=== PATIENT | female | born 1940 | race Caucasian/White ===

== ENCOUNTER 2023-12-15 20:38 | Inpatient (IN) | payer MEDICARE, SELFPAY ==
[2023-12-15 16:29] VITALS: BP 154/71; BMI 16.8
[2023-12-15 16:43] LABS: Hematocrit 39.3 % (37.0-47.0); Mean Corp Hgb Conc. 33.1 g/dL (33.0-37.0); Mean Corpuscular Hgb 28.4 pg (27.0-31.0); Mean Platelet Volume 8.8 fL (7.4-10.4); Platelet Count 389 10^3/uL (130-400); Red Blood Cell Count 4.57 10^6/uL (4.20-5.40); Red Cell Dist. Width 13.3 % (11.5-14.5)
[2023-12-15 16:59] LABS: ALT (SGPT) 15 U/L (0-35); AST (SGOT) 25 U/L (14-36); Albumin 3.6 g/dl (3.5-5.0); Alkaline Phosphatase 108 U/L (38-126); Blood Urea Nitrogen 16 mg/dl (7-17); Calcium 9.3 mg/dl (8.4-10.2); Carbon Dioxide 29 mmol/L (22-30); Chloride 95 mmol/L (98-107); Estimated Creatinine Clearance 49 ml/min; Glucose 163 mg/dl (70-99); Potassium 4.4 mmol/L (3.5-5.1); Sodium 131 mmol/L (135-145); Total Bilirubin 0.3 mg/dl (0.2-1.3); Total Protein 7.6 g/dl (6.3-8.2); eGFR > 60.00
[2023-12-15 17:00] VITALS: BP 146/66
[2023-12-15 19:04] LABS: NT-proBNP 301 pg/ml
[2023-12-15] MEDS: DUONEB 3 ML INH (19:08)
[2023-12-15] MEDS: DECADRON 10 MG IV (19:08)
--- NOTE | 2023-12-15 19:09 | ED.GENMED ---
History of Present Illness
General
Chief Complaint: Breathing Problem
Source: patient and family
Exam Limitations: none
Time Seen by Provider: 12/15/23 17:16
Nursing documentation reviewed up to this point in time: agreed with
Travel History
Have you had any contact with someone who has COVID-19?: No
Do you have any symptoms of coronavirus? Fever > 100 degrees, chills, cough, shortness of breath, sore throat, loss of taste or smell, muscle aches, or headache?: No
History of Present Illness
History of Present Illness:
Patient to ED from [facility] assisted living for low pulse ox noted this AM. SHe has a history of COPD. 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 Follows with pulmonololgy thru [facility]. +POOLE, comfortable at rest. Pulse ox 84%
RA, 92% on 3L NC. She denies fever/chills, recent illness. Chronic cough unchanged. No O2 use at home.
Past History
Past History
ED Past Medical History: COPD, GERD and Other (Glaucoma)
ED Past Surgical History: Other (abdominal hernia repair)
Social History
Tobacco: Non-smoker
Alcohol: None
Drug: None
Living: assisted living
Review of Systems
Review of Systems
Allergies reviewed?: Yes
All Other Systems: ROS reviewed and negative except as documented in HPI and ROS
Constitutional: Reports no symptoms
EENT: Reports no symptoms
Respiratory: Reports cough and trouble breathing
Cardiac: Reports no symptoms
ABD/GI: Reports no symptoms
: Reports no symptoms
Musculoskeletal: Reports no symptoms
Skin: Reports no symptoms
Neurological: Reports no symptoms
Psychiatric: Reports no symptoms
Phy Exam
General Physical Exam
General Presentation: well appearing
General age: appears stated age
General Skin: warm and dry
General Habitus: normal
Cardiovascular Exam
Cardiovascular Exam: regular rate/rhythm and no edema
Pulmonary Exam
Pulmonary Exam: chest non tender and decreased breath sounds
Breath Sounds: Wheeze: generalized (scattered exp. wheeze)
Gastrointestinal Exam
Gastrointestinal Exam: normal bowel sounds, non tender and soft
Musculoskeletal Exam
Musculoskeletal Exam: full ROM and neuro vasc intact
Skin Exam
Skin Exam: normal color, warm/dry and no rash
Psychiatric Exam
Psychiatric Exam: normal mood/affect
Scores
Heart Failure Risk
Heart Failure Risk Score: Not Applicable
Course
Orders/Labs/Results
Orders:
Orders
12/15/23 16:28
Electrocardiogram (*1) Urgent
Reason for Study: Shortness of Breath
EKG- Treatment ONCE
12/15/23 16:34
CMP [Comprehensive Metabolic Panel] Urgent
Complete Blood Count/No Diff Urgent
NT-proBNP Urgent
Comment: ADD ON
12/15/23 17:43
CR Chest - 2 Views Urgent
Comment:
Reason For Exam: SOB
12/15/23 18:13
Add On- LAB Urgent
Tests Added?: BNP
Urinalysis Reflex To Culture Urgent
12/15/23 19:00
Dexamethasone Sod Phosphate [Decadron] 10 mg IV NOW STA
Ipratropium/Albuterol Sulfate [Duoneb] 3 ml INH R NOW STA
12/15/23 19:38
COVID-19 Antigen Urgent
Source: Nasal Swab
12/15/23 20:21
Admit/Transfer Patient As Directed
Co-Sign Provider:
Level of Care: Inpatient admission
Assign to:: Medical/Surgical
Physician / Group: gabriel castro
Diagnosis: acute hypoxic resp insuff 2/2 copd vs ILD
Reason for Hospitalization: acute hypoxic resp insuff 2/2 copd vs ILD
Expected length of stay greater than two midnights?: Yes
ELOS- Estimated Length of Stay in days: 4
I certify the patient meets the requirements for IP care: Yes
Code Status As Directed
Resuscitation Status: Do not resuscitate
Reached after discussion with pt or family/Healthcare POA: Yes
Based on pt advanced directive or healthcare POA form: Yes
Decision communicated with: Per patient was signed bedside
DNR Bracelet Application ONCE
12/15/23 21:00
Doxycycline [Vibramycin] 100 mg PO Q12
Abnormal Lab Results
12/15/23
16:34
WBC 12.0 H 10^3/uL
(4.8-10.8)
Sodium 131 L mmol/L
(135-145)
Chloride 95 L mmol/L
(98-107)
Glucose 163 H mg/dl
(70-99)
12/15/23 16:34
12/15/23 16:34
Vital Signs
Initial and Last Documented VS:
Initial Vital Signs
Temp Pulse Resp BP Pulse Ox
98.1 F 98 24 154/71 92
12/15/23 16:29 12/15/23 16:29 12/15/23 16:29 12/15/23 16:29 12/15/23 16:29
Last Documented Vital Signs
Temp Pulse Resp BP Pulse Ox
97.8 F 84 31 146/66 90
12/15/23 20:25 12/15/23 19:00 12/15/23 19:00 12/15/23 17:00 12/15/23 19:50
*Radiology
Radiology exam reviewed: radiology read reviewed
*Pulse Oximetry
Patient hypoxic: yes
*Critical Care Note
Total Time (30-74mins, 75-104mins- exclusive of procedures): Not Applicable
ED Attending Note
-
Portions of this chart may have been created with voice recognition software.� Occasional wrong word or��sound alike� substitutions may have occurred due to the inherent limitations of voice recognition software.
Discharge Plan
Departure
Patient Disposition: Admit
Date of Disposition: 12/15/23
Time of Disposition: 19:17
Presentation/result/management discussed w/ accepting MD/DO: Hospitalist
Patient with high blood pressure during this ER visit?: No
Condition: Fair
Covid-19: Not Applicable
Discharge Problem:
Asthma exacerbation in COPD
Interventions
Interventions:
*Risk Screen - Suicide Last Done: 12/15/23 16:29
*General Assessment Last Done: 12/15/23 16:29
*Neglect/Abuse Screening Last Done: 12/15/23 20:51
*ED COVID-19 Vaccine History Last Done: 12/15/23 16:29
ED- Cardiac Assessment Last Done: 12/15/23 19:51
ED- Pulmonary Assessment Last Done: 12/15/23 19:51
--- NOTE | 2023-12-15 19:48 | HPS.HSE ---
Addendum entered and electronically signed by Yo Bolanos DO 12/15/23 20:59:
Patient seen and examined independently. Agree with findings and plan as set forth by TANYA Olivarez.
Patient is an 83y F with PMH significant for COPD and glaucoma who presents to ED for evaluation of POOLE. Patient recently moved into assisted living at [facility] and was walking around that facility with staff today when she was noted to be
visibly dyspneic with exertion. Her oxygen saturations were reportedly 84% on room air. Patient was brought to the ED for evaluation. She reports feeling somewhat tired today. but denies any other complaints. She denies feeling SOB - despite
having noted increased work of breathing with exertion.
Patient states that she has COPD and is followed by Pulm at [place]. She has minimal and remote history of smoking (< 5 pack years and quit in her 20s). No notable environmental exposures. No family history of pulmonary disease.
Ass:
Acute Hypoxemic Respiratory Failure
COPD with Acute Exacerbation
Suspected ILD
Glaucoma
Plan:
Admit for further evaluation and treatment.
History / exam seem more c/w ILD than COPD.
Continue steroids and follow for any clinical improvement.
Continue nebs, O2 support, etc.
Doxycycline for now empirically.
Pulmonary evaluation. CT chest for further evaluation.
Try to obtain records from her regular Hematologist Oncologist.
Original Note:
Family Physician
-
Family Physician: Rima Norman MD
Chief Complaint
-
Hypoxia, lethargy
History of Present Illness
83-year-old female from [facility] assisted living for hypoxia 84% on room air. Her family reported dyspnea on exertion with chronic cough occasional yellow in color, unchanged patient history of MAC years ago according to ER report. Patient states
that she was tired today due to not sleeping. She did not want to participate with PT and OT today. According to her son at bedside she moved from her single home to [facility] a few days ago. PT and OT have been assessing her daily
but today she did not want to participate. He states a nurse did a visit at her apartment noted her to be hypoxic on room air. She follows with pulmonology through [facility] Dr. Jeong for presumed COPD. She denies any history of interstitial lung
disease. She denies fever, chills, sore throat, headache, chest pain, palpitations, shortness of breath, abdominal pain, nausea, vomiting, diarrhea, urinary symptoms. She has medical history of COPD, GERD, glaucoma.
Medical History
Past Medical History
Past Medical History: Reports Other
Additional Past Medical History:
COPD
GERD
Glaucoma
Past Surgical History: Reports Other
Additional Past Surgical History:
Cataract extraction bilaterally with lens implants
Social History
Tobacco: Former Smoker (Age 20 2040)
Personal: Single
Living: Other (Personal care [facility])
Employment: Retired
Family History
Family History: Other (Mother of CVA father of pulmonary issues)
Allergies / Home Medications
Allergies reflects when Allergies were last updated in [facility].
Home Medications with original date entered in [facility]
Allergy/Medication List:
Allergies
Allergy/AdvReac Type Severity Reaction Status Date / Time
No Known Allergies Allergy Verified 12/15/23 16:41
Home Medications
fluticasone 100 mcg-salmeterol 50 mcg/dose blistr powdr for inhalation (Wixela Inhub) 1 inh inhalation R BID 12/15/23
latanoprost 0.005 % eye drops 1 drp BOTH EYES BID 12/15/23
Review of Systems
-
History Source: Patient and Family (Son at bedside)
A 12 point ROS was completed and negative except as noted: Yes
Constitutional: Reports Fatigue; Denies Fever or Chills
EENT: Denies Sore Throat or Runny Nose
Respiratory: Reports Cough (chronic ) and Trouble Breathing
Cardiac: Denies Chest Pain, Palpitations or Syncope
Abdomen/GI: Denies Abdominal Pain, Nausea, Vomiting, Diarrhea, Constipated, Bloody Stools or Black Stools
: Denies Dysuria, Frequency, Flank Pain, Incontinence or Difficulty Voiding
Musculoskeletal: Denies Joint Pain or Edema
Skin: Denies Itching or Rash
Neurological: Denies Dizzy, Headache or Weakness
Endocrine: Reports No Symptoms
Hematologic/Lymphatic: Reports No Symptoms
Psych: Reports Calm
Physical Exam
Vital Signs
Vital Signs
Temp Pulse Resp BP Pulse Ox
98.1 F 84 31 146/66 92
12/15/23 16:29 12/15/23 19:00 12/15/23 19:00 12/15/23 17:00 12/15/23 16:29
Physical Exam
General: Comfortable and Conversant; No Pain, Fever or Chills
HEENT: NormoCephalic, Anicteric, Moist mucous membranes, PERRLA, Hundred Conjunctivae and No Ptosis
Respiratory: Rales (Coarse throughout both lung espinoza); No Wheezes
Cardiac: S1/S2 and Regular Rhythm; No Murmur, Rub, Gallop, Peripheral Edema or JVD
Breast: Deferred by me
GI: Soft, Non Tender, Normal Bowel Sounds and No Hepatosplenomegaly
Rectal: Deferred by Provider
Genito-urinary: Deferred by me
Musculoskeletal: No Cyanosis and No Edema
Skin: Warm and Dry; No Rash or Jaundice
Neuro: AO x 3, No Motor Deficits and No Sensory Deficits; No Slurred Speech, Facial Droop, Tremors or Sedated
Psych: Calm
Laboratory Results
-
12/15/23 16:34
12/15/23 16:34
Laboratory Results
Total Bilirubin 0.3 mg/dl (0.2-1.3) 12/15/23 16:34
AST 25 U/L (14-36) 12/15/23 16:34
ALT 15 U/L (0-35) 12/15/23 16:34
Alkaline Phosphatase 108 U/L (38-126) 12/15/23 16:34
Impression/Plan
-
Impression/plan:
Admit to MedSurg
#Acute hypoxic respiratory insufficiency secondary to COPD/interstitial fibrosis
#Acute on chronic COPD exacerbation vs interstitial fibrosis flare
84% RA, 90% 4 L nasal cannula
Continue Wixela
- COVID neg
Sputum culture
-Doxycycline 100 mg every 12 hours
-IV IV Decadron 10 mg given in ER will continue Decadron 4 mg every 12 hours
-Will obtain records from patient's wet pour supervisor [facility] Dr. Jeong
-Consult pulmonary
-PT/OT/case fitter ezequiel
CXR: Extensive diffuse interstitial markings throughout both lung espinoza more prominent on right than left consistent with interstitial fibrosis. Superimposed acute inflammatory changes not excluded
EKG: NSR left anterior fascicular block HR 92 bpm, QTc 417 MS
#GERD
-Was on prior Prilosec
Glaucoma
Continue latanoprost
DVT prophylaxis
Subcu Lovenox
DNR per patient with son at bedside
[2023-12-15 20:01] LABS: COVID-19 Antigen Negative (Negative)
[2023-12-15 21:42] VITALS: BP 136/66; BMI 16.2
--- NOTE | 2023-12-15 21:45 | PTCARENOTE ---
Patient received from the ED via stretcher, pt accompanied by nephew. Patient ambulated into the room, AAOx3, VSS. 94% O2 sat on 4L O2 NC. Patient oriented to the room, educated about reporting are concerns, call benson is within reach.
[2023-12-15] MEDS: VIBRAMYCIN 100 MG PO (22:20)
[2023-12-15 23:50] VITALS: BP 118/57
[2023-12-16] MEDS: ADVAIR HFA 45/21 MCG INHALER INH (05:55)
[2023-12-16 06:30] LABS: Urine Albumin Negative (Neg - Trace); Urine Bilirubin Negative (Negative); Urine Character Clear (Clear); Urine Color Yellow; Urine Glucose Negative (Negative); Urine Ketone Negative (Negative); Urine Leukocyte Negative (Negative); Urine Nitrite Negative (Negative); Urine Occult Blood Negative (Negative); Urine Specific Gravity 1.015 (<1.030); Urine Urobilinogen Negative (Neg - 1+)
[2023-12-16 07:10] LABS: Glucose - Point of Care 143 mg/dl (70-99)
[2023-12-16] MEDS: DECADRON 4 MG IV ×2 (07:31→19:34)
[2023-12-16] MEDS: VIBRAMYCIN 100 MG PO ×2 (07:31→19:34)
[2023-12-16 07:55] VITALS: BP 133/75
[2023-12-16 08:43] LABS: % Basophils 0.2 % (0-2); % Immature Granulocytes 0.5 % (0-0.5); % Lymphocytes 8.7 % (20.5-51.1); % Monocytes 1.9 % (1.7-9.3); % Neutrophils 88.7 % (42.2-75.2); Absolute Lymphocytes 0.5 10^3/uL (1.2-3.4); Absolute Monocytes 0.1 10^3/uL (0.1-0.6); Absolute Neutrophils 5.5 10^3/uL (1.4-6.5); Hematocrit 40.3 % (37.0-47.0); Hemoglobin 13.4 g/dL (12.0-16.0); Mean Corp Hgb Conc. 33.3 g/dL (33.0-37.0); Mean Corpuscular Hgb 28.3 pg (27.0-31.0); Nucleated Red Blood Cells % 0 %; Platelet Count 393 10^3/uL (130-400); Red Blood Cell Count 4.74 10^6/uL (4.20-5.40); Red Cell Dist. Width 13.2 % (11.5-14.5); White Blood Cell Count 6.2 10^3/uL (4.8-10.8)
[2023-12-16 10:03] LABS: ALT (SGPT) 16 U/L (0-35); AST (SGOT) 25 U/L (14-36); Albumin 3.7 g/dl (3.5-5.0); Alkaline Phosphatase 89 U/L (38-126); Blood Urea Nitrogen 17 mg/dl (7-17); Calcium 9.7 mg/dl (8.4-10.2); Carbon Dioxide 29 mmol/L (22-30); Chloride 96 mmol/L (98-107); Estimated Creatinine Clearance 47 ml/min; Glucose 142 mg/dl (70-99); Potassium 5.2 mmol/L (3.5-5.1); Sodium 132 mmol/L (135-145); Total Bilirubin 0.5 mg/dl (0.2-1.3); Total Protein 7.8 g/dl (6.3-8.2); eGFR > 60.00
[2023-12-16 10:40] VITALS: PULSE 109; O2SAT 94
[2023-12-16 10:47] VITALS: BP 158/82; PULSE 106; O2SAT 94
--- NOTE | 2023-12-16 10:56 | CON.PUL ---
Consultation
Consultation Request
Date/Time Consultation Requested: 12/15/2023 - 2128
Date/Time Consultation Performed: 12/16/2023927
Requesting Provider: TANYA Olivarez
Performing Provider: Warren Morse MD
Reason for Consultation: Hypoxia; Abnormal CT Chest
Medical History
-
Chief Complaint: Hypoxia + lethargy
History of Present Illness:
83-year-old female former tobacco smoker with a past medical history of GERD, glaucoma and reported history of COPD who presents with SOB from [facility]. In triage patient was 85% on room air and she denied chest pain. She was placed onto 3 L/min
with sats improving to 92%; she was afebrile to 98.1 �F, she was tachypneic to 24 breaths/min, hypertensive to 154/71 and heart rate was 98 bpm. Labs showed leukocytosis to 12, Hb 13, chloride 95, sodium 131, proBNP 301, urinalysis negative for UTI
and COVID antigen negative. CXR showed coarse interstitial markings bilaterally (R >L), and she was given Decadron and DuoNebs in the ER and admitted to the hospitalist service. CT chest was obtained today showing diffuse bronchiectasis mainly in
the RUL, RML, lingula and lower lobes with tree-in-bud nodular opacities and small patchy opacities predominantly in the lower lobes, with dependent subsegmental atelectasis and possible 1 cm right breast nodule. There is no pneumothorax, pleural
effusion, pericardial effusion or emphysema seen. Given these findings, pulmonary service now consulted for additional management/recommendations.
When I saw the patient she was sitting in bed in no acute distress on 3 L/min nasal cannula. She was breathing comfortably. I asked her about her reported history of MAC as well as her COPD and she is not a good historian. She does not seem to
know what she takes for her COPD, she does not know if she has had a history of MAC and she is unable to recall any specific facts. She seems to be breathing comfortably though, and is mainly overwhelmed because she seems to be moving her residence
and that is what she is focusing on during our conversation. She currently denies headache chest pain, abdominal pain, fevers or chills.
PMHx: Reported history of COPD, GERD, glaucoma, former tobacco use
PSHx: Cataract surgery
Past Medical History
Past Medical History: Other (Above as per HPI)
Past Surgical History: Other (Above as per HPI)
Social History
Tobacco: Former Smoker
Alcohol: None
Drug: None
Personal: Single
Living: Other (Personal care at [facility])
Employment: Retired
Family History
Family History: Other (CVA: Mother)
Allergies / Home Medications
Allergies
Allergy/AdvReac Type Severity Reaction Status Date / Time
No Known Allergies Allergy Verified 12/15/23 16:41
Home Medications
�Medication �Instructions �Recorded �Confirmed �Last Taken �Type
fluticasone 100 mcg-salmeterol 50 1 inh inhalation R BID 12/15/23 12/15/23 Unknown History
mcg/dose blistr powdr for Lung/Breathing Issues
inhalation (Wixela Inhub)
latanoprost 0.005 % eye drops 1 drp BOTH EYES BID Eye Condition 12/15/23 12/15/23 Unknown History
Review of Systems
-
History Source: Patient
All other systems: Negative unless noted
Vitals / Labs / Diagnostic Testing
Vital Signs
Temp Pulse Resp BP Pulse Ox
97.3 F 81 16 133/75 94
12/16/23 07:55 12/16/23 07:55 12/16/23 07:55 12/16/23 07:55 12/16/23 07:55
Lab Data
12/16/23 08:20
12/16/23 08:20
Diagnostic Testing:
Physical Exam
-
HEENT: Normocephalic and Anicteric
Cardiovascular: S1/S2 and Peripheral Edema (negative)
Respiratory: Wheeze (Negative), Rales (negative) and Rhonchi (Bilaterally (R >L))
GI: Soft, Non Distended, Non Tender and Normal Bowel Sounds
Neurology: Awake and Alert
Skin: Warm and Dry
General: Comfortable, Chills (negative) and Sweats (negative)
Assessment
-
Assessment: 83-year-old female former tobacco smoker with a past medical history of GERD, glaucoma and reported history of COPD who presents with SOB from [facility]. In triage patient was 85% on room air and she denied chest pain. She was placed
onto 3 L/min with sats improving to 92%; she was afebrile to 98.1 �F, she was tachypneic to 24 breaths/min, hypertensive to 154/71 and heart rate was 98 bpm. Labs showed leukocytosis to 12, Hb 13, chloride 95, sodium 131, proBNP 301, urinalysis
negative for UTI and COVID antigen negative. CXR showed coarse interstitial markings bilaterally (R >L), and she was given Decadron and DuoNebs in the ER and admitted to the hospitalist service. CT chest was obtained today showing diffuse
bronchiectasis mainly in the RUL, RML, lingula and lower lobes with tree-in-bud nodular opacities and small patchy opacities predominantly in the lower lobes, with dependent subsegmental atelectasis and possible 1 cm right breast nodule. There is
no pneumothorax, pleural effusion, pericardial effusion or emphysema seen. Given these findings, pulmonary service now consulted for additional management/recommendations.
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
Impression:
#Acute exacerbation of COPD � although no PFTs on file she has a reported history of COPD and is on Wixela 100mcg BID at home
-After reviewing her CT chest from 12/16/2023, she has bronchiectasis seen in multiple lobes including her right upper lobe, right middle lobe, lingula and both lower lobes; there is also tree-in-bud nodular opacities seen in her lower lobes
bilaterally and other reticular opacities suspicious for underlying ILD; also cavitary lesions in her posterior RUL
#Suspected community acquired pneumonia with lower lobe predominant tree-in-bud nodules and small patchy opacities; differential also includes Aspergillosis vs worsening NTM disease
#Reported Hx of MAC --> this could be the cause of the bronchiectasis and cavitary lesion seen on CT chest from 12/16/2023
#Acute respiratory failure with hypoxia due to above
#Hypochloremic, hyponatremia � likely due to reduced PO intake
Plan:
- Although no PFTs on file or prior imaging, would treat her for COPD exacerbation with systemic steroids and Abx
- Continue decadron and wean as tolerated - currently on 4mg IV q12hr
- Given her clinical presentation with acute hypoxia and lower lobe predominant tree-in-bud nodules, we should do infectious workup with blood + sputum Cx, and change doxy to Azithromycin (QTc: 417ms from 12/15/2023 EKG) + start rocephin to cover CAP
- I do not see emphysema on her CT chest, and I presume her COPD is due to her bronchiectasis, which I presume is due to her Hx of pulmonary MAC
- Need to obtain prior records of how she was Dx with MAC, any treatment she has undergone, and recent imaging she has done, etc - obtain entire record at least for last 2-[address] Jeong @ [facility]
- Would not be unreasonable to consult ID once we confirm she has a Hx of MAC and get more history on that
- Trend WBC
- Continue maintenance inhaler with Advair HFA 45mg
- Continue prn duonebs
- Mucolytics as needed with mucinex + flutter valve; may need vest therapy if she has difficulty expectorating (no current indication of this)
- Maintain SpO2 >88-94% with supplemental O2 as needed
- Incentive spirometer encouraged
- Replete electrolytes with K>4, Mg>2
- Maintain euglycemia with goal BG >100 and <180
- prn nebulized bronchodilators
- DVT ppx
Pulmonary service will continue to follow along. She should follow-up with her pulmonary physician at [facility] following discharge, unless she would like to transfer her care to us.
Total time spent today was 55 minutes for this encounter. Time includes reviewing laboratory test/imaging results, reviewing pertinent medical records, obtaining and reviewing medical history, performing an appropriate exam, ordering medications,
tests and procedures. Time also includes documentation of this encounter, coordinating patient care and communicating with other healthcare professionals. Total time does not include separately billed tests performed on this date of service.
Data:
CT Chest without contrast 12-16-2023:
Prominent interstitial markings widespread bilaterally most likely predominantly chronic including some areas of honeycombing and bronchiectasis.
Some dependent subsegmental atelectasis in the right lung and some nonspecific tree-in-bud opacities in the left lower lobe.
Cannot exclude approximate 1 cm medial right breast nodule.
[2023-12-16] MEDS: ADVAIR HFA 45/21 MCG INHALER 2 PUFF INH ×2 (11:14→20:32)
--- NOTE | 2023-12-16 11:39 | CM ---
Patient seen bedside, initial assessment completed. Patient reports she resides at [facility]. CM placed call to [facility] to confirm patient is resident. Patient reports she does not use any DME to ambulate, is not on home O2,
denies VN or SNF history. Patient confirms PCP Dr. Norman, pharmacy used is [facility]. Patient confirms prescription coverage, denies food insecurities. CM will continue to follow for all discharge planning needs.
Plan; return to [facility], watch for VN needs.
--- NOTE | 2023-12-16 12:05 | W.PN.HOSP.TC ---
Today's Communication/Plan
-
Monitor vital signs
see plan
Continue with steroids
Pulmonary to see
Wean oxygen as tolerated
Assessment / Plan
Assessment / Plan
General: Comfortable and Conversant
HEENT: NormoCephalic, Anicteric, Moist mucous membranes
Respiratory: Rales (Coarse throughout both lung espinoza); No Wheezes
Cardiac: S1/S2 and Regular Rhythm; No Murmur
GI: Soft, Non Tender, Normal Bowel Sounds
Musculoskeletal: No Edema
Neuro: AO x 3, No Motor Deficits
Psych: Calm
cute hypoxic respiratory insufficiency secondary to COPD/interstitial fibrosis
#Acute on chronic COPD exacerbation vs interstitial fibrosis flare
84% RA, 90% 4 L nasal cannula
Continue Wixela
- COVID neg
Sputum culture
-Doxycycline 100 mg every 12 hours
cw IV decadron
-Will obtain records from patient's upper and bottom lacer hand [facility] Dr. Jeong
pulmonary consulted
-PT/OT/spring encaser ezequiel
CT scan with prominent interstitial marking widespread bilaterally most likely predominantly chronic including some areas of honeycombing and bronchiectasis. Also some dependent subsegmental atelectasis. cannot exclude breast nodule
CXR: Extensive diffuse interstitial markings throughout both lung espinoza more prominent on right than left consistent with interstitial fibrosis. Superimposed acute inflammatory changes not excluded
mild hyperkalemia
monitor
Mild hyponatremia
monitor
#GERD
-Was on prior Prilosec
Glaucoma
Continue latanoprost
DVT prophylaxis
Subcu Lovenox
DNR per patient with son at bedside on admission
Anticipated Discharge: > 48 hours
Subjective/Interval History
-
Date of Service: December 16, 2023
denies pain
Objective Data
-
Labs:
Laboratory Results
12/16/23
08:20
WBC 6.2
Hgb 13.4
Hct 40.3
Plt Count 393
Sodium 132 L
Potassium 5.2 H
Chloride 96 L
Carbon Dioxide 29
BUN 17
Creatinine 0.6
Glucose 142 H
Calcium 9.7
Total Bilirubin 0.5
AST 25
ALT 16
Alkaline Phosphatase 89
Vital Signs:
Vital Signs
Temp Pulse Resp BP Pulse Ox
97.3 F 86 17 133/75 95
12/16/23 07:55 12/16/23 11:20 12/16/23 11:20 12/16/23 07:55 12/16/23 11:20
I&O
12/15/23 12/16/23 12/17/23
06:59 06:59 06:59
Intake Total 480 / 480
Output Total 350 / 350
Balance 130 / 130
[2023-12-16] MEDS: LOKELMA 5 GRAM PO (12:33)
[2023-12-16 13:42] VITALS: BMI 16.2
[2023-12-16 15:45] VITALS: BP 130/68
[2023-12-16] MEDS: ZITHROMAX INFUSION 250 IV (15:52)
[2023-12-16] MEDS: LOVENOX 40 MG SC (17:08)
[2023-12-16] MEDS: STERILE WATER FOR INJECTION 10 ML IV (17:08)
[2023-12-16] MEDS: ROCEPHIN 1000 MG IV (17:08)
[2023-12-16 23:29] VITALS: BP 127/73
--- NOTE | 2023-12-17 05:28 | DOWNTIME ---
There was a [employer] Administrator Downtime on 12/17/2023 from 0100 to 12/17/2023 at 0337. Downtime documentation of patient's care, including medication administrations, has been reconciled in the electronic record per guidelines. Refer to the
patient's paper chart under the miscellaneous tab to see printed paper medication records and downtime forms.
[2023-12-17 07:20] LABS: % Basophils 0.2 % (0-2); % Immature Granulocytes 0.6 % (0-0.5); % Lymphocytes 5.2 % (20.5-51.1); % Monocytes 5.7 % (1.7-9.3); % Neutrophils 88.3 % (42.2-75.2); Absolute Immature Granulocytes 0.1 10^3/uL (0-0.05); Absolute Lymphocytes 0.7 10^3/uL (1.2-3.4); Absolute Monocytes 0.7 10^3/uL (0.1-0.6); Absolute Neutrophils 11.1 10^3/uL (1.4-6.5); Hematocrit 37.1 % (37.0-47.0); Hemoglobin 12.2 g/dL (12.0-16.0); Mean Corp Hgb Conc. 32.9 g/dL (33.0-37.0); Mean Corpuscular Hgb 28.3 pg (27.0-31.0); Mean Corpuscular Volume 86.1 fL (81.0-99.0); Mean Platelet Volume 9.1 fL (7.4-10.4); Nucleated Red Blood Cells % 0 %; Platelet Count 368 10^3/uL (130-400); Red Blood Cell Count 4.31 10^6/uL (4.20-5.40); White Blood Cell Count 12.6 10^3/uL (4.8-10.8)
[2023-12-17 07:45] VITALS: BP 143/62
[2023-12-17] MEDS: ADVAIR HFA 45/21 MCG INHALER 2 PUFF INH ×2 (07:57→19:37)
[2023-12-17 08:07] LABS: ALT (SGPT) 15 U/L (0-35); AST (SGOT) 24 U/L (14-36); Albumin 3.6 g/dl (3.5-5.0); Alkaline Phosphatase 79 U/L (38-126); Blood Urea Nitrogen 22 mg/dl (7-17); Calcium 9.7 mg/dl (8.4-10.2); Carbon Dioxide 26 mmol/L (22-30); Chloride 98 mmol/L (98-107); Estimated Creatinine Clearance 47 ml/min; Glucose 133 mg/dl (70-99); Potassium 4.7 mmol/L (3.5-5.1); Sodium 132 mmol/L (135-145); Total Bilirubin 0.4 mg/dl (0.2-1.3); Total Protein 7.1 g/dl (6.3-8.2); eGFR > 60.00
[2023-12-17] MEDS: ZITHROMAX 250 MG PO (08:26)
[2023-12-17] MEDS: DECADRON 4 MG IV ×2 (08:27→19:36)
--- NOTE | 2023-12-17 08:57 | PN.CDI ---
CDI
- -
CDI:
Physician Documentation Request
Admit Date: 12/15/23 20:38
Dear Doctor Claude,
Clinical Indicators:
Patient admitted with COPD exacerbation.
BMI: 16.2
12/15 note/assessment: -Muscle Loss- calf, moderate quads, moderate clavicle, severe temporal, moderate
-Subcutaneous Loss: rib cage, severe orbital, severe
-'With Observed Fat and Muscle wasting pt meets AND/ASPEN for moderate protein
calorie malnutrition of chronic illness.'
Based on the above information and your assessment, which of the following most accurately represents the patient's nutritional status?
Moderate Protein Calorie Malnutrition
Mild Protein Calorie Malnutrition
Other, please specify
[place] Criteria ([facility] Hospitalist 2017)
2 or more criteria must be present for either
non severe or severe malnutrition
Note that the criteria differs related to the
presence of an acute or chronic illness
Acute Illness Chronic Illness
Energy Intake Non Severe: <75% for >7 days Non Severe: <75% for >1 month
Severe: <50% for >5 days Severe: <75% for >1 month
Weight Loss Non Severe: 1-2% over 1 week Non Severe: 5% over 1 month
5% over 1 month 7.5% over 3 months
7.5% over 3 months 10% over 6 months
1 year N/A 20% over 1 year
Severe: >2% over 1 week Severe: >5% over 1 month
>5% over 1 month >7.5% over 3 months
>7.5% over 3 months >10% over 6 months
1 year N/A >20% over 1 year
Body Fat Non Severe: Mild Decrease Non Severe: Mild Loss
Severe: Moderate Decrease Severe: Severe Loss
Muscle Mass Non Severe: Mild Decrease Non Severe: Mild Loss
Severe: Moderate Decrease Severe: Severe Loss
Fluid Accumulation Non Severe: Mild Accumulation Non Severe: Mild Accumulation
Severe: Moderate to severe Severe: Moderate to severe
accumulation accumulation
Reduced Materials Tech Strength Non Severe: N/A Non Severe: N/A
Severe: Measurably reduced Severe: Measurably reduced
Additional criteria that can be used to Determine if Mild or Moderate Malnutrition ([employer] Manual 2018)
Mild Moderate Severe
Albumin gm/dl <3.0 gm/dl <2.5 gm/dl <2.0 gm/dl
Pre Albumin mg/dl <15 gm/dl <10 mg/dl <5.0 mg/dl
BMI <18.5 <17 <16
Use of terms such as suspected, likely, concern for, or probable (associated with a specific diagnosis that is being evaluated, monitored, or treated as if it exists) are acceptable and can be coded in the inpatient setting, when documented at the
time of discharge.
Thank you,
ANTONIO Torres RN
CDI Specialist
available via tiger text
Please use your independent medical judgment in providing your response.
--- NOTE | 2023-12-17 10:11 | W.PN.PUL3 ---
Today's Communication / Plan
-
Continue maintenance inhaler with Advair 45mcg
Steroids with Decadron
Abx for CAP
Infectious workup
Obtain medical records from [facility], Pulmonary via Dr. Jeong
Assessment
-
Assessment: 83-year-old female former tobacco smoker with a past medical history of GERD, glaucoma and reported history of COPD who presents with SOB from [employer]. In triage patient was 85% on room air and she denied chest pain. She was placed
onto 3 L/min with sats improving to 92%; she was afebrile to 98.1 �F, she was tachypneic to 24 breaths/min, hypertensive to 154/71 and heart rate was 98 bpm. Labs showed leukocytosis to 12, Hb 13, chloride 95, sodium 131, proBNP 301, urinalysis
negative for UTI and COVID antigen negative. CXR showed coarse interstitial markings bilaterally (R >L), and she was given Decadron and DuoNebs in the ER and admitted to the hospitalist service. CT chest was obtained today showing diffuse
bronchiectasis mainly in the RUL, RML, lingula and lower lobes with tree-in-bud nodular opacities and small patchy opacities predominantly in the lower lobes, with dependent subsegmental atelectasis and possible 1 cm right breast nodule. There is
no pneumothorax, pleural effusion, pericardial effusion or emphysema seen. Given these findings, pulmonary service now consulted for additional management/recommendations.
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
Impression:
#Acute exacerbation of COPD � although no PFTs on file she has a reported history of COPD and is on Wixela 100mcg BID at home
-After reviewing her CT chest from 12/16/2023, she has bronchiectasis seen in multiple lobes including her right upper lobe, right middle lobe, lingula and both lower lobes; there is also tree-in-bud nodular opacities seen in her lower lobes
bilaterally and other reticular opacities suspicious for underlying ILD; also cavitary lesions in her posterior RUL
#Suspected community acquired pneumonia with lower lobe predominant tree-in-bud nodules and small patchy opacities; differential also includes Aspergillosis vs worsening NTM disease
#Reported Hx of MAC --> this could be the cause of the bronchiectasis and cavitary lesion seen on CT chest from 12/16/2023
#Acute respiratory failure with hypoxia due to above
#Hypochloremic, hyponatremia � likely due to reduced PO intake
Plan:
- Although no PFTs on file or prior imaging, would treat her for COPD exacerbation with systemic steroids and Abx
- Continue decadron and wean as tolerated - currently on 4mg IV q12hr --> can wean tomorrow to 2mg IV q12hr
- Given her clinical presentation with acute hypoxia and lower lobe predominant tree-in-bud nodules, check infectious workup with blood + sputum Cx, and on 12/15 I changed doxy to Azithromycin (QTc: 417ms from 12/15/2023 EKG) + started rocephin to
cover CAP
- I do not see emphysema on her CT chest, and I presume her COPD is due to her bronchiectasis, which I presume is due to her Hx of pulmonary MAC
- Patient is a poor historian, hence need to obtain prior records of how she was Dx with MAC, any treatment she has undergone, and recent imaging she has done, etc - obtain entire record at least for last 2-[address] Jeong @ [facility]
- Would not be unreasonable to consult ID once we confirm she has a Hx of MAC and get more history on that
- Trend WBC
- Continue maintenance inhaler with Advair HFA 45mg 2 puffs BID, rinsing mouth after use
- Continue prn duonebs
- Mucolytics as needed with mucinex + flutter valve; may need vest therapy if she has difficulty expectorating (no current indication of this)
- Maintain SpO2 >88-94% with supplemental O2 as needed
- Incentive spirometer encouraged
- Replete electrolytes with K>4, Mg>2
- Maintain euglycemia with goal BG >100 and <180
- prn nebulized bronchodilators
- DVT ppx
Pulmonary service will continue to follow along. She should follow-up with her pulmonary physician at [facility] following discharge, unless she would like to transfer her care to us.
Total time spent today was 35 minutes for this encounter. Time includes reviewing laboratory test/imaging results, reviewing pertinent medical records, obtaining and reviewing medical history, performing an appropriate exam, ordering medications,
tests and procedures. Time also includes documentation of this encounter, coordinating patient care and communicating with other healthcare professionals. Total time does not include separately billed tests performed on this date of service.
Data:
CT Chest without contrast 12-16-2023:
Prominent interstitial markings widespread bilaterally most likely predominantly chronic including some areas of honeycombing and bronchiectasis.
Some dependent subsegmental atelectasis in the right lung and some nonspecific tree-in-bud opacities in the left lower lobe.
Cannot exclude approximate 1 cm medial right breast nodule.
Subjective Data
-
Date of Service:
Date of Service: December 17, 2023
Chief Complaint: Pulmonary Follow Up
Subjective:
Patient seen and evaluated today at bedside. She feels well. Breathing comfortably on 2 L/min nasal cannula. Per the bedside RN, patient does appear short of breath when she exerts herself. No cough reported. Patient denies headache, chest
pain, fevers or chills. Patient afebrile overnight.
Review of Systems
General: Other (Negative unless mentioned above)
Objective Data
Data Reviewed
Vital Signs / I&O / Oxygen:
Vital Signs
Temp Pulse Resp BP Pulse Ox
97.5 F 80 16 143/62 96
12/17/23 07:45 12/17/23 07:55 12/17/23 07:55 12/17/23 07:45 12/17/23 08:00
Intake and Output
12/16/23 12/17/23 12/18/23
06:59 06:59 06:59
Intake Total 480 / 480 480 / 480
Output Total 350 / 350
Balance 130 / 130 480 / 480
SaO2 96
Nasal Cannula flow liters per 2
minute
Physical Exam
General: Respiratory Distress (Negative) and Comfortable
HEENT: Normocephalic and Anicteric
Cardiovascular: S1-S2 and Peripheral Edema (Negative)
Respiratory: Wheeze (Negative), Crackles (Negative), Rhonchi (Bilateral (R >L)) and Non-Labored Respirations
GI: Soft, Non Distended, Non Tender and Normal Bowel Sounds
Neurology: Awake, Alert and Tremors (Negative)
Skin: Warm, Dry and Jaundice (Negative)
Labs/Micro/Reports
Lab Data
12/17/23 07:02
12/17/23 07:02
Microbiology
12/16/23 04:53 Urine Legionella Urinary Antigen - Final
Negative for Legionella pneumophila Serogroup 1 antigen.
A negative result does not rule out the possiblity of
Legionella infection due to other serogroups or species of
Legionella. Clinical correlation is recommended.
12/16/23 04:53 Urine Streptococcus pneumoniae Antigen (M - Final
Negative for Streptococcus pneumoniae antigen.
A negative result does not exclude infection with
Streptococcus pneumoniae. Clinical correlation is
recommended.
--- NOTE | 2023-12-17 12:23 | W.PN.HOSP.TC ---
Today's Communication/Plan
-
Monitor vital signs see plan
Continue with steroids
Wean oxygen as tolerated
Continue with antibiotics per pulmonary recommendations
Assessment / Plan
Assessment / Plan
General: Comfortable and Conversant
HEENT: NormoCephalic, Anicteric, Moist mucous membranes
Respiratory: Rales (Coarse throughout both lung espinoza); No Wheezes
Cardiac: S1/S2 and Regular Rhythm; No Murmur
GI: Soft, Non Tender, Normal Bowel Sounds
Musculoskeletal: No Edema
Neuro: AO x 3, No Motor Deficits
Psych: Calm
Acute hypoxic respiratory insufficiency secondary to bronchiectasis
#Acute on chronic COPD exacerbation vs interstitial fibrosis flare
84% RA, 90% 4 L nasal cannula
Continue Wixela
- COVID neg
Sputum culture
Pulmonary started on azithromycin, Rocephin
cw IV decadron
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 Jeong
pulmonary following
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
hx of MAC
CT scan with prominent interstitial marking widespread bilaterally most likely predominantly chronic including some areas of honeycombing and bronchiectasis. Also some dependent subsegmental atelectasis. cannot exclude breast nodule
CXR: Extensive diffuse interstitial markings throughout both lung espinoza more prominent on right than left consistent with interstitial fibrosis. Superimposed acute inflammatory changes not excluded
mild hyperkalemia
resolved
Mild hyponatremia
monitor
#GERD
-Was on prior Prilosec
Moderate Protein Calorie Malnutrition
Glaucoma
Continue latanoprost
DVT prophylaxis
Subcu Lovenox
DNR per patient with son at bedside on admission
Anticipated Discharge: 24 - 48 hours
Subjective/Interval History
-
Date of Service: December 17, 2023
Denies pain
Objective Data
-
Labs:
Laboratory Results
12/17/23
07:02
WBC 12.6 H
Hgb 12.2
Hct 37.1
Plt Count 368
Sodium 132 L
Potassium 4.7
Chloride 98
Carbon Dioxide 26
BUN 22 H
Creatinine 0.5 L
Glucose 133 H
Calcium 9.7
Total Bilirubin 0.4
AST 24
ALT 15
Alkaline Phosphatase 79
Vital Signs:
Vital Signs
Temp Pulse Resp BP Pulse Ox
97.5 F 80 16 143/62 96
12/17/23 07:45 12/17/23 07:55 12/17/23 07:55 12/17/23 07:45 12/17/23 08:00
I&O
12/16/23 12/17/23 12/18/23
06:59 06:59 06:59
Intake Total 480 / 480 480 / 480
Output Total 350 / 350
Balance 130 / 130 480 / 480
--- NOTE | 2023-12-17 12:30 | CM ---
CM spoke with Anamika from [facility], disucssed recommendations of home PT/OT when patient is stable for discharge. Anamika requesting script for PT/OT eval and treat upon discharge. Anamika provided main number for [place] [phone], ask for
Vandana. CM will continue to follow for discharge planning needs.
Plan; return to [place] with script for PT/OT eval and treat, watch for O2 needs.
[2023-12-17 15:35] VITALS: BP 130/73
[2023-12-17] MEDS: STERILE WATER FOR INJECTION 10 ML IV (17:30)
[2023-12-17] MEDS: ROCEPHIN 1000 MG IV (17:30)
[2023-12-17] MEDS: LOVENOX 40 MG SC (17:33)
[2023-12-17 23:03] VITALS: BP 133/76
[2023-12-18 07:15] VITALS: BP 126/61
[2023-12-18 07:41] LABS: % Basophils 0.2 % (0-2); % Immature Granulocytes 0.3 % (0-0.5); % Lymphocytes 5.3 % (20.5-51.1); % Monocytes 8.5 % (1.7-9.3); % Neutrophils 85.7 % (42.2-75.2); Absolute Lymphocytes 0.6 10^3/uL (1.2-3.4); Absolute Neutrophils 10.4 10^3/uL (1.4-6.5); Hematocrit 37.5 % (37.0-47.0); Hemoglobin 11.9 g/dL (12.0-16.0); Mean Corp Hgb Conc. 31.7 g/dL (33.0-37.0); Mean Corpuscular Hgb 27.4 pg (27.0-31.0); Mean Corpuscular Volume 86.4 fL (81.0-99.0); Nucleated Red Blood Cells % 0 %; Platelet Count 357 10^3/uL (130-400); Red Blood Cell Count 4.34 10^6/uL (4.20-5.40); Red Cell Dist. Width 13.1 % (11.5-14.5); White Blood Cell Count 12.1 10^3/uL (4.8-10.8)
[2023-12-18] MEDS: ADVAIR HFA 45/21 MCG INHALER 2 PUFF INH ×2 (07:55→19:21)
[2023-12-18 08:05] LABS: ALT (SGPT) 15 U/L (0-35); AST (SGOT) 21 U/L (14-36); Albumin 3.3 g/dl (3.5-5.0); Alkaline Phosphatase 70 U/L (38-126); Blood Urea Nitrogen 20 mg/dl (7-17); Calcium 9.4 mg/dl (8.4-10.2); Carbon Dioxide 30 mmol/L (22-30); Chloride 98 mmol/L (98-107); Estimated Creatinine Clearance 47 ml/min; Glucose 119 mg/dl (70-99); Potassium 4.7 mmol/L (3.5-5.1); Sodium 134 mmol/L (135-145); Total Bilirubin 0.3 mg/dl (0.2-1.3); Total Protein 6.7 g/dl (6.3-8.2); eGFR > 60.00
[2023-12-18 08:08] LABS: Procalcitonin < 0.05 ng/ml (0.0-0.25)
[2023-12-18] MEDS: ZITHROMAX 250 MG PO (08:11)
[2023-12-18] MEDS: DECADRON 4 MG IV (08:11)
[2023-12-18 10:30] VITALS: PULSE 105; O2SAT 93
--- NOTE | 2023-12-18 11:13 | CM ---
Patient seen bedside, remains on O2. If patient requires O2 on discharge, will need delivered to [place], will need script for O2 upon discharge, will also need script PT/OT upon discharge. Patient reports she has family who can provide
transportation when stable. CM spoke with Vandana [address] [place] ([phone]) to provide update. CM will continue to follow for discharge planning needs.
Plan; return to [place], will need script for PT/OT, watch for O2 needs.
--- NOTE | 2023-12-18 11:18 | W.PN.HOSP.TC ---
Today's Communication/Plan
-
Monitor vital signs
see plan
Continue with IV steroids
Antibiotics
Awaiting records
Wean oxygen as tolerated
Assessment / Plan
Assessment / Plan
General: Comfortable and Conversant
HEENT: NormoCephalic, Anicteric, Moist mucous membranes
Respiratory: Rales (Coarse throughout both lung espinoza); No Wheezes
Cardiac: S1/S2 and Regular Rhythm; No Murmur
GI: Soft, Non Tender, Normal Bowel Sounds
Musculoskeletal: No Edema
Neuro: AO x 3, No Motor Deficits
Psych: Calm
Acute hypoxic respiratory insufficiency secondary to bronchiectasis
#Acute on chronic COPD exacerbation vs interstitial fibrosis flare
84% RA, 90% 4 L nasal cannula
Continue Wixela
- COVID neg
Sputum culture
Pulmonary started on azithromycin, Rocephin
cw IV decadron
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
pulmonary following
hx of MAC
CT scan with prominent interstitial marking widespread bilaterally most likely predominantly chronic including some areas of honeycombing and bronchiectasis. Also some dependent subsegmental atelectasis. cannot exclude breast nodule
CXR: Extensive diffuse interstitial markings throughout both lung espinoza more prominent on right than left consistent with interstitial fibrosis. Superimposed acute inflammatory changes not excluded
mild hyperkalemia
resolved
Mild hyponatremia
monitor
#GERD
-Was on prior Prilosec
Moderate Protein Calorie Malnutrition
Glaucoma
Continue latanoprost
DVT prophylaxis
Subcu Lovenox
DNR per patient with son at bedside on admission
Anticipated Discharge: Within 24 hours
Subjective/Interval History
-
Date of Service: December 18, 2023
denies pain
Objective Data
-
Labs:
Laboratory Results
12/18/23
07:24
WBC 12.1 H
Hgb 11.9 L
Hct 37.5
Plt Count 357
Sodium 134 L
Potassium 4.7
Chloride 98
Carbon Dioxide 30
BUN 20 H
Creatinine 0.6
Glucose 119 H
Calcium 9.4
Total Bilirubin 0.3
AST 21
ALT 15
Alkaline Phosphatase 70
Vital Signs:
Vital Signs
Temp Pulse Resp BP Pulse Ox
98.1 F 78 16 126/61 93
12/18/23 07:15 12/18/23 07:57 12/18/23 07:57 12/18/23 07:15 12/18/23 08:00
I&O
12/17/23 12/18/23 12/19/23
06:59 06:59 06:59
Intake Total 480 / 480 1380 / 1380
Balance 480 / 480 1380 / 1380
--- NOTE | 2023-12-18 13:00 | PTCARENOTE ---
Pt ambulated with PT on room air oxygen level dropped to 86% with heart rate as high as 130s. Pt felt overall weak with some shortness of breath not worsened. Pt ambulated about 150-200ft.
--- NOTE | 2023-12-18 13:02 | W.PN.PUL3 ---
Today's Communication / Plan
-
Continue maintenance inhaler with Advair 45mcg
Steroids with Decadron and wean as tolerated
Abx for CAP
Infectious workup including sputum Cx
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 Jeong
Assessment
-
Assessment: 83-year-old female former tobacco smoker with a past medical history of GERD, glaucoma and reported history of COPD who presents with SOB from [place]. In triage patient was 85% on room air and she denied chest pain. She was placed
onto 3 L/min with sats improving to 92%; she was afebrile to 98.1 �F, she was tachypneic to 24 breaths/min, hypertensive to 154/71 and heart rate was 98 bpm. Labs showed leukocytosis to 12, Hb 13, chloride 95, sodium 131, proBNP 301, urinalysis
negative for UTI and COVID antigen negative. CXR showed coarse interstitial markings bilaterally (R >L), and she was given Decadron and DuoNebs in the ER and admitted to the hospitalist service. CT chest was obtained today showing diffuse
bronchiectasis mainly in the RUL, RML, lingula and lower lobes with tree-in-bud nodular opacities and small patchy opacities predominantly in the lower lobes, with dependent subsegmental atelectasis and possible 1 cm right breast nodule. There is
no pneumothorax, pleural effusion, pericardial effusion or emphysema seen. Given these findings, pulmonary service now consulted for additional management/recommendations.
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
dermatophyte, vitamin D deficiency
Impression:
#Acute exacerbation of COPD � records reviewed - she has a Hx of pulmonary MAC, COPD and restrictive lung disease - previously on Wixela 100mcg BID at home but stopped per medical records
-After reviewing her CT chest from 12/16/2023, she has bronchiectasis seen in multiple lobes including her right upper lobe, right middle lobe, lingula and both lower lobes; there is also tree-in-bud nodular opacities seen in her lower lobes
bilaterally and other reticular opacities suspicious for underlying ILD; also cavitary lesions in her posterior RUL
#Suspected community acquired pneumonia with lower lobe predominant tree-in-bud nodules and small patchy opacities; differential also includes Aspergillosis vs worsening NTM disease
#Severe restrictive lung disease (FVC: 36% / 0.85 L via spirometry from September 2022)
#Hx of pulmonary MAC --> likely the cause of the her pulmonary bronchiectasis and cavitary lesion seen on CT chest from 12/16/2023; unclear if she was ever Tx with ABx or ever saw ID
#Acute respiratory failure with hypoxia due to above
#Hypochloremic, hyponatremia � likely due to reduced PO intake
#Former tobacco use disorder (1 PPD)
Plan:
- Given her Hx of COPD, continue treatment for COPD exacerbation with systemic steroids and Abx
- She previously was on Wixela 100mcg at home but did not feel this benefited her so she stopped it and was using albuterol prn
- Continue decadron and wean as tolerated - currently on 4mg IV q12hr --> can wean today to 2mg IV q12hr
- Given her clinical presentation with acute hypoxia and lower lobe predominant tree-in-bud nodules, check infectious workup with blood + sputum Cx, and on 12/15 I changed doxy to Azithromycin (QTc: 417ms from 12/15/2023 EKG) + started rocephin to
cover CAP
- I do not see emphysema on her CT chest, and I presume her COPD is due to her bronchiectasis (I presume is due to her Hx of pulmonary MAC) and asthma (She has significant improvement in the small lung espinoza seen on PFT as well as normalization of
her gas exchange capacity when accounting for alveolar volume involving gas exchange --> Dlco: 38%; DLco/VA: 97%).
- Per medical records from her prior grain combine driver, she has persistent traction bronchiectasis seen on recent CT chest from December 2019 worst in the RML + lingula with scattered areas of bronchiectasis bilaterally (R >L), with lower lobe predominant
mucous plugging and tree-in-bud nodular opacities bilaterally (R >L).
- I personally reviewed the patient's last pulmonology note from Dr. Jeong on 04/02/2023, and given that the patient had no signs of respiratory infection she was not given any antibiotics at least at that last office visit or the prior visit
before that which was on 10/02/2022
- She was supposed to follow-up this past winter 2023 for repeat visit with PFTs, unclear if that ever occurred.
- Once patient is discharged she should follow-up again with her grain combine driver at [facility]
- Trend WBC
- Continue maintenance inhaler with Advair HFA 45mg 2 puffs BID, rinsing mouth after use --> DC home on Wixela 100mcg and advised to use standing and not as needed
- Continue prn duonebs
- Mucolytics as needed with mucinex + flutter valve; may need vest therapy if she has difficulty expectorating (no current indication of this)
- Maintain SpO2 >88-94% with supplemental O2 as needed
- Incentive spirometer encouraged
- Replete electrolytes with K>4, Mg>2
- Maintain euglycemia with goal BG >100 and <180
- prn nebulized bronchodilators
- DVT ppx
Pulmonary service will continue to follow along. She should follow-up with her pulmonary physician at [facility] following discharge, unless she would like to transfer her care to us.
Total time spent today was 35 minutes for this encounter. Time includes reviewing laboratory test/imaging results, reviewing pertinent medical records, obtaining and reviewing medical history, performing an appropriate exam, ordering medications,
tests and procedures. Time also includes documentation of this encounter, coordinating patient care and communicating with other healthcare professionals. Total time does not include separately billed tests performed on this date of service.
Data:
CT Chest without contrast 12-16-2023:
Prominent interstitial markings widespread bilaterally most likely predominantly chronic including some areas of honeycombing and bronchiectasis.
Some dependent subsegmental atelectasis in the right lung and some nonspecific tree-in-bud opacities in the left lower lobe.
Cannot exclude approximate 1 cm medial right breast nodule.
Outpatient Pulmonary medical records:
PFT:
10/02/2022: FEV1/FVC: 78; post-BD FEV1: 0.70 L / 40% with +5% change with bronchodilator; Post-BD FVC: 0.86 L / 37% with +1 % change with BD; BDP81-49%: 51% that improved by +33% with BD; T%; VC: 36%; RV: 41%; DLCO: 36%; DLco/VA: 97%
6MWT:
10/02/2022: Resting as able to: 93% with HR: 92, BP 146/79 with Mehran scale: 3. Jamshid SaO2 with walking was 91% with max HR 108. Patient walked total 950 feet with no limitations and tolerated well. No oxygen indicated.
CT Chest 12/2019:
Impression: 1. Persistent traction bronchiectasis most obvious at the right middle lobe and lingula with additional scattered areas of bronchiectasis of both lungs, right greater than left. Appearance possible slight increase in mucous plugging of
some of the segmental dilated bronchi of the lower lobes.
2. Persistent reticular nodular tree-in-bud opacities of the lungs, right greater than left which can be seen with prior pulmonary infections including MARITZA and MAC.
3. Stable subpleural areas of consolidation of the right lung.
Subjective Data
-
Date of Service:
Date of Service: December 18, 2023
Chief Complaint: Pulmonary Follow Up
Subjective:
Patient seen and evaluated at bedside. She is on 2 L/min nasal cannula breathing comfortably. She denies any overnight events. Not bringing up any phlegm. Denies chest pain, headache, fevers or chills.
Review of Systems
General: Other (Negative unless mentioned above)
Objective Data
Data Reviewed
Vital Signs / I&O / Oxygen:
Vital Signs
Temp Pulse Resp BP Pulse Ox
98.1 F 78 16 126/61 93
12/18/23 07:15 12/18/23 07:57 12/18/23 07:57 12/18/23 07:15 12/18/23 08:00
Intake and Output
12/17/23 12/18/23 12/19/23
06:59 06:59 06:59
Intake Total 480 / 480 1380 / 1380
Balance 480 / 480 1380 / 1380
SaO2 93
Nasal Cannula flow liters per 2
minute
Physical Exam
General: Respiratory Distress (Negative) and Comfortable
HEENT: Normocephalic and Anicteric
Cardiovascular: S1-S2 and Peripheral Edema (Negative)
Respiratory: Wheeze (Negative), Crackles (bases), Rhonchi (Bilateral (R >L)) and Non-Labored Respirations
GI: Soft, Non Distended, Non Tender and Normal Bowel Sounds
Neurology: Awake, Alert and Tremors (Negative)
Skin: Warm, Dry and Jaundice (Negative)
Labs/Micro/Reports
Lab Data
12/18/23 07:24
12/18/23 07:24
Microbiology
12/16/23 14:59 Blood/Venous Blood Culture - Preliminary
No Growth in 48 hours- Final report to follow
12/16/23 15:40 Blood/Venous Blood Culture - Preliminary
No Growth in 24 hours- Final report to follow
12/16/23 04:53 Urine Legionella Urinary Antigen - Final
Negative for Legionella pneumophila Serogroup 1 antigen.
A negative result does not rule out the possiblity of
Legionella infection due to other serogroups or species of
Legionella. Clinical correlation is recommended.
12/16/23 04:53 Urine Streptococcus pneumoniae Antigen (M - Final
Negative for Streptococcus pneumoniae antigen.
A negative result does not exclude infection with
Streptococcus pneumoniae. Clinical correlation is
recommended.
[2023-12-18 15:30] VITALS: BP 104/68
[2023-12-18] MEDS: LOVENOX 40 MG SC (18:12)
[2023-12-18] MEDS: ROCEPHIN 1000 MG IV (18:12)
[2023-12-18] MEDS: STERILE WATER FOR INJECTION 10 ML IV (18:12)
[2023-12-18] MEDS: DECADRON 2 MG IV (19:47)
[2023-12-18 23:24] VITALS: BP 104/48
[2023-12-19] MEDS: ADVAIR HFA 45/21 MCG INHALER 2 PUFF INH ×2 (07:09→20:24)
[2023-12-19 07:40] VITALS: BP 139/90
[2023-12-19] MEDS: ZITHROMAX 250 MG PO (09:07)
[2023-12-19] MEDS: DECADRON 2 MG IV ×2 (09:07→20:03)
[2023-12-19 09:12] LABS: % Basophils 0.2 % (0-2); % Immature Granulocytes 0.6 % (0-0.5); % Lymphocytes 6.2 % (20.5-51.1); % Monocytes 9.1 % (1.7-9.3); % Neutrophils 83.9 % (42.2-75.2); Absolute Immature Granulocytes 0.1 10^3/uL (0-0.05); Absolute Lymphocytes 0.8 10^3/uL (1.2-3.4); Absolute Monocytes 1.2 10^3/uL (0.1-0.6); Absolute Neutrophils 11.3 10^3/uL (1.4-6.5); Hematocrit 38.7 % (37.0-47.0); Hemoglobin 12.4 g/dL (12.0-16.0); Mean Corpuscular Hgb 28.2 pg (27.0-31.0); Mean Platelet Volume 9.3 fL (7.4-10.4); Nucleated Red Blood Cells % 0 %; Platelet Count 370 10^3/uL (130-400); Red Cell Dist. Width 13.2 % (11.5-14.5); White Blood Cell Count 13.4 10^3/uL (4.8-10.8)
--- NOTE | 2023-12-19 09:17 | W.PN.PUL3 ---
Today's Communication / Plan
-
DC home on Wixela 100mcg and advised to use 1 inhalation BID and not as needed
Wean steroids today to prednisone starting at 40mg and reduce by 10mg every 4th day until off
Abx for CAP --> Tx for 7 days with a beta-lactam and 5 days with zithromax
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 Jeong
Pulmonary service will continue to follow along while she remains hospitalized.
Assessment
-
Assessment: 83-year-old female former tobacco smoker with a past medical history of GERD, glaucoma and reported history of COPD who presents with SOB from [place]. In triage patient was 85% on room air and she denied chest pain. She was placed
onto 3 L/min with sats improving to 92%; she was afebrile to 98.1 �F, she was tachypneic to 24 breaths/min, hypertensive to 154/71 and heart rate was 98 bpm. Labs showed leukocytosis to 12, Hb 13, chloride 95, sodium 131, proBNP 301, urinalysis
negative for UTI and COVID antigen negative. CXR showed coarse interstitial markings bilaterally (R >L), and she was given Decadron and DuoNebs in the ER and admitted to the hospitalist service. CT chest was obtained today showing diffuse
bronchiectasis mainly in the RUL, RML, lingula and lower lobes with tree-in-bud nodular opacities and small patchy opacities predominantly in the lower lobes, with dependent subsegmental atelectasis and possible 1 cm right breast nodule. There is
no pneumothorax, pleural effusion, pericardial effusion or emphysema seen. Given these findings, pulmonary service now consulted for additional management/recommendations.
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
dermatophyte, vitamin D deficiency
Impression:
#Acute exacerbation of COPD � records reviewed - she has a Hx of pulmonary MAC, COPD and restrictive lung disease - previously on Wixela 100mcg BID at home but stopped per medical records
-After reviewing her CT chest from 12/16/2023, she has bronchiectasis seen in multiple lobes including her right upper lobe, right middle lobe, lingula and both lower lobes; there is also tree-in-bud nodular opacities seen in her lower lobes
bilaterally and other reticular opacities suspicious for underlying ILD; also cavitary lesions in her posterior RUL
#Suspected community acquired pneumonia with lower lobe predominant tree-in-bud nodules and small patchy opacities; differential also includes Aspergillosis vs worsening NTM disease
#Severe restrictive lung disease (FVC: 36% / 0.85 L via spirometry from September 2022)
#Hx of pulmonary MAC --> likely the cause of the her pulmonary bronchiectasis and cavitary lesion seen on CT chest from 12/16/2023; unclear if she was ever Tx with ABx or ever saw ID
#Acute respiratory failure with hypoxia due to above
#Hypochloremic, hyponatremia � likely due to reduced PO intake
#Former tobacco use disorder (1 PPD)
Plan:
- Given her Hx of COPD, continue treatment for COPD exacerbation with systemic steroids and Abx
- She previously was on Wixela 100mcg at home but did not feel this benefited her so she stopped it and was using albuterol prn
- Continue decadron and wean as tolerated - currently on 2mg IV q12hr weaned from 4mg IV q12hr --> can wean today to prednisone starting at 40mg and reduce by 10mg every 4th day until off
- Given her clinical presentation with acute hypoxia and lower lobe predominant tree-in-bud nodules, check infectious workup with blood Cx (NGTD) + sputum Cx, and on 12/15 I changed doxy to Azithromycin (QTc: 417ms from 12/15/2023 EKG) + started
rocephin to cover CAP --> Tx for 7 days with a beta-lactam and 5 days with zithromax
- I do not see emphysema on her CT chest, and I presume her COPD is due to her bronchiectasis (I presume is due to her Hx of pulmonary MAC) and asthma (She has significant improvement in the small lung espinoza seen on PFT as well as normalization of
her gas exchange capacity when accounting for alveolar volume involving gas exchange --> Dlco: 38%; DLco/VA: 97%).
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
mucous plugging and tree-in-bud nodular opacities bilaterally (R >L).
- I personally reviewed the patient's last pulmonology note from Dr. Jeong on 04/02/2023, and given that the patient had no signs of respiratory infection she was not given any antibiotics at least at that last office visit or the prior visit
before that which was on 10/02/2022
- She was supposed to follow-up this past winter 2023 for repeat visit with PFTs, unclear if that ever occurred.
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
- Trend WBC
- Continue maintenance inhaler with Advair HFA 45mg 2 puffs BID, rinsing mouth after use --> DC home on Wixela 100mcg and advised to use standing and not as needed
- Continue prn duonebs while hospitalized
- Mucolytics as needed with mucinex + flutter valve; may need vest therapy if she has difficulty expectorating (no current indication of this)
- Maintain SpO2 >88-94% with supplemental O2 as needed
- Incentive spirometer encouraged
- Replete electrolytes with K>4, Mg>2
- Maintain euglycemia with goal BG >100 and <180
- prn nebulized bronchodilators
- DVT ppx
Patient stable for discharge home from pulmonary perspective. Pulmonary service will continue to follow along while she remains hospitalized. She should follow-up with her pulmonary physician at [facility] following discharge, unless she would like to
transfer her care to us.
Total time spent today was 35 minutes for this encounter. Time includes reviewing laboratory test/imaging results, reviewing pertinent medical records, obtaining and reviewing medical history, performing an appropriate exam, ordering medications,
tests and procedures. Time also includes documentation of this encounter, coordinating patient care and communicating with other healthcare professionals. Total time does not include separately billed tests performed on this date of service.
Data:
CT Chest without contrast 12-16-2023:
Prominent interstitial markings widespread bilaterally most likely predominantly chronic including some areas of honeycombing and bronchiectasis.
Some dependent subsegmental atelectasis in the right lung and some nonspecific tree-in-bud opacities in the left lower lobe.
Cannot exclude approximate 1 cm medial right breast nodule.
Outpatient Pulmonary medical records:
PFT:
10/02/2022: FEV1/FVC: 78; post-BD FEV1: 0.70 L / 40% with +5% change with bronchodilator; Post-BD FVC: 0.86 L / 37% with +1 % change with BD; VQZ73-32%: 51% that improved by +33% with BD; T%; VC: 36%; RV: 41%; DLCO: 36%; DLco/VA: 97%
6MWT:
10/02/2022: Resting as able to: 93% with HR: 92, BP 146/79 with Mehran scale: 3. Jamshid SaO2 with walking was 91% with max HR 108. Patient walked total 950 feet with no limitations and tolerated well. No oxygen indicated.
CT Chest 12/2019:
Impression: 1. Persistent traction bronchiectasis most obvious at the right middle lobe and lingula with additional scattered areas of bronchiectasis of both lungs, right greater than left. Appearance possible slight increase in mucous plugging of
some of the segmental dilated bronchi of the lower lobes.
2. Persistent reticular nodular tree-in-bud opacities of the lungs, right greater than left which can be seen with prior pulmonary infections including MARITZA and MAC.
3. Stable subpleural areas of consolidation of the right lung.
Subjective Data
-
Date of Service:
Date of Service: December 19, 2023
Chief Complaint: Pulmonary Follow Up
Subjective:
Patient seen and evaluated today at bedside. Currently on 2 L/min saturating 93%. She has been prepared for a ambulatory pulse oximetry test. She has no complaints. Eager to go home. Denies chest pain, headache, fevers or chills.
Review of Systems
General: Other (Negative unless mentioned above)
Objective Data
Data Reviewed
Vital Signs / I&O / Oxygen:
Vital Signs
Temp Pulse Resp BP Pulse Ox
97.7 F 85 18 139/90 91
12/19/23 07:40 12/19/23 07:40 12/19/23 07:40 12/19/23 07:40 12/19/23 07:40
Intake and Output
12/18/23 12/19/23 12/20/23
06:59 06:59 06:59
Intake Total 1380 / 1380 540 / 540
Balance 1380 / 1380 540 / 540
SaO2 91
Nasal Cannula flow liters per 2
minute
Physical Exam
General: Respiratory Distress (Negative) and Comfortable
HEENT: Normocephalic and Anicteric
Cardiovascular: S1-S2 and Peripheral Edema (Negative)
Respiratory: Wheeze (Negative), Crackles (Bilaterally), Rhonchi (Bilateral (R >L)) and Non-Labored Respirations
GI: Soft, Non Distended, Non Tender and Normal Bowel Sounds
Neurology: Awake, Alert and Tremors (Negative)
Skin: Warm, Dry and Jaundice (Negative)
Labs/Micro/Reports
Microbiology
12/16/23 15:40 Blood/Venous Blood Culture - Preliminary
No Growth in 48 hours- Final report to follow
12/16/23 14:59 Blood/Venous Blood Culture - Preliminary
No Growth in 48 hours- Final report to follow
12/16/23 04:53 Urine Legionella Urinary Antigen - Final
Negative for Legionella pneumophila Serogroup 1 antigen.
A negative result does not rule out the possiblity of
Legionella infection due to other serogroups or species of
Legionella. Clinical correlation is recommended.
12/16/23 04:53 Urine Streptococcus pneumoniae Antigen (M - Final
Negative for Streptococcus pneumoniae antigen.
A negative result does not exclude infection with
Streptococcus pneumoniae. Clinical correlation is
recommended.
[2023-12-19 09:27] LABS: Blood Urea Nitrogen 18 mg/dl (7-17); Calcium 9.3 mg/dl (8.4-10.2); Carbon Dioxide 29 mmol/L (22-30); Chloride 94 mmol/L (98-107); Estimated Creatinine Clearance 47 ml/min; Glucose 154 mg/dl (70-99); Potassium 4.5 mmol/L (3.5-5.1); Sodium 131 mmol/L (135-145); eGFR > 60.00
--- NOTE | 2023-12-19 11:40 | W.PN.HOSP.TC ---
Today's Communication/Plan
-
Monitor vital signs
see plan
Home O2 evaluation
Continue with steroids
Continue antibiotics
dc planning
Assessment / Plan
Assessment / Plan
General: Comfortable and Conversant
HEENT: NormoCephalic, Anicteric, Moist mucous membranes
Respiratory: Rales (Coarse throughout both lung espinoza); No Wheezes
Cardiac: S1/S2 and Regular Rhythm; No Murmur
GI: Soft, Non Tender, Normal Bowel Sounds
Musculoskeletal: No Edema
Neuro: AO x 3, No Motor Deficits
Psych: Calm
Acute hypoxic respiratory insufficiency secondary to bronchiectasis
#Acute on chronic COPD exacerbation vs interstitial fibrosis flare
84% RA, 90% 4 L nasal cannula; now on 2L; wean o2 as tolertaed; home o2 eval 12/18
Continue Wixela
- COVID neg
Sputum culture; unable to produce sputum
Pulmonary started on azithromycin, Rocephin
cw IV decadron; switch to prednisone with taper on dc
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
pulmonary following
hx of MAC
CT scan with prominent interstitial marking widespread bilaterally most likely predominantly chronic including some areas of honeycombing and bronchiectasis. Also some dependent subsegmental atelectasis. cannot exclude breast nodule
Patient is in need of oxygen at 2 liters/minute via nasal cannula continuously due to pulse oximetry of 87% on room air at rest. Oxygen will help to improve hypoxemia. Patient is mobile within the home. DuoNeb therapy has been tried and is
ineffective in treating hypoxemia related symptoms. Oxygen is needed to improve symptoms.
CXR: Extensive diffuse interstitial markings throughout both lung espinoza more prominent on right than left consistent with interstitial fibrosis. Superimposed acute inflammatory changes not excluded
mild hyperkalemia
resolved
Mild hyponatremia
monitor
#GERD
-Was on prior Prilosec
Moderate Protein Calorie Malnutrition
Glaucoma
Continue latanoprost
DVT prophylaxis
Subcu Lovenox
DNR per patient with son at bedside on admission
Anticipated Discharge: Within 24 hours
Subjective/Interval History
-
Date of Service: December 19, 2023
denies pain
Objective Data
-
Labs:
Laboratory Results
12/19/23
08:50
WBC 13.4 H
Hgb 12.4
Hct 38.7
Plt Count 370
Sodium 131 L
Potassium 4.5
Chloride 94 L
Carbon Dioxide 29
BUN 18 H
Creatinine 0.6
Glucose 154 H
Calcium 9.3
Vital Signs:
Vital Signs
Temp Pulse Resp BP Pulse Ox
97.7 F 85 18 139/90 87
12/19/23 07:40 12/19/23 07:40 12/19/23 07:40 12/19/23 07:40 12/19/23 11:24
I&O
12/18/23 12/19/23 12/20/23
06:59 06:59 06:59
Intake Total 1380 / 1380 540 / 540
Balance 1380 / 1380 540 / 540
--- NOTE | 2023-12-19 11:49 | PTCARENOTE ---
Patient with pulse ox of 87% room air. Placed oxygen 2L NC back on patient. aware.
[2023-12-19 12:37] VITALS: BMI 16.2
--- NOTE | 2023-12-19 13:34 | PTCARENOTE ---
Patient with pulse ox of 87% on RA sitting in bed without exertion. Patient placed back on 2L oxygen via NC. Patient remains with [facility]. 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 Spoke to nephew who will transport patient if she gets discharged tomorrow.
--- NOTE | 2023-12-19 14:03 | CM ---
Patient seen bedside, discussed plan for discharge tomorrow, dona Patterson will provide transportation home. IMM reviewed, signed, placed in chart. Clinicals faxed to [facility] for home O2, portable will be delivered to patient today, concentrator to be
delivered to [facility] today as facility needs O2 set up prior to discharge. CM updated Yvonne at [facility]. CM will continue to follow for all discharge planning needs.
Plan; d/c tomorrow to [facility] with O2, Hospitalist will leave script for PT/OT in patients chart.
[2023-12-19 14:20] VITALS: PULSE 113; O2SAT 92
[2023-12-19 15:25] VITALS: BP 170/78
[2023-12-19] MEDS: LOVENOX 40 MG SC (17:07)
[2023-12-19] MEDS: ROCEPHIN 1000 MG IV (17:08)
[2023-12-19] MEDS: STERILE WATER FOR INJECTION 10 ML IV (17:08)
[2023-12-19 23:30] VITALS: BP 112/60
[2023-12-20 07:23] LABS: % Basophils 0.2 % (0-2); % Immature Granulocytes 0.5 % (0-0.5); % Lymphocytes 7.6 % (20.5-51.1); % Monocytes 11.1 % (1.7-9.3); % Neutrophils 80.6 % (42.2-75.2); Absolute Immature Granulocytes 0.1 10^3/uL (0-0.05); Absolute Lymphocytes 0.9 10^3/uL (1.2-3.4); Absolute Monocytes 1.3 10^3/uL (0.1-0.6); Absolute Neutrophils 9.7 10^3/uL (1.4-6.5); Hematocrit 40.3 % (37.0-47.0); Hemoglobin 12.9 g/dL (12.0-16.0); Mean Corpuscular Hgb 27.9 pg (27.0-31.0); Mean Platelet Volume 9.3 fL (7.4-10.4); Nucleated Red Blood Cells % 0 %; Platelet Count 373 10^3/uL (130-400); Red Blood Cell Count 4.63 10^6/uL (4.20-5.40); Red Cell Dist. Width 13.2 % (11.5-14.5)
[2023-12-20 07:36] LABS: Blood Urea Nitrogen 15 mg/dl (7-17); Calcium 9.7 mg/dl (8.4-10.2); Carbon Dioxide 28 mmol/L (22-30); Chloride 95 mmol/L (98-107); Estimated Creatinine Clearance 47 ml/min; Glucose 108 mg/dl (70-99); Potassium 4.6 mmol/L (3.5-5.1); Sodium 131 mmol/L (135-145); eGFR > 60.00
[2023-12-20 07:55] VITALS: BP 162/74
[2023-12-20] MEDS: ADVAIR HFA 45/21 MCG INHALER 2 PUFF INH (08:13)
[2023-12-20] MEDS: ZITHROMAX 250 MG PO (08:14)
[2023-12-20] MEDS: DELTASONE 40 MG PO (08:14)
--- NOTE | 2023-12-20 10:52 | W.PN.HOSP.TC ---
Addendum entered and electronically signed by Vincenzo Arce MD 12/20/23 13:50:
Suspected community-acquired pneumonia, on antibiotics
Original Note:
Today's Communication/Plan
-
monitor vitals
see plan
cw prednisone with taper
cw abx
home o2
dc today
time of discharge 38 minutes
Assessment / Plan
Assessment / Plan
General: Comfortable and Conversant
HEENT: NormoCephalic, Anicteric, Moist mucous membranes
Respiratory: Rales (Coarse throughout both lung espinoza); No Wheezes
Cardiac: S1/S2 and Regular Rhythm; No Murmur
GI: Soft, Non Tender, Normal Bowel Sounds
Musculoskeletal: No Edema
Neuro: AO x 3, No Motor Deficits
Psych: Calm
Acute hypoxic respiratory insufficiency secondary to bronchiectasis
#Acute on chronic COPD exacerbation vs interstitial fibrosis flare
84% RA, 90% 4 L nasal cannula; now on 2L; home o2 qualifies her for o2
Continue Wixela
- COVID neg
Sputum culture; unable to produce sputum
Pulmonary started on azithromycin, Rocephin, DC will do cefdinir and azithromycin
Now on prednisone, will do taper on DC
obtain records from patient's job honer [facility] Dr. Jeong
pulmonary following
hx of MAC
CT scan with prominent interstitial marking widespread bilaterally most likely predominantly chronic including some areas of honeycombing and bronchiectasis. Also some dependent subsegmental atelectasis. cannot exclude breast nodule
Patient is in need of oxygen at 2 liters/minute via nasal cannula continuously due to pulse oximetry of 87% on room air at rest. Oxygen will help to improve hypoxemia. Patient is mobile within the home. DuoNeb therapy has been tried and is
ineffective in treating hypoxemia related symptoms. Oxygen is needed to improve symptoms.
CXR: Extensive diffuse interstitial markings throughout both lung espinoza more prominent on right than left consistent with interstitial fibrosis. Superimposed acute inflammatory changes not excluded
mild hyperkalemia
resolved
Mild hyponatremia
monitor
#GERD
-Was on prior Prilosec
Moderate Protein Calorie Malnutrition
Glaucoma
Continue latanoprost
DVT prophylaxis
Subcu Lovenox
DNR per patient with son at bedside on admission
Anticipated Discharge: Today
Subjective/Interval History
-
Date of Service: December 20, 2023
Denies pain
Objective Data
-
Labs:
Laboratory Results
12/20/23
07:05
WBC 12.0 H
Hgb 12.9
Hct 40.3
Plt Count 373
Sodium 131 L
Potassium 4.6
Chloride 95 L
Carbon Dioxide 28
BUN 15
Creatinine 0.6
Glucose 108 H
Calcium 9.7
Vital Signs:
Vital Signs
Temp Pulse Resp BP Pulse Ox
97.4 F 60 18 162/74 94
12/20/23 07:55 12/20/23 08:20 12/20/23 08:20 12/20/23 07:55 12/20/23 08:20
I&O
12/19/23 12/20/23 12/21/23
06:59 06:59 06:59
Intake Total 540 / 540 1240 / 1240
Balance 540 / 540 1240 / 1240
--- NOTE | 2023-12-20 11:08 | W.DCSUMMARY ---
Discharge Summary
Discharge Data
Date of Admission: 12/15/23
Date of Discharge: 12/20/23
-
Pending Results: No
Hospital Course
83-year-old female with past medical history of bronchiectasis, COPD, GERD, glaucoma came to the hospital with acute hypoxic respiratory insufficiency which was likely thought was secondary to COPD and bronchiectasis. Patient was seen by pulmonary
throughout hospitalization. Given her symptoms pulmonary recommended patient to be treated with antibiotics for possible community-acquired pneumonia. Patient continued to require oxygenation throughout hospitalization. Upon home O2 evaluation
she required 2 L of nasal cannula. She was initially treated with IV steroids which were later transitioned to prednisone with taper on discharge. Since her symptoms continue to improve, she was then discharged home with instructions to follow-up
with all her physicians outpatient. She was instructed to follow-up closely with her french teacher at [place] outpatient.
Discharge Plan
-
Patient Disposition: Home (Routine Discharge)
Discharge Diagnosis/Procedures: Acute on chronic COPD exacerbation
Bronchiectasis
Suspected community-acquired pneumonia
Acute hypoxic respiratory insufficiency
Condition: Good
Diet: As tolerated
Activity: As tolerated
Driving Restrictions: As prior to admission
Bathing Restrictions: None
Activity Restrictions/Additional Instructions:
Follow-up with the french teacher at [place] outpatient
Referrals:
Rima Norman MD [Family Provider] - in less than 1 week
Prescriptions:
New
albuterol sulfate 90 mcg/actuation HFA aerosol inhaler
2 puff inhalation Q6H PRN (Reason: shortness of breath or wheezing) Qty: 8.5 0RF
prednisone 10 mg Tablet
See Rx Instructions .ROUTE .COMPLEX Qty: 30 0RF
Rx Instructions:
Take By Mouth:
40 mg daily x3 days, 30 mg daily x3 days,
20 mg daily x3 days, 10 mg daily x3 days.
cefdinir 300 mg capsule
300 mg PO BID Qty: 6 0RF
azithromycin 250 mg tablet
250 mg PO DAILY Qty: 3 0RF
Continued
latanoprost 0.005 % Drops
1 drp BOTH EYES BID
fluticasone propion-salmeterol [Wixela Inhub] 100-50 mcg/dose Blister With Device
1 inh INHALATION R BID
Discharge Orders:
Discharge Patient (As Directed); Ordered 12/20/23
Ordered By: Vincenzo Arce
Discharge Date and Time
Discharge Date/Time: 12/20/23 15:38
Print Language: SAMOAN
--- NOTE | 2023-12-20 11:23 | CM ---
Shaye is being discharged to [place] today. Portable O2 is in her room for transfer; Rx for PT/OT will be sent with records. Her nephew will be providing transport.
Report: [phone]
--- NOTE | 2023-12-20 11:38 | PTCARENOTE ---
Report called to Cydney Moscoso RN. Patient's nephew will transport patient. Patient has oxygen at bedside for transport/home usage.
--- NOTE | 2023-12-20 12:16 | PTCARENOTE ---
Peripheral IV removed and questions posed by patient answered. Awaiting an arrival time of nephew.
--- NOTE | 2023-12-20 14:29 | CM ---
Shaye is being discharged to [facility] today.
Her nephew, Leonardo Cramer, will be coming to pick her up at the [facility] exit; he will call the unit when he arrives and Shaye will be brought down to his car with the portable oxygen.
Report: [phone]
--- NOTE | 2023-12-20 16:29 | PTCARENOTE ---
Patient left via wheelchair with staff escort. Nephew is transport home.
== END 2023-12-20 15:38 | disposition home or self-care (01) | DRG 190 ==
LOC: 4 EAST ACU 20:38
PROVIDERS: Clinical Nurse Specialist Family Health; Internal Medicine Critical Care Medicine; Nurse Practitioner; ADMITTING PHYSICIAN Hospitalist; ATTENDING PHYSICIAN Internal Medicine; CONSULT PHYSICIAN Internal Medicine Pulmonary Disease; EMERGENCY PHYSICIAN Emergency Medicine; FAMILY PHYSICIAN Family Medicine
DX: J44.1 Chronic obstructive pulmonary disease with (acute) exacerbation (principal); J18.9 Pneumonia, unspecified organism; J96.01 Acute respiratory failure with hypoxia; E44.0 Moderate protein-calorie malnutrition; Z68.1 Body mass index [BMI] 19.9 or less, adult; E87.1 Hypo-osmolality and hyponatremia; J98.11 Atelectasis; J47.9 Bronchiectasis, uncomplicated; E87.5 Hyperkalemia; Z66 Do not resuscitate
CPT/HCPCS: 71046; 71250; 80048; 80053; 81003; 82962; 83880; 84145; 85025; 85027; 87040; 87449; 87811; 87899; 93005; 94640; 96374; 97116; 97162; 97166; 97530; 97535; 99285

== ENCOUNTER 2024-01-15 18:36 | Emergency (ER) | payer MEDICARE, OTHER, SELFPAY ==
[2024-01-15 18:40] VITALS: BP 142/74
[2024-01-15 18:47] VITALS: BMI 18.9
[2024-01-15 18:54] LABS: % Basophils 0.6 % (0-2); % Eosinophils 2.4 % (0-6); % Immature Granulocytes 0.4 % (0-0.5); % Lymphocytes 15.1 % (20.5-51.1); % Neutrophils 68.5 % (42.2-75.2); Absolute Basophils 0.1 10^3/uL (0-0.2); Absolute Eosinophils 0.2 10^3/uL (0-0.7); Absolute Lymphocytes 1.4 10^3/uL (1.2-3.4); Absolute Monocytes 1.2 10^3/uL (0.1-0.6); Absolute Neutrophils 6.4 10^3/uL (1.4-6.5); Hematocrit 35.1 % (37.0-47.0); Hemoglobin 11.8 g/dL (12.0-16.0); Mean Corp Hgb Conc. 33.6 g/dL (33.0-37.0); Mean Corpuscular Hgb 28.3 pg (27.0-31.0); Mean Corpuscular Volume 84.2 fL (81.0-99.0); Mean Platelet Volume 8.7 fL (7.4-10.4); Nucleated Red Blood Cells % 0 %; Platelet Count 369 10^3/uL (130-400); Red Blood Cell Count 4.17 10^6/uL (4.20-5.40); Red Cell Dist. Width 13.4 % (11.5-14.5); White Blood Cell Count 9.3 10^3/uL (4.8-10.8)
[2024-01-15 19:00] VITALS: BP 144/85
[2024-01-15 19:13] LABS: INR 0.93; PT 12.5 Sec (11.4-14.6)
[2024-01-15 19:14] LABS: ALT (SGPT) 14 U/L (0-35); AST (SGOT) 24 U/L (14-36); Albumin 3.7 g/dl (3.5-5.0); Alkaline Phosphatase 83 U/L (38-126); Blood Urea Nitrogen 11 mg/dl (7-17); Calcium 9.5 mg/dl (8.4-10.2); Carbon Dioxide 27 mmol/L (22-30); Chloride 95 mmol/L (98-107); Estimated Creatinine Clearance 53 ml/min; Glucose 79 mg/dl (70-99); Potassium 4.6 mmol/L (3.5-5.1); Sodium 129 mmol/L (135-145); Total Bilirubin 0.3 mg/dl (0.2-1.3); Total Protein 6.9 g/dl (6.3-8.2); eGFR > 60.00
[2024-01-15 19:24] LABS: Troponin I < 0.012 ng/ml
[2024-01-15 20:00] VITALS: BP 121/60
--- NOTE | 2024-01-15 21:28 | ED.GENMED ---
History of Present Illness
General
Chief Complaint: Cardiac Symptoms
Time Seen by Provider: 01/15/24 18:58
History of Present Illness
History of Present Illness:
83-year-old female with history of COPD presents to the emergency department patient had an episode of chest discomfort that began at approximately 1800 today. After being evaluated by nursing facility staff was called. On arrival EMS reported a
heart rate of nearly 200 and gave 12.5 Cardizem with improvement in symptoms. Patient notes that her chest pain had resolved prior to administration of this medication. She currently feels well and has no complaints. She has no known history of
cardiac dysrhythmia
Past History
Past History
ED Past Medical History: COPD, GERD and Other (Glaucoma)
ED Past Surgical History: Other (abdominal hernia repair)
Social History
Tobacco: Non-smoker
Alcohol: None
Drug: None
Living: assisted living
Review of Systems
Review of Systems
Allergies reviewed?: Yes
All Other Systems: ROS reviewed and negative except as documented in HPI and ROS
Phy Exam
Physical Exam
Physical Exam:
GEN: Well appearing, NAD, WDWN
Eyes: PERRLA, EOMs intact, no scleral icterus
HENT: NCAT, oral mucosa moist
Lungs: Scant inspiratory wheeze heard throughout, wearing supplemental oxygen chronically
Cardiac: RRR, no M/R/G, no peripheral edema. Radial pulses 2+ bilat
Abdomen: S, NT, ND, NABS, no masses or hepatosplenomegaly
Neuro: AO x 3
MSK: No gross deformity or ecchymosis. No edema. No digital clubbing
Skin: No rashes, petechiae. Normal color, no pallor or jaundice.
Psych: Calm, cooperative, proper hygiene
Course
Orders/Labs/Results
Orders:
Orders
01/15/24 18:39
Electrocardiogram (*1) Urgent
Reason for Study: Chest Pain
EKG- Treatment ONCE
01/15/24 18:46
Complete Blood Count/With Diff Urgent
Comprehensive Metabolic Panel Urgent
Prothrombin Time Urgent
Troponin I Urgent
Abnormal Lab Results
01/15/24
18:46
RBC 4.17 L 10^6/uL
(4.20-5.40)
Hgb 11.8 L g/dL
(12.0-16.0)
Hct 35.1 L %
(37.0-47.0)
Absolute Monos (auto) 1.2 H 10^3/uL
(0.1-0.6)
Lymphocytes % 15.1 L %
(20.5-51.1)
Monocytes % 13.0 H %
(1.7-9.3)
Sodium 129 L mmol/L
(135-145)
Chloride 95 L mmol/L
(98-107)
01/15/24 18:46
01/15/24 18:46
Vital Signs
Initial and Last Documented VS:
Initial Vital Signs
Temp Pulse Resp BP Pulse Ox
98.3 F 84 18 142/74 92
01/15/24 18:40 01/15/24 18:40 01/15/24 18:40 01/15/24 18:40 01/15/24 18:40
Last Documented Vital Signs
Temp Pulse Resp BP Pulse Ox
98.3 F 79 20 132/66 94
01/15/24 18:40 01/15/24 22:15 01/15/24 22:15 01/15/24 22:00 01/15/24 19:45
MDM/Problems Addressed
MDM/Problems Addressed:
I reviewed prehospital rhythm strips and EKG which showed no evidence for tacky dysrhythmia. Further assessment this was the computer interpretation and has a initial EKG obtained in this emergency department suggested a heart rate of 185 however
clearly it was detected QRS complexes and T waves as separate QRS complexes. Heart rate remained stable and she was in normal sinus rhythm throughout the duration of the emergency department stay. Do not feel that there is indication for addition
of rate control meds or anticoagulants as
No evidence for A-fib. Labs imaging the patient is symptomatic and suitable for discharge home
*Critical Care Note
Total Time (30-74mins, 75-104mins- exclusive of procedures): Not Applicable
ED Attending Note
-
Portions of this chart may have been created with voice recognition software.� Occasional wrong word or��sound alike� substitutions may have occurred due to the inherent limitations of voice recognition software.
Discharge Plan
Departure
Patient Disposition: Home (Routine Discharge)
Date of Disposition: 01/15/24
Time of Disposition: 21:28
Admit to: Med/Surg
Patient with high blood pressure during this ER visit?: No
Discharge Problem:
Heart palpitations
Instructions: Chest Pain (DC)
Prescriptions:
No Action
latanoprost 0.005 % Drops
1 drp BOTH EYES BID
fluticasone propion-salmeterol [Wixela Inhub] 100-50 mcg/dose Blister With Device
1 inh INHALATION R BID
albuterol sulfate 90 mcg/actuation HFA aerosol inhaler
2 puff inhalation Q6H PRN (Reason: shortness of breath or wheezing) Qty: 8.5 0RF
prednisone 10 mg Tablet
See Rx Instructions .ROUTE .COMPLEX Qty: 30 0RF
Rx Instructions:
Take By Mouth:
40 mg daily x3 days, 30 mg daily x3 days,
20 mg daily x3 days, 10 mg daily x3 days.
cefdinir 300 mg capsule
300 mg PO BID Qty: 6 0RF
azithromycin 250 mg tablet
250 mg PO DAILY Qty: 3 0RF
Referrals:
Rima Norman MD [Family Provider] -
Interventions
Interventions:
*Risk Screen - Suicide Last Done: 01/15/24 18:40
*General Assessment Last Done: 01/15/24 18:40
*Neglect/Abuse Screening Last Done: 01/15/24 18:40
ED- Fall Risk Assessment Last Done: 01/15/24 18:40
ED- Pulmonary Assessment Last Done: 01/15/24 18:40
ED- Cardiac Assessment Last Done: 01/15/24 18:40
Discharge Date and Time
Print Language: YAKUT
[2024-01-15 22:00] VITALS: BP 132/66
== END 2024-01-15 23:58 | disposition home or self-care (01) ==
LOC: EMR 18:36
PROVIDERS: Emergency Medicine; EMERGENCY PHYSICIAN Emergency Medicine; FAMILY PHYSICIAN Family Medicine
DX: R00.2 Palpitations (principal); J44.9 Chronic obstructive pulmonary disease, unspecified
CPT/HCPCS: 99284; 80053; 84484; 85025; 85610; 93005

== ENCOUNTER 2024-04-28 19:08 | Inpatient (IN) | payer MEDICARE, OTHER, SELFPAY ==
[2024-04-28] VITALS (12 sets, daily range): BP systolic 121–171; BP diastolic 50–137
[2024-04-28 14:07] LABS: % Basophils 0.8 % (0-2); % Eosinophils 1.6 % (0-6); % Immature Granulocytes 0.3 % (0-0.5); % Lymphocytes 12.3 % (20.5-51.1); % Monocytes 8.8 % (1.7-9.3); % Neutrophils 76.2 % (42.2-75.2); Absolute Basophils 0.1 10^3/uL (0-0.2); Absolute Eosinophils 0.2 10^3/uL (0-0.7); Absolute Lymphocytes 1.1 10^3/uL (1.2-3.4); Absolute Monocytes 0.8 10^3/uL (0.1-0.6); Absolute Neutrophils 7.1 10^3/uL (1.4-6.5); Hematocrit 36.5 % (37.0-47.0); Hemoglobin 11.8 g/dL (12.0-16.0); Mean Corp Hgb Conc. 32.3 g/dL (33.0-37.0); Mean Corpuscular Hgb 26.7 pg (27.0-31.0); Mean Corpuscular Volume 82.6 fL (81.0-99.0); Mean Platelet Volume 9.1 fL (7.4-10.4); Nucleated Red Blood Cells % 0 %; Platelet Count 479 10^3/uL (130-400); Red Blood Cell Count 4.42 10^6/uL (4.20-5.40); Red Cell Dist. Width 13.6 % (11.5-14.5); White Blood Cell Count 9.3 10^3/uL (4.8-10.8)
[2024-04-28 14:15] LABS: ALT (SGPT) 13 U/L (0-35); AST (SGOT) 21 U/L (14-36); Albumin 3.6 g/dl (3.5-5.0); Alkaline Phosphatase 100 U/L (38-126); Blood Urea Nitrogen 10 mg/dl (7-17); Calcium 9.6 mg/dl (8.4-10.2); Carbon Dioxide 30 mmol/L (22-30); Chloride 96 mmol/L (98-107); Glucose 97 mg/dl (70-99); Potassium 4.2 mmol/L (3.5-5.1); Sodium 135 mmol/L (135-145); Total Bilirubin 0.4 mg/dl (0.2-1.3); Total Protein 7.2 g/dl (6.3-8.2); eGFR > 60.00
[2024-04-28 14:20] LABS: COVID-19 Antigen Negative (Negative)
--- NOTE | 2024-04-28 14:53 | ED.GENMED ---
History of Present Illness
General
Chief Complaint: Breathing Problem
Source: patient
Exam Limitations: none
Time Seen by Provider: 04/28/24 13:44
Nursing documentation reviewed up to this point in time: agreed with
History of Present Illness
History of Present Illness:
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 Patient otherwise has no
complaints. Denies fever. Denies coughing. Denies nausea or vomiting. Denies diarrhea. Denies recent change in medications or diet. Per nephew, at bedside, patient has had decreased appetite recently, including missing dinner last night, which
he feels may be contributing to her symptoms.
Past History
Past History
ED Past Medical History: COPD, GERD and Other (Glaucoma)
ED Past Surgical History: Other (abdominal hernia repair)
Social History
Tobacco: Non-smoker
Alcohol: None
Drug: None
Living: assisted living
Review of Systems
Review of Systems
Allergies reviewed?: Yes
All Other Systems: ROS reviewed and negative except as documented in HPI and ROS
Constitutional: Reports no symptoms
EENT: Reports no symptoms
Respiratory: Reports no symptoms; Denies cough or trouble breathing
Cardiac: Reports no symptoms; Denies chest pain
ABD/GI: Reports no symptoms
: Reports no symptoms
Musculoskeletal: Reports no symptoms
Skin: Reports no symptoms
Neurological: Reports no symptoms; Denies dizzy, headache or weakness
Phy Exam
Physical Exam
Physical Exam:
Physical Exam
General: no apparent distress, not acutely ill. afebrile. thin, weak appearing
Head: nc/at. eomi
Neck: supple. no meningeal signs.
Heart: s1/s2 regular rate and rhythm, systolic ejection murmur. equal radial pulses.
Lungs: no acute respiratory distress. clear bilaterally
Abdomen: normal bowel sounds. not tender.
Neuro: alert and oriented. no focal neurological deficits
Skin: no rash
Psychiatric: well kept. interactive and cooperative
Extremities: no edema. no calf tenderness.
Scores
Heart Failure Risk
Heart Failure Risk Score: Not Applicable
Sepsis
Sepsis Screening
Sepsis Assessment: Sepsis Ruled Out
Sepsis Screen
Sepsis Screen: Sepsis Ruled Out
Date: 04/28/24
Time: 20:17
Course
Orders/Labs/Results
Orders:
Orders
04/28/24 13:43
COVID-19 Antigen Urgent
Source: Nasal Swab
Complete Blood Count/With Diff Urgent
Comprehensive Metabolic Panel Urgent
INF RAPID [Influenza A+B Rapid Molecular] Urgent
TK Source: Nasal Swab
Specimen Description:
04/28/24 13:45
D-Dimer Urgent
04/28/24 14:34
Straight cath- Treatment ONCE
04/28/24 14:36
CR Chest - 2 Views Urgent
Comment:
Reason For Exam: sob
04/28/24 14:50
Urinalysis Reflex To Culture Urgent
Date Specimen was Collected: 04/28/24
Time Specimen was Collected: 14:48
04/28/24 16:20
CT Chest Pe Study Urgent
Comment:
Reason For Exam: hypoxia with elevated d-dimer
04/28/24 16:25
CT Head W/o Iv Contrast Urgent
Comment:
Reason For Exam: mental status change
04/28/24 17:24
Azithromycin [Zithromax] 500 mg PO NOW STA
Prednisone [Deltasone] 50 mg PO NOW STA
04/28/24 18:06
Azithromycin 500 mg/250 ml [Zithromax Infusion] 500 mg in 250 ml IV NOW
Dexamethasone Sod Phosphate [Decadron] 6 mg IV NOW STA
04/28/24 18:36
Admit/Transfer Patient As Directed
Co-Sign Provider:
Level of Care: Inpatient admission
Assign to:: Telemetry
Physician / Group: Early
Diagnosis: Hypoxia, Worsening ILD
Reason for Telemetry: Arrhythmia
Date to Stop Telemetry: 05/01/24
Time to Stop Telemetry: 11:00
Reason for Hospitalization: Oxygen, Pulmonary Consult
Expected length of stay greater than two midnights?: Yes
ELOS- Estimated Length of Stay in days: 3
I certify the patient meets the requirements for IP care: Yes
PRN Pain Medication Management As Directed
May give lesser potent ordered pain med per pt: Yes
preference::
Protocol:: Medication orders for pain may be administered in a
manner that supports deferring to patient preference
when the pt is:
- Requesting an ordered lesser potent pain medication.
Least to most potent pain medications are defined
as: acetaminophen < NSAID < tramadol < opioids
(morphine, oxycodone, hydromorphone).
- Requesting a lesser dose of the same medication IF
ORDERED.
- Requesting a less intrusive route of administration
if both routes are prescribed by the provider (PO <
IV).
04/28/24 18:39
Code Status As Directed
Resuscitation Status: Do not resuscitate
Reached after discussion with pt or family/Healthcare POA: Yes
DNR Bracelet Application ONCE
04/28/24 19:38
Procalcitonin Urgent
PCT Algorithmm Indication: Respiratory
05/01/24 11:00
DC Protocol for Telemetry ONCE
Abnormal Lab Results
04/28/24 04/28/24
13:43 13:45
Hgb 11.8 L g/dL
(12.0-16.0)
Hct 36.5 L %
(37.0-47.0)
MCH 26.7 L pg
(27.0-31.0)
MCHC 32.3 L g/dL
(33.0-37.0)
Plt Count 479 H 10^3/uL
(130-400)
Absolute Neuts (auto) 7.1 H 10^3/uL
(1.4-6.5)
Absolute Lymphs (auto) 1.1 L 10^3/uL
(1.2-3.4)
Absolute Monos (auto) 0.8 H 10^3/uL
(0.1-0.6)
Neutrophils % 76.2 H %
(42.2-75.2)
Lymphocytes % 12.3 L %
(20.5-51.1)
D-Dimer 1.25 H ug/mlFEU
(0.00-0.50)
Chloride 96 L mmol/L
(98-107)
04/28/24 13:43
04/28/24 13:43
Vital Signs
Initial and Last Documented VS:
Initial Vital Signs
BP Pulse Ox
154/79 90
04/28/24 13:18 04/28/24 13:18
Last Documented Vital Signs
Temp Pulse Resp BP Pulse Ox
97.5 F 86 40 153/72 95
04/28/24 13:22 04/28/24 20:00 04/28/24 20:00 04/28/24 20:00 04/28/24 20:00
MDM/Problems Addressed
MDM/Problems Addressed:
Secondary to increased oxygen requirement along with elevated D-dimer, decision made to obtain CT chest angiogram.
CTA chest report reviewed and discussed with patient and her nephew.
Patient will be admitted for IV antibiotics, IV Zithromax, along with IV steroids. Patient otherwise remains afebrile and nontoxic-appearing.
*Critical Care Note
Total Time (30-74mins, 75-104mins- exclusive of procedures): Not Applicable
ED Attending Note
-
Portions of this chart may have been created with voice recognition software.� Occasional wrong word or��sound alike� substitutions may have occurred due to the inherent limitations of voice recognition software.
Discharge Plan
Departure
Patient Disposition: Admit
Date of Disposition: 04/28/24
Time of Disposition: 18:10
Admit to: Telemetry
Presentation/result/management discussed w/ accepting MD/DO: Hospitalist
Discharge Problem:
Hypoxia, Atypical pneumonia
Interventions
Interventions:
*Risk Screen - Suicide Last Done: 04/28/24 13:28
*General Assessment Last Done: 04/28/24 13:26
*Neglect/Abuse Screening Last Done: 04/28/24 13:28
ED- Fall Risk Assessment Last Done: 04/28/24 19:00
*ED COVID-19 Vaccine History Last Done: 04/28/24 13:26
*Nursing Disposition Last Done: 04/28/24 20:16
ED- Cardiac Assessment Last Done: 04/28/24 15:16
ED- Pulmonary Assessment Last Done: 04/28/24 15:15
[2024-04-28 15:41] LABS: Urine Albumin Negative (Neg - Trace); Urine Bilirubin Negative (Negative); Urine Character Clear (Clear); Urine Color Yellow; Urine Glucose Negative (Negative); Urine Ketone Negative (Negative); Urine Leukocyte Negative (Negative); Urine Nitrite Negative (Negative); Urine Occult Blood Negative (Negative); Urine Specific Gravity 1.005 (<1.030); Urine Urobilinogen Negative (Neg - 1+)
[2024-04-28 15:56] LABS: D-Dimer 1.25 ug/mlFEU (0.00-0.50)
--- NOTE | 2024-04-28 18:41 | W.PN.UPDATE ---
Update Note
Progress Note Update
This note serves as an addendum to the H&P by turn out worker FELISA Capri MCKEON
HPI & PMHX
83[facility] O2 depedent COPD , HX MARITZA not on active Tx sent to ED for evaluation of desaturation
- requiring 5L via NC - typically on 2L NC O2
- reports intermittent moist cough
- Per nephew, at bedside - reports decreased appetite recently, including missing dinner last night
- followed by Pulm at [place]
- minimal and remote history of smoking (< 5 pack years and quit in her 20s).
VS: afebrile, tachypneic, POx 90 --> 93% on 4L
Gen: severy cachectic , wearing NC O2 at 4 L
HEENT: symmetric face , nl hearing, nl speech, mid line tougue
Neck: supple
Lungs: decreased AE both espinoza, no wheeze, occasional rhonchi
Cor: RRR . s1 S2. no murmur
Abdomen:
NIGHT TIME NANNY: AAO3 No pronator or arm drift. Strength 5/5 throughout.
MS: no edema
Psych: nl affect. nl mood
Laboratory Tests
01/15/24 04/28/24
18:46 13:43
WBC 9.3
Hgb 11.8 L
Plt Count 479 H
Chloride 96 L
Carbon Dioxide 27 30
Creatinine 0.6 0.6
eGFR > 60.00 > 60.00
NEG UA
HCT:
No acute intracranial abnormality noted
CXR:
Extensive bilateral chronic interstitial changes redemonstrated.
Possible superimposed left lower lobe pneumonia.
CTC PE study
1. No evidence of pulmonary embolism.
2. 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 Underlying chronic interstitial lung disease not excluded.
ASSESSMENT & PLAN
Acute on chr Hypoxemic RF
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
HX COPD on 2 L NC at home - Not bronchospastic
Suspected ILD ???
HX Glaucoma
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
- O2 support - titrate to keep POX > 93
- check PCT
- emepiric IV CFTZ and Azithromycin for MARITZA
- Production Engineer consult
- Pul consult
DVT Px: LMWH
DNR
IP TLM
--- NOTE | 2024-04-28 18:45 | HPS.HSE ---
Family Physician
-
Family Physician: Rima Norman MD
Chief Complaint
-
Hypoxia
History of Present Illness
Patient is an 84 y/o female past medical history of COPD, ILD, pulmonary MARITZA who presents with increased shortness of breath, and increased oxygen requirements. Patient was noted to have acute hypoxia at the assisted living facility today. Patient
reports some increased shortness of breath for the past few days. She reports cough that is productive of thick, mostly clear mucus. She denies fevers, sweats, or chills. She denies chest pain or lower extremity edema.
Medical History
Past Medical History
Past Medical History: Reports Other
Additional Past Medical History:
Chronic Hypoxic Respiratory Failure
Interstitial Lung Disease
COPD
Pulmonary MARITZA
Past Surgical History: Reports Other
Additional Past Surgical History:
Cataract extraction bilaterally with lens implants
Social History
Tobacco: Former Smoker
Personal: Single
Living: Other ([facility])
Employment: Retired
Family History
Family History: Other (Mother of CVA father of pulmonary issues)
Allergies / Home Medications
Allergies reflects when Allergies were last updated in [facility] app.
Home Medications with original date entered in [facility] app
Allergy/Medication List:
Allergies
Allergy/AdvReac Type Severity Reaction Status Date / Time
No Known Allergies Allergy Verified 01/15/24 18:39
Home Medications
fluticasone 100 mcg-salmeterol 50 mcg/dose blistr powdr for inhalation (Wixela Inhub) 1 inh inhalation R BID Lung/Breathing Issues 12/15/23
latanoprost 0.005 % eye drops 1 drp BOTH EYES BID Eye Condition 12/15/23
acetaminophen 325 mg tablet (Tylenol) 650 mg PO Q4HPRN PRN mild pain/temp >100 04/28/24
albuterol sulfate 90 mcg/actuation aerosol inhaler 2 puff inhalation R Q6HPRN PRN shortness of breath or wheezing 04/28/24
Review of Systems
-
A 12 point ROS was completed and negative except as noted: Yes
Constitutional: Denies Fever or Chills
Respiratory: Reports See HPI
Cardiac: Denies Chest Pain or Palpitations
Abdomen/GI: Denies Abdominal Pain, Nausea or Diarrhea
Physical Exam
Vital Signs
Vital Signs
Temp Pulse Resp BP Pulse Ox
97.5 F 83 35 170/67 88
04/28/24 13:22 04/28/24 18:00 04/28/24 17:05 04/28/24 18:00 04/28/24 17:05
Physical Exam
General: Comfortable and Conversant
HEENT: Anicteric, Moist mucous membranes and Oxygen (Nasal Cannula)
Respiratory: Rales (Diffuse, more prominent anteriorly) and Non Labored Respirations
Cardiac: S1/S2 and Regular Rhythm
GI: Soft and Non Tender
Musculoskeletal: No Clubbing, No Cyanosis and No Edema
Skin: Warm and Dry
Neuro: Awake, Alert, Nonfocal/grossly intact and Other (Very Forgetful)
Psych: Calm
Laboratory Results
-
04/28/24 13:43
04/28/24 13:43
Laboratory Results
Total Bilirubin 0.4 mg/dl (0.2-1.3) 04/28/24 13:43
AST 21 U/L (14-36) 04/28/24 13:43
ALT 13 U/L (0-35) 04/28/24 13:43
Alkaline Phosphatase 100 U/L (38-126) 04/28/24 13:43
Chest X-Ray:
Extensive bilateral chronic interstitial changes redemonstrated. Possible superimposed left lower lobe pneumonia.
Chest CT:
1. No evidence of pulmonary embolism.
2. 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 Underlying chronic interstitial lung disease not excluded.
Data Reviewed
-
Diagnostic Radiology: Report Reviewed by me
CT Scan: Report Reviewed by me
Lab Data: Labs Reviewed by me
Impression/Plan
-
Acute on Chronic Hypoxic Respiratory Failure
-Patient initially with increased oxygen requirements, now back on her usual 2L
Pulmonary MARITZA - Imaging raises concern for worsening infection and possible pneumonia
-Consult Pulmonary
-Continue ceftriaxone and azithromycin
-Add Mucinex
-Add Vest Therapy
-Check Procalcitonin
COPD / Interstitial Lung Disease, no acute exacerbation
-Transition to Pulmicort Neb and DuoNeb during hospitalization
Pulmonary Cachexia
-Consult Dietary
DVT proph: Lovenox
Code Status: DNR
[2024-04-28] MEDS: ZITHROMAX INFUSION 250 IV (19:41)
[2024-04-28] MEDS: DECADRON 6 MG IV (19:41)
[2024-04-28 20:22] LABS: Procalcitonin < 0.05 ng/ml (0.0-0.25)
--- NOTE | 2024-04-28 20:35 | PTCARENOTE ---
Pt arrived from ED via stretcher and was pulled over to bed. Pt is AAOx1, VSS sating 97% on 2L NC, and w/o complaints of pain. Pt is resting comfortably w/ call benson within reach.
[2024-04-28] MEDS: DUONEB 3 ML INH (21:10)
[2024-04-28] MEDS: PULMICORT 0.5 MG INH (21:10)
[2024-04-28] MEDS: ROCEPHIN 1000 MG IV (21:50)
[2024-04-28] MEDS: STERILE WATER FOR INJECTION 10 ML IV (21:50)
[2024-04-28] MEDS: MUCINEX 600 MG PO (21:54)
[2024-04-29 03:32] VITALS: BP 133/80
[2024-04-29 07:25] VITALS: BP 155/82
[2024-04-29] MEDS: PULMICORT 0.5 MG INH (07:33)
[2024-04-29] MEDS: DUONEB 3 ML INH (07:33)
[2024-04-29 08:10] LABS: Hematocrit 38.5 % (37.0-47.0); Hemoglobin 12.6 g/dL (12.0-16.0); Mean Corp Hgb Conc. 32.7 g/dL (33.0-37.0); Mean Corpuscular Hgb 27.6 pg (27.0-31.0); Mean Corpuscular Volume 84.2 fL (81.0-99.0); Mean Platelet Volume 9.3 fL (7.4-10.4); Platelet Count 483 10^3/uL (130-400); Red Blood Cell Count 4.57 10^6/uL (4.20-5.40); Red Cell Dist. Width 13.5 % (11.5-14.5); White Blood Cell Count 5.2 10^3/uL (4.8-10.8)
[2024-04-29] MEDS: MUCINEX PO (08:35)
[2024-04-29 08:47] LABS: Blood Urea Nitrogen 12 mg/dl (7-17); Calcium 9.5 mg/dl (8.4-10.2); Carbon Dioxide 26 mmol/L (22-30); Chloride 97 mmol/L (98-107); Estimated Creatinine Clearance 45 ml/min; Glucose 147 mg/dl (70-99); Potassium 4.6 mmol/L (3.5-5.1); Sodium 137 mmol/L (135-145); eGFR > 60.00
[2024-04-29] MEDS: MUCINEX 600 MG PO (09:36)
--- NOTE | 2024-04-29 09:53 | CON.PUL ---
Consultation
Consultation Request
Date/Time Consultation Requested: 04/29/24
Date/Time Consultation Performed: 04/29/24
Performing Provider: Tre
Reason for Consultation: Hypoxia
Medical History
-
History of Present Illness:
Patient is an 84-year-old female, with history of COPD/bronchiectasis, NTM/MARITZA infection, former tobacco smoker, who presents with SOB from [place]. Patient is usually on 2L at home, has been desaturating per facility despite baseline use, placed on 5L
in ER. She was recently admitted in November for hypoxemia. CT chest was obtained today showing diffuse bronchiectasis mainly in the RUL, RML, lingula and lower lobes with tree-in-bud nodular opacities and small patchy opacities predominantly in the
lower lobes, worsened compared to prior scan. She follows with pulmonary at [facility] (Dr Jeong) and son reports that she is aware she has serious lung disease, and want conservative treatment. Was last seen in their office 3 weeks prior.
Past Medical History
Past Medical History: Other (see list below)
Social History
Tobacco: Former Smoker
Alcohol: None
Drug: None
Family History
Family History: Reviewed & Not Pertinent
Allergies / Home Medications
Allergies
Allergy/AdvReac Type Severity Reaction Status Date / Time
No Known Allergies Allergy Verified 01/15/24 18:39
Home Medications
�Medication �Instructions �Recorded �Confirmed �Last Taken �Type
fluticasone 100 mcg-salmeterol 50 1 inh inhalation R BID 12/15/23 04/28/24 Unknown History
mcg/dose blistr powdr for Lung/Breathing Issues
inhalation (Wixela Inhub)
latanoprost 0.005 % eye drops 1 drp BOTH EYES BID Eye Condition 12/15/23 04/28/24 Unknown History
acetaminophen 325 mg tablet 650 mg PO Q4HPRN PRN mild 04/28/24 04/28/24 Unknown History
(Tylenol) pain/temp >100
albuterol sulfate 90 mcg/actuation 2 puff inhalation R Q6HPRN PRN 04/28/24 04/28/24 Unknown History
aerosol inhaler shortness of breath or wheezing
Review of Systems
-
Unable to Obtain full review of systems at this time due to: Dementia
Vitals / Labs / Diagnostic Testing
Vital Signs
Temp Pulse Resp BP Pulse Ox
97.8 F 104 16 155/82 96
04/29/24 07:25 04/29/24 07:41 04/29/24 07:41 04/29/24 07:25 04/29/24 07:41
Lab Data
04/29/24 07:39
04/29/24 07:39
Microbiology
04/28/24 13:43 Nasal Swab Influenza Types A & B (MARITZA) - Final
Negative for Influenza A & B, NAAT
Negative results must be combined with clinical observations
and patient history.
Nucleic Acid Amplification test (NAAT)performed on the
[employer] NOW platform.
Diagnostic Testing:
Physical Exam
-
HEENT: Normocephalic, Anicteric and Moist Mucous Membranes
Cardiovascular: S1/S2 and Regular Rhythm
Respiratory: Rales and Non-Labored Respirations
GI: Soft, Non Distended and Non Tender
Neurology: Awake, Alert and Oriented (to self)
Skin: Warm and Dry
General: Comfortable and Other (NAD, thin appearing)
Assessment
-
Patient is an 84-year-old female, with history of COPD/bronchiectasis, NTM/MARITZA infection, former tobacco smoker, who [place] with SOB from [place]. Patient is usually on 2L at home, has been desaturating per facility despite baseline use, placed on 5L
in ER. She was recently admitted in November for hypoxemia. CT chest was obtained today showing diffuse bronchiectasis mainly in the RUL, RML, lingula and lower lobes with tree-in-bud nodular opacities and small patchy opacities predominantly in the
lower lobes, worsened compared to prior scan. We are consulted for eval.
Worsening overall lung disease on CT/Abnormal CT scan
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
Acute on chronic respiratory failure with hypoxia due to above
Hyperglycemia
Pulmonary Cachexia
Chronic conditions FRENCH BINDER:
History of COPD, follows at [facility]
Severe restrictive lung disease (FVC: 36% / 0.85 L via spirometry from September 2022)
Bronchiectasis/TIB opacities
Hx of pulmonary NTM/MARITZA
Former tobacco use disorder (1 PPD)
GERD
Glaucoma
Former tobacco use
Diverticulosis
Internal hemorrhoids
Left Achilles tendinitis
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
Vitamin D deficiency
Cataract extraction bilaterally with lens implants
Plan
Hypoxemia noted on arrival, placed on 5L NC
Baseline use of 2L at home
Wean as tolerated
Home O2 evaluation
Prior history of lung disease is noted including COPD/bronchiectasis/NTM
She follows with pulmonary at [facility] (Dr Jeong) and son reports that she is aware she has serious lung disease, and want conservative treatment.
Was last seen in their office 3 weeks prior.
Recurrent admissions is very likely, this was discussed with her son today
CXR/CT obtained indicating overall worsening disease
Unclear if she has been treated for NTM in past, she certainly could not tolerate now
COPD, FEV1 37-40% on PFTs from [facility], TLC 36% with severe restriction, severe diffusion impairment, DLCO 36%
Severe overall
Continue home inhalers, oral steroid course
No prior ECHOs for review
Can check proBNP to rule out superimposed fluid
Pulmonary Cachexia is noted as well
BMI 15
She has advancing dementia as well
She is currently DNR
Would be beneficial to discuss GOC/palliative care
Son is interested, placed referral to Dr Bliss as OP if this is desired by family
Discharge planning is noted per team
Diagnostic Data
CXR 04/28/24- Extensive bilateral chronic interstitial changes redemonstrated. Possible superimposed left lower lobe pneumonia.
CT CHEST 04/28/24- 1. No evidence of pulmonary embolism. 2. 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 Underlying chronic interstitial lung disease not excluded.
CT Chest without contrast 12-16-2023: Prominent interstitial markings widespread bilaterally most likely predominantly chronic including some areas of honeycombing and bronchiectasis. Some dependent subsegmental atelectasis in the right lung and some
nonspecific tree-in-bud opacities in the left lower lobe. Cannot exclude approximate 1 cm medial right breast nodule.
Outpatient Pulmonary medical records:
PFT 10/02/2022: FEV1/FVC: 78; post-BD FEV1: 0.70 L / 40% with +5% change with bronchodilator; Post-BD FVC: 0.86 L / 37% with +1 % change with BD; NYA30-91%: 51% that improved by +33% with BD; T%; VC: 36%; RV: 41%; DLCO: 36%; DLco/VA: 97%
6MWT 10/02/2022: Resting as able to: 93% with HR: 92, BP 146/79 with Mehran scale: 3. Jamshid SaO2 with walking was 91% with max HR 108. Patient walked total 950 feet with no limitations and tolerated well. No oxygen indicated.
CT Chest 12/2019 Impression: 1. Persistent traction bronchiectasis most obvious at the right middle lobe and lingula with additional scattered areas of bronchiectasis of both lungs, right greater than left. Appearance possible slight increase in
mucous plugging of some of the segmental dilated bronchi of the lower lobes.
2. Persistent reticular nodular tree-in-bud opacities of the lungs, right greater than left which can be seen with prior pulmonary infections including MARITZA and MAC.
3. Stable subpleural areas of consolidation of the right lung.
Reports and relevant images were personally reviewed.
Total time spent on this consultation __76__ includes review of history, physical exam, medications, laboratory data, personal review of imaging, extensive review of outpatient records, discussion with care team and respiratory therapy.
--- NOTE | 2024-04-29 10:11 | W.PN.HOSP.TC ---
Today's Communication/Plan
-
Pulmonary consult
Discharge
Assessment / Plan
Assessment / Plan
Gen-awake, alert, confused, NAD
HEENT-NC, AT, anicteric, clear oral mm
Neck-supple
CV-reg, no M, +S1/S2
Lungs-clear B/L
Abd-soft, NT, ND
Ext-no edema
Musculoskeletal-no cyanosis, clubbing
Skin-warm and dry
Neuro-grossly non-focal
Psych-calm, cooperative
Delirium - with underlying chronic cognitive impairment, dementia. Cognitive impairment confirmed with patient's nephew. Suspect delirium due to change in scenery, acute care hospitalization. She can tell me the day of the week but cannot tell me
its Halloween, the month, or the year. Cannot name the hospital. She believes she is in [place]. Anticipate improvement in delirium once discharged.
Acute on chronic hypoxic respiratory failure -transient hypoxia requiring 4 L of oxygen. Baseline uses 2 L. This morning she is back on 2 L. Doubt any clinically significant etiology for the transient hypoxia. CT chest without any acute changes.
Discontinue further antibiotics. Procalcitonin normal. Afebrile. White blood cell count normal.
History of pulmonary MARITZA -unclear if it was treated. Family does not know for sure. 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
COPD without exacerbation
ILD
Cataracts
Dementia -unknown type, likely Alzheimer's. Discussed goals of care with nephew, consider hospice on discharge. I encouraged him to speak with PCP.
Pulmonary cachexia -BMI 15. Suspect some degree of protein/calorie malnutrition, unknown severity.
DNR
Dispo - anticipate discharge back to [facility] living this afternoon. Case management aware. Family agrees. Updated nephew at the bedside.
32 minutes spent in discharge process.
Anticipated Discharge: Today
Subjective/Interval History
-
Date of Service: April 29, 2024
Patient seen and examined. Confused this morning. Not oriented to hospital or time. No specific complaints.
Objective Data
-
Labs:
Laboratory Results
04/29/24
07:39
WBC 5.2
Hgb 12.6
Hct 38.5
Plt Count 483 H
Sodium 137
Potassium 4.6
Chloride 97 L
Carbon Dioxide 26
BUN 12
Creatinine 0.6
Glucose 147 H
Calcium 9.5
Vital Signs:
Vital Signs
Temp Pulse Resp BP Pulse Ox
97.8 F 104 16 155/82 96
04/29/24 07:25 04/29/24 07:41 04/29/24 07:41 04/29/24 07:25 04/29/24 07:41
I&O
04/28/24 04/29/24 04/30/24
06:59 06:59 06:59
Intake Total 120 / 120
Balance 120 / 120
Review of Systems
-
Unable to obtain full review of systems at this time due to: Dementia
History Source: Patient
All other systems: Reviewed and negative
--- NOTE | 2024-04-29 10:28 | W.DS.TRANS ---
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
-
Discharge Instructions:
Discharge Diagnosis/Procedures Acute on chronic hypoxic respiratory failure,
delirium
Diet Regular
Activity As tolerated
Driving Restrictions No driving
Bathing Restrictions None
Instructions:
Stand-Alone Forms:
Changes to Home Medications: No
Discharge Medications:
DC Medications w/original date entered in [employer]
fluticasone 100 mcg-salmeterol 50 mcg/dose blistr powdr for inhalation (Wixela Inhub) 1 inh inhalation R BID Lung/Breathing Issues 12/15/23
latanoprost 0.005 % eye drops 1 drp BOTH EYES BID Eye Condition 12/15/23
acetaminophen 325 mg tablet (Tylenol) 650 mg PO Q4HPRN PRN mild pain/temp >100 04/28/24
albuterol sulfate 90 mcg/actuation aerosol inhaler 2 puff inhalation R Q6HPRN PRN shortness of breath or wheezing 04/28/24
guaifenesin 600 mg tablet, extended release 12 hr 600 mg PO Q12 #0 tabs 04/29/24
Home Medication Changes
Pending Results: No
[2024-04-29] MEDS: DUONEB INH (11:34)
[2024-04-29 11:42] VITALS: BP 126/69
--- NOTE | 2024-04-29 12:43 | CM ---
Addendum entered by Marylou Baez 04/29/24 13:16:
Shaye's nephew is going to get her portable O2 and clothing from [facility]. He will drive Shaye back to [facility].
[facility] Report: [phone]
[facility]
Original Note:
called [facility] and spoke to Yvonne Reid regarding Shaye's return today. Yvonne advised that [facility] RN will call to speak with RN to discuss oxygen needs. RNSylvia notified of same.
to follow up for transport arrangements.
== END 2024-04-29 14:35 | disposition home or self-care (01) | DRG 189 ==
LOC: 4 EAST ACU 19:08
PROVIDERS: Physician Assistant Medical; ADMITTING PHYSICIAN Internal Medicine; ATTENDING PHYSICIAN Hospitalist; CONSULT PHYSICIAN Internal Medicine; EMERGENCY PHYSICIAN Emergency Medicine; FAMILY PHYSICIAN Family Medicine
DX: J96.21 Acute and chronic respiratory failure with hypoxia (principal); E43 Unspecified severe protein-calorie malnutrition; Z68.1 Body mass index [BMI] 19.9 or less, adult; R64 Cachexia; J84.9 Interstitial pulmonary disease, unspecified; F05 Delirium due to known physiological condition; Z66 Do not resuscitate; K21.9 Gastro-esophageal reflux disease without esophagitis; R73.9 Hyperglycemia, unspecified; G30.9 Alzheimer's disease, unspecified; F02.80 Dementia in other diseases classified elsewhere, unspecified severity, without behavioral disturbance, psychotic disturbance, mood disturbance, and anxiety; E55.9 Vitamin D deficiency, unspecified; J47.9 Bronchiectasis, uncomplicated; Z99.81 Dependence on supplemental oxygen; Z87.891 Personal history of nicotine dependence; Z96.1 Presence of intraocular lens; Z79.899 Other long term (current) drug therapy
CPT/HCPCS: 70450; 71046; 71275; 80048; 80053; 81003; 84145; 85025; 85027; 85379; 87070; 87502; 87811; 94640; 96365; 96366; 96375; 99285; Q9967

== ENCOUNTER 2024-05-05 18:54 | Inpatient (IN) | payer MEDICARE, OTHER, SELFPAY ==
[2024-05-05] VITALS (10 sets, daily range): BP systolic 118–177; BP diastolic 63–108; BMI 15.5
--- NOTE | 2024-05-05 12:57 | ED.GENMED ---
History of Present Illness
General
Chief Complaint: Abdominal Pain
Source: patient, family and ambulance crew
Exam Limitations: none
Time Seen by Provider: 05/05/24 12:47
Nursing documentation reviewed up to this point in time: agreed with
History of Present Illness
History of Present Illness:
84-year-old female with a past medical history of dementia, COPD who presents to the emergency room from [facility] via EMS for evaluation of right-sided abdominal pain/lower chest pain. Of note patient was recently admitted to this hospital
04/28 until 04/29 for acute on chronic respiratory failure with hypoxia, atypical pneumonia. Patient is a poor historian due to her dementia�while she is alert and tries to answer questions she has poor recall and is very limited. She is not sure
when she started having pain. She cannot describe the pain very well. When asked where the pain is located she holds her right upper abdomen. She says it also hurts in the right flank. She is coughing in the room, unclear if this is acute or
chronic. Denies feeling short of breath. She denies feeling nauseated. According to EMS report complaining of right sided abdominal pain since this morning. She is apparently on 2 L of O2 normally.
Past History
Past History
ED Past Medical History: COPD, GERD and Other (Glaucoma)
ED Past Surgical History: Other (abdominal hernia repair)
Social History
Tobacco: Non-smoker
Alcohol: None
Drug: None
Living: assisted living
Review of Systems
Review of Systems
Unable to obtain full review of systems at this time due to: dementia
All Other Systems: Not applicable
Phy Exam
Physical Exam
Physical Exam:
General: Awake, alert, oriented x2; cachectic
Head: Normocephalic, atraumatic
Eyes: Conjunctiva normal
Throat: Airway intact, handling secretions
Neck: Trachea midline, supple without meningismus
Lungs: Scattered wheezing and frequent coughing; patient was brought in on room air, apparently is chronically on 2 L of oxygen and so on arrival she was hypoxic into the 80s was placed back on oxygen with appropriate response; she does have mild
tachypnea
Heart: Tachycardia with regular rhythm, no murmurs, gallops, or rubs
Abd: Soft, non distended, tender to palpation across the upper abdomen worse on the right side with no peritoneal signs
Neuro: No gross deficits
Skin: no rash
Extremities: No edema in extremities, warm and well-perfused
Scores
Heart Failure Risk
Heart Failure Risk Score: Not Applicable
Heart Score for Chest Pain Patients
STEMI patient?: Not applicable
Withdrawal Assessment of Alcohol
Withdrawal Assessment Completed?: Not applicable
Sepsis
Sepsis Screening
Sepsis Assessment: Sepsis
Sepsis Screening: Worsening O2 Saturation
Sepsis Screen
Sepsis Screen: Sepsis
Date: 05/05/24
Time: 17:00
Course
Orders/Labs/Results
Orders:
Orders
05/05/24 12:55
Electrocardiogram (*1) Urgent
Reason for Study: Abdominal Pain
EKG- Treatment ONCE
CR Chest Portable - 1 View Urgent
Comment:
Reason For Exam: right lower chest/upper abd pain
Reason Study Needs to be Portable: Unable to Transport
05/05/24 12:59
Complete Blood Count/With Diff Urgent
Comprehensive Metabolic Panel Urgent
Lipase Urgent
Troponin I Urgent
05/05/24 13:04
US Abdomen Complete/Upper Urgent
Comment:
Reason For Exam: RUQ abd pain
05/05/24 14:31
CT Pe/abd/pel W Urgent
Reason For Exam: right lower chest/upper abd pain
05/05/24 15:18
Urinalysis Reflex To Culture Urgent
Date Specimen was Collected: 05/05/24
Time Specimen was Collected: 15:16
05/05/24 16:54
Cefepime HCl [Maxipime] 1,000 mg IV NOW STA
05/05/24 16:55
Vancomycin 1 Gram/200 ml [Vancocin] 1 gram in 200 ml IV NOW
05/05/24 16:56
Ipratropium/Albuterol Sulfate [Duoneb] 3 ml INH R NOW STA
MethylPREDNISolone PF [Solu-Medrol Pf] 125 mg IV NOW STA
05/05/24 17:00
Lactate Level [Lactic Acid] Urgent
Blood Culture Q30M
TK Source: Blood/Venous
Specimen Description:
05/05/24 17:30
Blood Culture Q30M
TK Source: Blood/Venous
Specimen Description:
Abnormal Lab Results
05/05/24 05/05/24
12:59 15:18
WBC 16.1 H 10^3/uL
(4.8-10.8)
Hgb 11.8 L g/dL
(12.0-16.0)
Hct 35.7 L %
(37.0-47.0)
MCH 26.9 L pg
(27.0-31.0)
Plt Count 447 H 10^3/uL
(130-400)
Abs Immat Gran (auto) 0.1 H 10^3/uL
(0-0.05)
Absolute Neuts (auto) 13.2 H 10^3/uL
(1.4-6.5)
Absolute Lymphs (auto) 1.0 L 10^3/uL
(1.2-3.4)
Absolute Monos (auto) 1.7 H 10^3/uL
(0.1-0.6)
Neutrophils % 81.6 H %
(42.2-75.2)
Lymphocytes % 6.4 L %
(20.5-51.1)
Monocytes % 10.6 H %
(1.7-9.3)
Sodium 132 L mmol/L
(135-145)
Chloride 92 L mmol/L
(98-107)
Glucose 103 H mg/dl
(70-99)
Urine Ketones 1+ A
(Negative)
05/05/24 12:59
05/05/24 12:59
Vital Signs
Initial and Last Documented VS:
Initial Vital Signs
Pulse Resp BP Pulse Ox
103 19 162/95 85
05/05/24 12:50 05/05/24 12:50 05/05/24 12:50 05/05/24 12:50
Last Documented Vital Signs
Temp Pulse Resp BP Pulse Ox
36.9 C 101 23 154/64 91
05/05/24 12:51 05/05/24 16:30 05/05/24 16:17 05/05/24 16:16 05/05/24 16:30
MDM/Problems Addressed
Differential Diagnosis Includes:
Right lower lobe pneumonia, cholecystitis/cholelithiasis, pancreatitis, gastritis, appendicitis, PE
MDM/Problems Addressed:
84-year-old female presents to the emergency room for right sided abdominal pain apparently in the right upper abdomen. Hypertensive, tachycardic, tachypneic; also hypoxic on arrival but was not on her normal oxygen. Physical exam as above�notably
she is reproducibly tender in the upper abdomen. Will place an IV send labs including a CBC and a CMP, lipase. Check EKG and troponin. Check chest x-ray to evaluate for right lower pneumonia. Check upper abdominal ultrasound. With wheezing on
exam and hypoxia will treat with DuoNeb and steroid as well for component of COPD exacerbation. Monitor closely reassess after the above.
Labs reviewed: CBC shows leukocytosis to 16.1. CMP no clinically significant abnormalities. Troponin undetectable. LFTs and lipase normal. Urinalysis negative for infection. Upper abdominal ultrasound essentially normal. Chest x-ray showed
chronic changes but no acute disease. With significant leukocytosis, continued tachycardia and mild tachypnea and some increased oxygen requirement here (she is on 4 L nasal cannula) will send for a CTA to rule out PE and extends to the abdomen
pelvis to rule out intra-abdominal infection.
CTA shows no PE but does show what appears to be right pneumonia with pleural effusion. No acute intra-abdominal infection noted. Will plan to treat with antibiotics for pneumonia and admit for continued treatment. Case discussed with hospitalist.
Chronic conditions affecting care:
COPD
Acute Exacerbation and/or Progression of Chronic Illness:
Acute COPD managed as above
*Radiology
Radiology exam reviewed: radiology read reviewed
*Pulse Oximetry
Patient hypoxic: yes
*Critical Care Note
Total Time (30-74mins, 75-104mins- exclusive of procedures): Not Applicable
Data Reviewed
Review of Other/Old Records Reveals: Labs, Records and Discharge Summary
Source: patient, records, family and ambulance crew
Patient Management
Discussion with other providers: Hospitalist (Discussed with hospitalist)
Escalation/DeEscalation of care consider admission/obs:
Admission indicated
ED Attending Note
-
Portions of this chart may have been created with voice recognition software.� Occasional wrong word or��sound alike� substitutions may have occurred due to the inherent limitations of voice recognition software.
Discharge Plan
Departure
Patient Disposition: Admit
Date of Disposition: 05/05/24
Time of Disposition: 16:55
Admit to doctor: Timo
Presentation/result/management discussed w/ accepting MD/DO: Hospitalist
Discharge Problem:
Pneumonia, Acute and chronic respiratory failure
Prescriptions:
No Action
latanoprost 0.005 % Drops
1 drp BOTH EYES BID
fluticasone propion-salmeterol [Wixela Inhub] 100-50 mcg/dose Blister With Device
1 inh INHALATION R BID
acetaminophen [Tylenol] 325 mg Tablet
650 mg PO Q4HPRN PRN (Reason: mild pain)
albuterol sulfate 90 mcg/actuation HFA aerosol inhaler
2 puff inhalation R Q6HPRN PRN (Reason: shortness of breath or wheezing)
guaifenesin 600 mg tablet extended release 12hr
600 mg PO Q12H
Referrals:
Rima Norman MD [Family Provider] -
Interventions
Interventions:
*Risk Screen - Suicide Last Done: 05/05/24 12:51
*General Assessment Last Done: 05/05/24 12:51
*Neglect/Abuse Screening Last Done: 05/05/24 12:51
ED- Fall Risk Assessment Last Done: 05/05/24 12:51
*ED COVID-19 Vaccine History Last Done: 05/05/24 12:51
MZ-Bztlrm-Mwdvbznoed Assessment Last Done: 05/05/24 12:56
Discharge Date and Time
Print Language: WOLOF
[2024-05-05 13:07] LABS: % Basophils 0.4 % (0-2); % Eosinophils 0.6 % (0-6); % Immature Granulocytes 0.4 % (0-0.5); % Lymphocytes 6.4 % (20.5-51.1); % Monocytes 10.6 % (1.7-9.3); % Neutrophils 81.6 % (42.2-75.2); Absolute Basophils 0.1 10^3/uL (0-0.2); Absolute Eosinophils 0.1 10^3/uL (0-0.7); Absolute Immature Granulocytes 0.1 10^3/uL (0-0.05); Absolute Monocytes 1.7 10^3/uL (0.1-0.6); Absolute Neutrophils 13.2 10^3/uL (1.4-6.5); Hematocrit 35.7 % (37.0-47.0); Hemoglobin 11.8 g/dL (12.0-16.0); Mean Corp Hgb Conc. 33.1 g/dL (33.0-37.0); Mean Corpuscular Hgb 26.9 pg (27.0-31.0); Mean Corpuscular Volume 81.3 fL (81.0-99.0); Mean Platelet Volume 8.8 fL (7.4-10.4); Nucleated Red Blood Cells % 0 %; Platelet Count 447 10^3/uL (130-400); Red Blood Cell Count 4.39 10^6/uL (4.20-5.40); Red Cell Dist. Width 13.8 % (11.5-14.5); White Blood Cell Count 16.1 10^3/uL (4.8-10.8)
[2024-05-05 13:20] LABS: ALT (SGPT) 16 U/L (0-35); AST (SGOT) 19 U/L (14-36); Albumin 3.5 g/dl (3.5-5.0); Alkaline Phosphatase 101 U/L (38-126); Blood Urea Nitrogen 9 mg/dl (7-17); Calcium 9.2 mg/dl (8.4-10.2); Carbon Dioxide 29 mmol/L (22-30); Chloride 92 mmol/L (98-107); Glucose 103 mg/dl (70-99); Lipase 46 U/L (23-300); Potassium 4.3 mmol/L (3.5-5.1); Sodium 132 mmol/L (135-145); Total Bilirubin 0.8 mg/dl (0.2-1.3); Total Protein 7.1 g/dl (6.3-8.2); eGFR > 60.00
[2024-05-05 13:31] LABS: Troponin I < 0.012 ng/ml
[2024-05-05 15:38] LABS: Urine Albumin Trace (Neg - Trace); Urine Bilirubin Negative (Negative); Urine Character Clear (Clear); Urine Color Yellow; Urine Glucose Negative (Negative); Urine Ketone 1+ (Negative); Urine Leukocyte Negative (Negative); Urine Nitrite Negative (Negative); Urine Occult Blood Negative (Negative); Urine Urobilinogen Negative (Neg - 1+)
[2024-05-05] MEDS: DUONEB 3 ML INH (17:52)
[2024-05-05] MEDS: MAXIPIME 1000 MG IV (17:53)
[2024-05-05] MEDS: SOLU-MEDROL PF 125 MG IV (17:58)
[2024-05-05] MEDS: VANCOCIN 200 IV (17:59)
--- NOTE | 2024-05-05 18:43 | HPS.HSE ---
Addendum entered and electronically signed by Shaye Damian MD 05/05/24 19:57:
I personally performed a history and physical exam of the patient and discussed management with the resident. I reviewed the resident's note and agree with the documented findings and plan of care HPI/CC.
GENERAL: elderly, frail, cachectic, demented female in no apparent distress
HEENT: NC/AT 4L NC O2 in place
HEART: regular rate and rhythm, +S1, +S2
LUNGS : coarse crackles throughout anterior > posterior with faint wheezes throughout
ABDOM: soft, tender RUQ and over lower ribs, nondistended, + bowel sounds
EXT: no cyanosis, clubbing, or edema
NEUROLOGIC: grossly intact with apparent dementia
sepsis (POA) likely due to Pneumonia, CAP versus HAP (pt recently hospitalized) vs progressive MARITZA--Potential pneumonia seen on CT of the chest in the ED--admit--consult pulm, cont vanco/cefepime--await culture results--trend WBC (was on steroids
last admission), check and trend lactate level if elevated
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
zithromax or doxy daily vs MWF--covid neg--? aspiration, consult speech
Hypochloremic hyponatremia--possibly due to dehydration vs SIADH from chronic lung issues--cont IVF and follow sodium
constipation--noted on CT scan--start with dulcolax suppositories, miralax, colace--if no improvement, do mild & molasses enema
Glaucoma--Continue home medication, latanoprost
DVT prophylaxis--Lovenox
code status--DNR
Original Note:
Family Physician
-
Family Physician: Rima Norman MD
Chief Complaint
-
.
History of Present Illness
Shaye Ambrocio is an 84-year-old female with a past medical history of Alzheimer's dementia, COPD, GERD, bronchiectasis, MARITZA who presented to the emergency department [facility] from [facility]. History is limited secondary to
Alzheimer's dementia. History was taken from [facility] out of facility forms, emergency physician, and nephew Leonardo who is the patient's power of commonwealth attorney and at bedside.
Patient was recently discharged from [facility] less than 1 week ago for acute on chronic respiratory failure and possible atypical pneumonia. Per [facility], since this morning the patient has been complaining of right upper abdominal
pain/right lower rib pain. Additionally, the patient is normally on 2 L of oxygen has required 4 L of oxygen and has been responding to it. The patient notes that she also has a cough. She denies chest pains abdominal pain nausea vomiting or
diarrhea.
ED COURSE: In the emergency department, the patient had a white count of 16.1 that was neutrophil predominant. EKG and troponins were negative. LFT/lipase/UA/upper abdominal ultrasound were all negative. Initial chest x-ray was performed which
was negative, however, CTA done to rule out PE showed a right sided consolidation that was likely due to either atelectasis or a right-sided pneumonia with pleural effusion.
Medical History
Past Medical History
Past Medical History: Reports Other (Alzheimer's dementia, COPD, GERD, bronchiectasis, MARITZA)
Past Surgical History: Reports Other (Hernia repair)
Social History
Unable to obtain full social history at this time due to: Dementia
Tobacco: Former Smoker
Alcohol: None
Drug: None
Living: Assisted Living
Family History
Family History: Unable to Obtain
Allergies / Home Medications
Allergies reflects when Allergies were last updated in [employer].
Home Medications with original date entered in [employer]
Allergy/Medication List:
MEDICATIONS
Wixela inhub 100 mcg - 50 mcg/dose powder for inhalation
Albuterol sulfate HFA 90 mcg
Tylenol 325 mg p.o. as needed for discomfort
Guaifenesin 600 mg as needed for cough
ALLERGIES
If medication reconciliation has not been performed, why?: Dementia
Review of Systems
-
Unable to obtain full review of systems at this time due to: Dementia
History Source: Patient, Family and Penitentiary
Constitutional: Reports No Symptoms
Respiratory: Reports Cough, Trouble Breathing and Other (right lower rib pain)
Cardiac: Reports No Symptoms
Abdomen/GI: Reports Abdominal Pain
: Reports No Symptoms
Physical Exam
Vital Signs
Vital Signs
Temp Pulse Resp BP Pulse Ox
98.0 F 94 30 155/108 96
05/05/24 18:02 05/05/24 18:00 05/05/24 18:00 05/05/24 17:00 05/05/24 18:00
Physical Exam
General: Conversant, Respiratory Distress (mild; Sat 88% on 4L O2) and Other (Frail, pleasantly demented)
HEENT: NormoCephalic and Anicteric
Respiratory: Wheezes, Crackles and Other (Tachypnea)
Cardiac: Regular Rhythm and Tachycardia
GI: Soft, Non Distended and Tender (RUQ)
Musculoskeletal: No Edema
Neuro: Awake, Alert and Other (Oriented to Person only. )
Psych: Calm
Laboratory Results
-
05/05/24 12:59
05/05/24 12:59
Laboratory Results
Lactic Acid 1.0 mmol/L (0.7-2.0) 05/05/24 17:50
Total Bilirubin 0.8 mg/dl (0.2-1.3) 05/05/24 12:59
AST 19 U/L (14-36) 05/05/24 12:59
ALT 16 U/L (0-35) 05/05/24 12:59
Alkaline Phosphatase 101 U/L (38-126) 05/05/24 12:59
Troponin I < 0.012 ng/ml 05/05/24 12:59
Lipase 46 U/L (23-300) 05/05/24 12:59
See HPI.
Data Reviewed
-
Diagnostic Radiology: Report Reviewed by me
CT Scan: Report Reviewed by me
Ultrasound: Report Reviewed by me
Lab Data: Labs Reviewed by me
Impression/Plan
-
IMPRESSION:
84-year-old female with a past medical history of Alzheimer's dementia, COPD, bronchiectasis, MARITZA who was recently hospitalized for acute on chronic respiratory failure and potential atypical pneumonia who is presenting with right-sided lower rib
pain, right upper quadrant abdominal pain, increased oxygen requirements, and cough with chest CTA showing potential pneumonia.
PLAN:
1. Pneumonia, CAP versus HAP
-Potential pneumonia seen on CT of the chest in the ED.
-Given the patient's recent hospitalization this potentially hospital-acquired pneumonia.
-Vancomycin plus cefepime
2. SIRS with a potential source of infection
- WBC 16.1 + tachycardia/tachypnea in ED
-Blood cultures
-Lactate
-Antibiotics as above
3. Acute hypoxic respiratory insufficiency
-Patient's baseline is 2 L now requiring 4 to 5 L
-Bronchiectasis noted on CT
-Continue DuoNeb treatment
-Change Solu-Medrol to Decadron 4 mg q12h
-Pulmonary consult
-COVID test
-Speech/nutrition consult for concerns for aspiration and pulmonary cachexia
4. Hypochloremic hyponatremia
-Sodium 132 in the ED
-IV fluids NS at rate of 60
-BMP in a.m.
5. Glaucoma
-Continue home medication, latanoprost
6. DVT prophylaxis
-Lovenox
[2024-05-05 19:14] LABS: COVID-19 Antigen Negative (Negative)
[2024-05-05] MEDS: LOVENOX 30 MG SC (21:19)
[2024-05-05] MEDS: ADVAIR HFA 45/21 MCG INHALER 2 PUFF INH (21:19)
[2024-05-05] MEDS: NSS 1000 IV (21:19)
--- NOTE | 2024-05-05 21:22 | PHA.VAN.IN ---
Assessment
- Assessment
Renal Function: Appears similar to baseline
Concomitant Antimicrobials: CEFEPIME
- Previous Dosing Experience
Previous Regimen: NONE
AUC Dosing Plan
- Dosing Variables
Dosing Weight (kg): 54.7
Dosing CrCl (ml/min): 59
Vd coefficient (L/kg): 0.7
- Empiric Dosing
Initial / Loading Dose: 1GM
Maintenance Regimen: 1GM IV Q24H
Estimated AUC (mcg*h/mL): 502
Estimated Peak (mcg*h/mL): 36.2
Estimated Trough (mcg/ml): 10.6
Estimated Half Life (H): 13
Pharmacokinetics Vancomycin I
- -
Patient Age: 84
Patient Sex: Female
Vancomycin Day #: 1
Indication: Pulmonary/Respiratory (SEPSIS)
Requesting Provider: YOVANNY
Height / Weight:
Height 5 ft 4 in
Actual Weight 40.965 kg
IBW in k.7
- Vital Signs / Lab Results
Temp Pulse Resp BP Pulse Ox
97.6 F 94 16 135/63 92
05/05/24 21:04 05/05/24 21:04 05/05/24 21:04 05/05/24 21:04 05/05/24 21:04
Lab Results - Hematology
05/05/24
12:59
WBC 16.1 H
Lab Results - Chemistry
05/05/24
12:59
BUN 9
Creatinine 0.6
Albumin 3.5
05/05/24
17:50
Lactic Acid 1.0
Lab Results - Urine
05/05/24
15:18
Urine Nitrite (Reflex) Negative
Leukocyte Esterase Rfl Negative
[2024-05-06] MEDS: DECADRON 4 MG IV ×5 (00:37→23:15)
[2024-05-06] MEDS: XALATAN OPHTHALMIC SOLUTION 1 DROP BOTH EYES ×2 (00:37→23:09)
--- NOTE | 2024-05-06 04:27 | PTCARENOTE ---
This RN assumed care of this pt at 0400am.
[2024-05-06] MEDS: MAXIPIME 2000 MG IV ×2 (05:10→18:32)
[2024-05-06] MEDS: STERILE WATER FOR INJECTION 10 ML IV ×2 (05:10→18:33)
[2024-05-06] MEDS: VANCOCIN 200 IV (05:17)
[2024-05-06 07:02] LABS: % Basophils 0.1 % (0-2); % Immature Granulocytes 0.4 % (0-0.5); % Lymphocytes 2.9 % (20.5-51.1); % Monocytes 0.5 % (1.7-9.3); % Neutrophils 96.1 % (42.2-75.2); Absolute Immature Granulocytes 0.1 10^3/uL (0-0.05); Absolute Lymphocytes 0.3 10^3/uL (1.2-3.4); Absolute Monocytes 0.1 10^3/uL (0.1-0.6); Absolute Neutrophils 10.8 10^3/uL (1.4-6.5); Hematocrit 32.7 % (37.0-47.0); Hemoglobin 11.1 g/dL (12.0-16.0); Mean Corp Hgb Conc. 33.9 g/dL (33.0-37.0); Mean Corpuscular Hgb 27.9 pg (27.0-31.0); Mean Corpuscular Volume 82.2 fL (81.0-99.0); Mean Platelet Volume 9.2 fL (7.4-10.4); Nucleated Red Blood Cells % 0 %; Platelet Count 405 10^3/uL (130-400); Red Blood Cell Count 3.98 10^6/uL (4.20-5.40); Red Cell Dist. Width 13.4 % (11.5-14.5); White Blood Cell Count 11.3 10^3/uL (4.8-10.8)
[2024-05-06 07:27] VITALS: BP 102/53
[2024-05-06 07:30] LABS: ALT (SGPT) 15 U/L (0-35); AST (SGOT) 17 U/L (14-36); Albumin 3.1 g/dl (3.5-5.0); Alkaline Phosphatase 87 U/L (38-126); Blood Urea Nitrogen 15 mg/dl (7-17); Calcium 8.8 mg/dl (8.4-10.2); Carbon Dioxide 23 mmol/L (22-30); Chloride 95 mmol/L (98-107); Estimated Creatinine Clearance 44 ml/min; Glucose 226 mg/dl (70-99); Potassium 4.4 mmol/L (3.5-5.1); Sodium 130 mmol/L (135-145); Total Bilirubin 0.3 mg/dl (0.2-1.3); Total Protein 6.6 g/dl (6.3-8.2); eGFR > 60.00
[2024-05-06] MEDS: ADVAIR HFA 45/21 MCG INHALER 2 PUFF INH ×2 (07:47→19:25)
--- NOTE | 2024-05-06 08:20 | PHA.VAN.FU ---
Vancomycin Assessment / Plan
- Assessment
Renal Function: Stable
WBC's are: Trending Down
In the past 24 hrs, patient has been: Afebrile
Concomitant Antimicrobials: cefepime
- Dosing Plan
Continue: Vanc 1000mg Q24H (dosed using IBW for BMI < 20)
- Monitoring Plan
No level(s) ordered at this time: consider levels in next few days
MRSA Screen: Ordered per protocol
- Follow Up
Pharmacy will continue to follow.
Vancomycin Follow UP
- -
Patient Age: 84
Patient Sex: Female
Vancomycin Day #: 2
Indication: Pulmonary/Respiratory (SEPSIS)
Requesting Provider: Dr. Fish (resident)
Pertinent Antimicrobial Allergies:
NKDA
Height / Weight:
Height 5 ft 4 in
Actual Weight 40.965 kg
IBW in k.7
Pertinent Past Medical History: BMI ~15.5, COPD (chronic O2), MARITZA
- Vital Signs / Lab Results
Temp Pulse Resp BP Pulse Ox
97.3 F 91 18 102/53 92
05/06/24 07:27 05/06/24 08:08 05/06/24 08:08 05/06/24 07:27 05/06/24 08:08
Lab Results - Hematology
05/05/24 05/06/24
12:59 06:44
WBC 16.1 H 11.3 H
Lab Results - Chemistry
05/05/24 05/06/24
12:59 06:44
BUN 9 15
Creatinine 0.6 0.5 L
Estimated Creat Clear 44
Albumin 3.5 3.1 L
05/05/24
17:50
Lactic Acid 1.0
Lab Results - Urine
05/05/24
15:18
Urine Nitrite (Reflex) Negative
Leukocyte Esterase Rfl Negative
[2024-05-06] MEDS: DULCOLAX 10 MG RECTAL ×2 (08:31→08:34)
[2024-05-06] MEDS: MUCINEX 600 MG PO ×2 (08:31→20:10)
--- NOTE | 2024-05-06 09:10 | PTOTSP ---
Speech Language Pathology
Pt seen for clinical bedside swallow evaluation. No prior FLOAT TENDER at , but pt has had 3 admissions for respiratory issues since November, including current admission. P.O. trials of puree, regular solids, and thin liquids provided. Adequate
mastication, bolus formation, and A-P transit. No overt coughing, but when trials finished at end of evaluation, wet vocal quality noted. She required mod cueing to clear this with cough.
Recommend:
(1) VSE
(2) NPO
(3) Necessary meds in puree; otherwise, hold until VSE results noted
(4) Will determine ARHP following VSE
(5) FLOAT TENDER to continue to follow
--- NOTE | 2024-05-06 09:44 | CON.PUL ---
Consultation
Consultation Request
Date/Time Consultation Requested: 05/05/2024 - 2037
Date/Time Consultation Performed: 05/06/2024932
Requesting Provider: Dr. Fish
Performing Provider: Dr. Morse
Reason for Consultation: Hypoxia/Pneumonia
Medical History
-
Chief Complaint: Right-sided abdominal pain
History of Present Illness:
84-year-old female former tobacco smoker with a past medical history of COPD, restrictive lung defect, pulmonary MAC, bronchiectasis, dementia, GERD and glaucoma who presents with right side abdominal pain from [place] [facility]. Patient is a poor historian
due to Alzheimer's dementia with confusion. On the morning prior to arrival, patient was endorsing right upper abdominal pain/right lower rib pain. She normally is on 2 L/min of oxygen but had required up to 4 L/min and the patient had a cough.
In the ER she was afebrile to 98.5 �F, pulse rate 103, breathing at 19 breaths/min, BP 162/95 and initially saturating 85% on room air. She was placed onto 5 L/min with saturations improving to 90%. Labs showed leukocytosis to 16.1, anemia to
11.8, platelet count 447, sodium 132, troponin negative at <0.012, urinalysis with +1 ketones and COVID antigen negative. CXR obtained showing no convincing acute cardiopulmonary process with chronic interstitial changes. An abdominal ultrasound
was performed which was essentially unremarkable with contracted gallbladder which is poorly visualized with CBD measuring 5.6 mm. CTA chest + CT abdomen/pelvis with IV contrast showed no central PE, with right lower lobe opacification compatible
with subsegmental atelectasis and/or pneumonia with a tiny right pleural effusion. Also widespread bilateral prominent chronic interstitial markings with areas of bronchiectasis. In the ER she was given cefepime, DuoNebs, Solu-Medrol 125 mg + IV
vancomycin, and admitted to telemetry under the hospitalist. Pulmonary now consulted for additional management/recommendations.
Of note, she follows with pulmonology at [facility] with Dr. Jeong. She has severe COPD/severe restriction with FEV1 about 37-40% predicted, TLC 36% predicted with DLCO 36% predicted. She is on Wixela at home. She also
apparently uses 2 L/min at home as well at baseline.
When I saw the patient she was resting in bed in no acute distress on 2 L/min. She is a poor historian and is confused. She currently denies shortness of breath or cough. Also denies fevers, chills and says that she has been losing weight. She
appears in no acute distress, without conversational dyspnea.
PMHx: Reported history of COPD, GERD, glaucoma, former tobacco use, reported Hx of MARITZA, history of bronchiectasis, advanced dementia/Alzheimer's
PSHx: Cataract surgery
Past Medical History
Past Medical History: Other (Above as per HPI)
Past Surgical History: Other (Above as per HPI)
Social History
Tobacco: Former Smoker
Alcohol: None
Drug: None
Personal: Single
Living: Other (Lives at [facility])
Employment: Retired
Family History
Family History: Other (CVA: Mother)
Allergies / Home Medications
Allergies
Allergy/AdvReac Type Severity Reaction Status Date / Time
No Known Allergies Allergy Verified 05/05/24 17:04
Home Medications
�Medication �Instructions �Recorded �Confirmed �Last Taken �Type
fluticasone 100 mcg-salmeterol 50 1 inh inhalation R BID 12/15/23 05/05/24 Unknown History
mcg/dose blistr powdr for Lung/Breathing Issues
inhalation (Wixela Inhub)
latanoprost 0.005 % eye drops 1 drp BOTH EYES BID Eye Condition 12/15/23 05/05/24 Unknown History
acetaminophen 325 mg tablet 650 mg PO Q4HPRN PRN mild pain 04/28/24 05/05/24 Unknown History
(Tylenol)
albuterol sulfate 90 mcg/actuation 2 puff inhalation R Q6HPRN PRN 04/28/24 05/05/24 Unknown History
aerosol inhaler shortness of breath or wheezing
guaifenesin 600 mg tablet, 600 mg PO Q12H cough 05/05/24 05/05/24 Unknown History
extended release 12 hr
Review of Systems
-
Unable to Obtain full review of systems at this time due to: Dementia
Vitals / Labs / Diagnostic Testing
Vital Signs
Temp Pulse Resp BP Pulse Ox
97.3 F 91 18 102/53 92
05/06/24 07:27 05/06/24 08:08 05/06/24 08:08 05/06/24 07:27 05/06/24 08:08
Lab Data
05/06/24 06:44
05/06/24 06:44
Diagnostic Testing:
Physical Exam
-
HEENT: Normocephalic and Anicteric
Cardiovascular: S1/S2 and Peripheral Edema (negative)
Respiratory: Wheeze ([place] upon expiration in left hemithorax posteriorly), Rales (Right hemithorax), Rhonchi (Right hemithorax) and Non-Labored Respirations
GI: Soft, Non Distended, Non Tender and Normal Bowel Sounds
Neurology: Awake, Alert and Tremors (negative)
Skin: Warm and Dry
General: Respiratory Distress (negative), Comfortable, Chills (negative), Sweats (negative) and Other (No acute distress; confused; pleasantly demented)
Assessment
-
Assessment: 84-year-old female former tobacco smoker with a PMHx of COPD, restrictive lung defect, pulmonary MAC, bronchiectasis, dementia, GERD and glaucoma who presents with right side abdominal pain from [place]. Patient is a poor historian due
to Alzheimer's dementia with confusion. On the morning prior to arrival, patient was endorsing right upper abdominal pain/right lower rib pain. She normally is on 2 L/min of oxygen but had required up to 4 L/min and the patient had a cough. In
the ER she required up to 5 L/min to reach saturations of 90%. Initial CXR showed no convincing evidence for an acute cardiopulmonary process. Abdominal ultrasound was unremarkable and CTA chest/CT abdomen/pelvis showed no evidence for a central
acute PE, with right lower lobe opacification concerning for pneumonia and/or subsegmental atelectasis. Also widespread chronic interstitial markings with areas of bronchiectasis. CT abdomen/pelvis was unremarkable with no etiology of her pain.
In the ER she was given DuoNebs, Solu-Medrol, cefepime/IV vancomycin and admitted to telemetry under the hospitalist. Pulmonary consulted for additional management/recommendations.
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
Impression:
#Right lower lobe pneumonia/HAP (new compared to recent CTA chest on 04/28/2024) with small parapneumonic effusion
#Sepsis without shock due to above
#Acute on chronic respiratory failure with hypoxia on supplemental oxygen due to above
#Chronic anemia (baseline Hb: 11.5�13g/dL)
#Thrombocytosis, likely reactive given acute illness
#Hypochloremia, hyponatremia
#Hyperglycemia
#Pulmonary bronchiectasis in RUL, medial RML, lingula, and bilateral lower lobes
#Hx of severe COPD with mosaic attenuation likely due to air trapping on Wixela inhub 100mcg with prn albuterol MDI at home
#Severe restrictive lung defect (T% predicted via review of prior notes)
#Constipation
#Former tobacco smoker
Plan:
- There is new opacification with air bronchograms in the posterior right lower lobe and area of atelectasis in the anterolateral right lower lobe, suspicious for pneumonia with atelectasis; also tiny right lower lobe pleural effusion likely
parapneumonic
- Continue with broad-spectrum antibiotics with cefepime + IV vancomycin
- Follow-up blood cultures (collected 05/05/2024 - NGTD)
- MRSA swab negative --> Ok to DC IV vanco
- Check urine antigens for legionella and Strep PNA
- Check sputum Cx if pt can provided a decent sample; check sputum AFB (to assess for nontuberculous Mycobacterium; not concerned for tuberculosis)
- Maintain SpO2 88-95% with supplemental O2 and wean down as tolerated
- Check ambulatory pulse oximetry prior to discharge unless resting SpO2 is >95% on room air
- Right-sided pleural effusion is tiny and too small to safely perform thoracentesis; continue to monitor
- Although she presented with abdominal pain, abdominal ultrasound shows unremarkable findings with contracted gallbladder which was poorly visualized with no intra/extrahepatic biliary ductal dilatation with CBD measuring 5.6 mm; no hydronephrosis
seen in the kidneys
- LFTs are WNL
- Lactate also WNL at 1mmol/L
- Pain control
- She is wheezing on exam at bedside mainly on the left hemithorax
- Continue with Advair 45mcg and start DuoNebs QID with prn nebulized bronchodilators for breakthrough symptoms
- Continue systemic steroids with Decadron 4 mg IV q6hr, and wean as she clinically improves --> if she is doing well tomorrow then would wean down to 4mg IV q8hr
- Mucinex
- May need vest if pt has difficulty expectorating her phlegm
- Aspiration precautions
- Incentive spirometer encouraged 10x per hour for at least 4 hrs a day
- Trend sNa with goal 135-145
- Replete electrolytes with K>4, Mg>2
- Maintain euglycemia with goal BG >100 and <180
- DVT ppx: LMWH
Of note, she follows with pulmonary at [facility] with Dr. Jeong. She has a history of severe COPD with severe restrictive lung disease and bronchiectasis with history of tree-in-bud nodular opacities and pulmonary MAC. She is aware of her serious
lung disease and she had opted for conservative treatment
Pulmonary service will continue to follow along.
Data:
CTA chest, CT abdomen/pelvis with IV contrast 05/05/2024:
In comparison to very recent prior study there are again seen no central pulmonary arterial filling defects to suggest pulmonary embolism.
Widespread bilateral prominent likely chronic interstitial markings are again seen with areas of bronchiectasis.
There is new right lower lobe opacification compatible with subsegmental atelectasis and/or pneumonia and tiny right pleural effusion.
Evaluation of the soft tissues of the abdomen and pelvis markedly limited by beam hardening artifact from the patient's bilateral upper extremities, lack of oral/enteric contrast and marked paucity of intra-abdominal/pelvic fat, without intestinal
obstruction or free air. Bowel pathology cannot be excluded.
Large volume stool in the rectum.
RUQ abdominal ultrasound 05/05/2024: Essentially unremarkable abdominal ultrasound, as detailed above. Gallbladder poorly visualized and may be contracted.
Total time spent today was 57 minutes for this encounter. Time includes reviewing laboratory test/imaging results, reviewing pertinent medical records, obtaining and reviewing medical history, performing an appropriate exam, ordering medications,
tests and procedures. Time also includes documentation of this encounter, coordinating patient care and communicating with other healthcare professionals. Total time does not include separately billed tests performed on this date of service.
[2024-05-06 10:42] VITALS: BMI 15.5
[2024-05-06 10:45] VITALS: BP 134/72; PULSE 93; O2SAT 91
[2024-05-06 10:46] VITALS: BP 134/72; PULSE 96; O2SAT 91
--- NOTE | 2024-05-06 11:00 | PTOTSP ---
Speech Language Pathology
VIDEOFLUOROSCOPIC SWALLOWING EXAMINATION (VSE) completed. Overall, pt with mild oral dysphagia with decreased mastication and rapid A-P transit. Transient supraglottic penetration with no aspiration noted despite wet vocal quality noted during
study. No significant pharyngeal residue.
Recommend:
(1) IDDSI Level 6 (soft/bite-sized) and thin liquids
(2) Aspiration precautions: sit upright, slow rate, distant supervision
(3) Meds as tolerated
(4) WATER SUPERVISOR to follow
[2024-05-06 11:04] LABS: Osmolality Serum 275 mOsm/kg (275-300)
--- NOTE | 2024-05-06 14:29 | CM ---
Addendum entered by Meghan Sorensen 05/06/24 15:54:
VM for admissions at [facility] left, pending call back, CM will send referral via all scripts to [facility] to review. CM will continue to follow for discharge planning needs.
Original Note:
Patient seen at bedside with physician. Patient is a LTC patient from [facility] and CM to call admissions to confirm prior level of functioning. CM will continue to follow for discharge planning needs.
Plan; return to SNF vs personal care setting
[2024-05-06 15:38] VITALS: BP 151/73
--- NOTE | 2024-05-06 16:18 | W.PN.HOSP.TC ---
Addendum entered and electronically signed by Taras Fish DO, Resident 05/08/24 15:39:
*Likely Acute Hypoxic Respiratory Insufficiency on Chronic Hypoxic Respiratory Failure on admission; with concern for acute hypoxic respiratory failure
Addendum entered and electronically signed by Shaye Damian MD 05/06/24 19:26:
I saw and evaluated the patient independently. I reviewed the resident�s note and agree with findings and plan as documented by Dr. Fish.
GENERAL: elderly, frail, cachectic, demented female in no apparent distress
HEENT: NC/AT 3L NC O2 in place
HEART: regular rate and rhythm, +S1, +S2
LUNGS : coarse crackles throughout anterior > posterior with faint wheezes throughout--improved
ABDOM: soft, tender RUQ and over lower ribs, nondistended, + bowel sounds
EXT: no cyanosis, clubbing, or edema
NEUROLOGIC: grossly intact with apparent dementia
sepsis (POA) likely due to Pneumonia, CAP versus HAP (pt recently hospitalized) vs progressive MARITZA--Potential pneumonia seen on CT of the chest in the ED--apprec pulm, cont vanco/cefepime--await culture results--trend WBC (was on steroids last
admission), lactate normal
Acute hypoxic respiratory insufficiency on chronic hypoxic resp failure (due to 2L O2 dependent COPD)--due to CAP/HAP as above or progressive MARITZA with bronchiectasis noted on CT scan--cont IV steroids, wean as tolerated, apprec pulm--consideration
for maintenance zithromax or doxy daily vs MWF--covid neg--no aspiration per VSE-- diet as per speech
Hypochloremic hyponatremia--possibly due to dehydration vs SIADH from chronic lung issues--stop IVF and follow sodium, now 130--check urine studies--may need renal if drops further--could be SIADH from lung process
constipation--noted on CT scan--start with dulcolax suppositories, miralax, colace--improved
Glaucoma--Continue home medication, latanoprost
hyperglycemia--likely from steroids, agree with SSI and HGB A1C check
DVT prophylaxis--Lovenox
code status--DNR
Original Note:
Today's Communication/Plan
-
.
Assessment / Plan
Assessment / Plan
1. Pneumonia, CAP versus HAP
-Potential pneumonia seen on CT of the chest in the ED.
-Given the patient's recent hospitalization this potentially hospital-acquired pneumonia.
-Vs. chronic MARITZA/pulmonary fibrosis
-Vancomycin plus cefepime
- Awaiting pulmonary consult
2. SIRS with a potential source of infection
- WBC 16.1 + tachycardia/tachypnea in ED --> WBC 11.5 today.
-Blood cultures pending
-Lactate WNL
-Antibiotics as above
3. Acute hypoxic respiratory insufficiency
-Patient's baseline is 2 L; required 4-5L yesterday; now requiring 3L; trial wean to 2L today
-Bronchiectasis noted on CT
-Continue DuoNeb treatment
-Decadron 4 mg q12h
-Pulmonary consult
-COVID test
-Speech/nutrition consult for concerns for aspiration and pulmonary cachexia: reccs Level 6 soft diet
4. Hypochloremic hyponatremia
-132--> 130
-IVF discontinued
-Monitor BMP
-F/u urine sodium, urine osmol, serum osmol results
5. Glaucoma
-Continue home medication, latanoprost
6. DVT prophylaxis
-Lovenox
7. Hyperglycemia
- ACHS glucose checks
- Start SS if glucose continues to remain elevated
- Likely steroid induced hyperglycemia
8. Constipation
- improving. Continue to monitor BMs.
Anticipated Discharge: 24 - 48 hours
Subjective/Interval History
-
Date of Service: May 06, 2024
No acute complaints per patient but unreliable historian secondary to Alzheimer's dementia. Per nursing, the patient has been stable on 3L (4L yesterday) and will try to wean to 2L later today. Patient has had 2 very small stools and 1 larger looser
stool per nursing s/p suppository.
Objective Data
-
Labs:
Laboratory Results
05/06/24
06:44
WBC 11.3 H
Hgb 11.1 L
Hct 32.7 L
Plt Count 405 H
Sodium 130 L
Potassium 4.4
Chloride 95 L
Carbon Dioxide 23
BUN 15
Creatinine 0.5 L
Glucose 226 H
Calcium 8.8
Total Bilirubin 0.3
AST 17
ALT 15
Alkaline Phosphatase 87
Vital Signs:
Vital Signs
Temp Pulse Resp BP Pulse Ox
97.5 F 111 18 151/73 95
05/06/24 15:38 05/06/24 15:38 05/06/24 15:38 05/06/24 15:38 05/06/24 15:38
I&O
05/05/24 05/06/24 05/07/24
06:59 06:59 06:59
Intake Total 930 / 930
Balance 930 / 930
Review of Systems
-
Unable to obtain full review of systems at this time due to: Dementia
Physical Exam
-
General: No Apparent Distress, Comfortable and Conversant
HEENT: Normocephalic and Atraumatic
Respiratory: Wheezes, Crackles and Non Labored Respirations
Cardiac: Regular Rhythm and S1/S2
GI: Soft and Nontender
Neuro: Awake, Alert and Oriented (to person only)
Psych: Calm
Data Reviewed
-
Labs: Labs Reviewed by me
[2024-05-06] MEDS: LOVENOX 30 MG SC (18:32)
[2024-05-06] MEDS: DUONEB 3 ML INH (19:25)
[2024-05-06] MEDS: NSS IV (20:08)
[2024-05-06 21:57] LABS: Glucose - Point of Care 300 mg/dl (70-99)
[2024-05-06] MEDS: NOVOLOG FLEXPEN 7 UNITS SC (23:09)
[2024-05-06 23:20] VITALS: BP 117/67
[2024-05-07 01:16] LABS: Glucose - Point of Care 220 mg/dl (70-99)
--- NOTE | 2024-05-07 06:00 | PTCARENOTE ---
Attempted to administer ordered 0600 medications, patient became agitated, aggressive towards staff, getting out of bed, attempted to leave room, attempted to go into roommates side of room, pulling at medical equipment and combative to multiple
staff members. Multiple staff members assisted patient back into bed, LENS EXAMINER made aware and order placed for B/L soft wrist restraints along with 1mg IM Haldol. See MAR for administration and worklist for documentation of restraints.
--- NOTE | 2024-05-07 06:06 | W.PN.UPDATE ---
Update Note
Progress Note Update
pt combative with staff this morning necessitating wrist restraints and trial of haldol iv.
[2024-05-07] MEDS: DECADRON 4 MG IV ×3 (06:09→20:46)
[2024-05-07] MEDS: VANCOCIN 200 IV (06:10)
[2024-05-07] MEDS: STERILE WATER FOR INJECTION 10 ML IV ×2 (06:10→18:27)
[2024-05-07] MEDS: MAXIPIME 2000 MG IV ×2 (06:10→18:27)
[2024-05-07] MEDS: HALDOL 1 MG IM (06:20)
[2024-05-07 07:25] VITALS: BP 149/91
[2024-05-07] MEDS: DUONEB 3 ML INH ×4 (07:37→19:20)
[2024-05-07] MEDS: ADVAIR HFA 45/21 MCG INHALER 2 PUFF INH ×2 (07:37→19:19)
--- NOTE | 2024-05-07 08:15 | PHA.VAN.FU ---
Vancomycin Assessment / Plan
- Assessment
Renal Function: Stable
WBC's are: Trending Down
In the past 24 hrs, patient has been: Afebrile
Concomitant Antimicrobials: Cefepime
- Dosing Plan
Continue: vancomycin 1000 mg q24h
- Monitoring Plan
No level(s) ordered at this time: consider levels after 4th dose ( 0600 05/08/24)
- Follow Up
Pharmacy will continue to follow.
Vancomycin Follow UP
- -
Patient Age: 84
Patient Sex: Female
Vancomycin Day #: 3
Indication: Pulmonary/Respiratory (SEPSIS)
Requesting Provider: Dr. Fish (resident)
Pertinent Antimicrobial Allergies:
NKDA
Height / Weight:
Height 5 ft 4 in
Actual Weight 40.965 kg
IBW in k.7
Pertinent Past Medical History: BMI ~15.5, COPD (chronic O2), MARITZA
- Vital Signs / Lab Results
Temp Pulse Resp BP Pulse Ox
97.6 F 119 18 149/91 92
05/07/24 07:25 05/07/24 07:42 05/07/24 07:42 05/07/24 07:25 05/07/24 07:42
Lab Results - Hematology
05/05/24 05/06/24
12:59 06:44
WBC 16.1 H 11.3 H
Lab Results - Chemistry
05/05/24 05/06/24
12:59 06:44
BUN 9 15
Creatinine 0.6 0.5 L
Estimated Creat Clear 44
Albumin 3.5 3.1 L
05/05/24
17:50
Lactic Acid 1.0
Microbiology Results
05/06/24 18:53 Legionella Urinary Antigen - Final
Urine Negative for Legionella pneumophila Serogroup 1 antigen.
A negative result does not rule out the possiblity of
Legionella infection due to other serogroups or species of
Legionella. Clinical correlation is recommended.
Streptococcus pneumoniae Antigen (M - Final
Negative for Streptococcus pneumoniae antigen.
A negative result does not exclude infection with
Streptococcus pneumoniae. Clinical correlation is
recommended.
05/05/24 17:50 Blood Culture - Preliminary
Blood/Venous No Growth in 24 hours- Final report to follow
05/05/24 17:50 Blood Culture - Preliminary
Blood/Venous No Growth in 24 hours- Final report to follow
05/06/24 09:44 Nasal Screen MRSA (PCR) - Final
Nose MRSA not detected - performed by PCR methodology.
--- NOTE | 2024-05-07 08:49 | PN.CDI ---
CDI
- -
CDI:
Physician Documentation Request
Admit Date: 05/05/24 18:54
Dear Doctor Abe,
Patient admitted for sepsis.
05/06 Pulmonary Consult: 'Acute on chronic respiratory failure with hypoxia on supplemental oxygen due to above'
05/06 Hospitalist PN: 'Acute hypoxic respiratory insufficiency on chronic hypoxic resp failure (due to 2L O2 dependent COPD)...Acute hypoxic respiratory insufficiency -Patient's baseline is 2 L; required 4-5L yesterday; now requiring 3L; trial wean
to 2L today'
Selected Entries
05/05/24
13:02 05/05/24
23:15 05/06/24
10:46
Nasal Cannula flow liters per minute 5 5 4
Clarify which of the following accurately represents the patient's respiratory status:
Acute on chronic hypoxic respiratory failure
Acute hypoxic respiratory insufficiency on chronic hypoxic respiratory failure
Hypoxia
Other
Additional information for Respiratory Failure:
Recognized criteria for Respiratory Failure (Source: [employer] Hospitalist Apr 2013)
ABGs: (1 or more) Symptoms Please indicate type if known
1. p)2 <60 or RA SPO2 <91% on RA 1. Tachypnea, SOB, dyspnea Hypoxic
2. pCO2 50 and pH <7.35 2. Use of accessory muscles Hypercapnic
3. pO2 decrease of pCO2 increase by 3. Pallor or cyanosis Hypoxic and Hypercapnic
10 mmHg from baseline if known 4. Anxiety or restlessness Unable to determine
5. Unable to speak in full sentences
Supplemental O2 of > 40% (5LPM) Intubation is not required
Use of terms such as suspected, likely, concern for, or probable (associated with a specific diagnosis that is being evaluated, monitored, or treated as if it exists) are acceptable and can be coded in the inpatient setting, when documented at the
time of discharge.
Thank you,
Dayanara Flores RN, BSN
CDI Specialist
Available via [place] text
Please use your independent medical judgment in providing your response.
--- NOTE | 2024-05-07 09:11 | PTCARENOTE ---
Pt cooperative and calm. Pt ambulated to bathroom with assist x1. Breakfast set up. Restraints removed.
[2024-05-07] MEDS: MUCINEX 600 MG PO ×2 (09:15→20:46)
[2024-05-07 09:17] LABS: % Basophils 0.2 % (0-2); % Immature Granulocytes 0.7 % (0-0.5); % Lymphocytes 2.1 % (20.5-51.1); % Monocytes 4.7 % (1.7-9.3); % Neutrophils 92.3 % (42.2-75.2); Absolute Immature Granulocytes 0.1 10^3/uL (0-0.05); Absolute Lymphocytes 0.4 10^3/uL (1.2-3.4); Absolute Monocytes 0.8 10^3/uL (0.1-0.6); Hemoglobin 11.4 g/dL (12.0-16.0); Mean Corp Hgb Conc. 32.6 g/dL (33.0-37.0); Mean Corpuscular Hgb 27.2 pg (27.0-31.0); Mean Corpuscular Volume 83.5 fL (81.0-99.0); Mean Platelet Volume 9.2 fL (7.4-10.4); Nucleated Red Blood Cells % 0 %; Platelet Count 477 10^3/uL (130-400); Red Blood Cell Count 4.19 10^6/uL (4.20-5.40); Red Cell Dist. Width 13.7 % (11.5-14.5); White Blood Cell Count 17.3 10^3/uL (4.8-10.8)
[2024-05-07 09:26] LABS: Glucose - Point of Care 276 mg/dl (70-99)
--- NOTE | 2024-05-07 09:30 | PTCARENOTE ---
Glucose elevated, resident made aware, new order provided, see MAR.
[2024-05-07 09:59] LABS: Blood Urea Nitrogen 18 mg/dl (7-17); Calcium 9.5 mg/dl (8.4-10.2); Carbon Dioxide 25 mmol/L (22-30); Chloride 96 mmol/L (98-107); Estimated Creatinine Clearance 44 ml/min; Glucose 196 mg/dl (70-99); Potassium 4.1 mmol/L (3.5-5.1); Sodium 133 mmol/L (135-145); eGFR > 60.00
--- NOTE | 2024-05-07 10:08 | W.PN.PUL3 ---
Today's Communication / Plan
-
Continue systemic steroids and continue weaning down as tolerated --> if doing well by tomorrow with no wheezing, stable O2 requirements and no worsening SOB then changed to 4 mg IV q12hr
Goal SpO2 88-95%
Management of confusion/agitation to primary team --> consider starting Seroquel vs prn Zyprexa in the meantime
Continue Advair + DuoNebs QID
Recheck CXR in 1-2 days to assess for persistence, versus worsening versus improvement of right-sided pleural effusion
ABx for total of 7 days
Check SCx/sputum AFB Cx
PT/OT
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
Assessment
-
Assessment: 84-year-old female former tobacco smoker with a PMHx of COPD, restrictive lung defect, pulmonary MAC, bronchiectasis, dementia, GERD and glaucoma who presents with right side abdominal pain from [place] run. Patient is a poor historian due
to Alzheimer's dementia with confusion. On the morning prior to arrival, patient was endorsing right upper abdominal pain/right lower rib pain. She normally is on 2 L/min of oxygen but had required up to 4 L/min and the patient had a cough. In
the ER she required up to 5 L/min to reach saturations of 90%. Initial CXR showed no convincing evidence for an acute cardiopulmonary process. Abdominal ultrasound was unremarkable and CTA chest/CT abdomen/pelvis showed no evidence for a central
acute PE, with right lower lobe opacification concerning for pneumonia and/or subsegmental atelectasis. Also widespread chronic interstitial markings with areas of bronchiectasis. CT abdomen/pelvis was unremarkable with no etiology of her pain.
In the ER she was given DuoNebs, Solu-Medrol, cefepime/IV vancomycin and admitted to telemetry under the hospitalist. Pulmonary consulted for additional management/recommendations.
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
Impression:
#Right lower lobe pneumonia/HAP (new compared to recent CTA chest on 04/28/2024) with small parapneumonic effusion
#Sepsis without shock due to above
#Acute on chronic respiratory failure with hypoxia on supplemental oxygen due to above
#Chronic anemia (baseline Hb: 11.5�13g/dL)
#Thrombocytosis, likely reactive given acute illness
#Hypochloremia, hyponatremia
#Hyperglycemia
#AMS with confusion - possibly steroid induced in setting of dementia
#Pulmonary bronchiectasis in RUL, medial RML, lingula, and bilateral lower lobes
#Hx of severe COPD with mosaic attenuation likely due to air trapping on Wixela inhub 100mcg with prn albuterol MDI at home
#Severe restrictive lung defect (T% predicted via review of prior notes)
#Constipation
#Former tobacco smoker
Plan:
- There is new opacification with air bronchograms in the posterior right lower lobe and area of atelectasis in the anterolateral right lower lobe, suspicious for pneumonia with atelectasis; also tiny right lower lobe pleural effusion likely
parapneumonic
- Continue with broad-spectrum antibiotics with cefepime; MRSA swab negative hence IV vancomycin was DC'd --> would give total of 7 days of ABx
- Follow-up blood cultures (collected 05/05/2024 - [facility]GTD)
- Urine antigens for legionella and Strep PNA both negative
- Check sputum Cx if pt can provided a decent sample; check sputum AFB (to assess for nontuberculous Mycobacterium; not concerned for tuberculosis)
- Maintain SpO2 88-95% with supplemental O2 and wean down as tolerated
- Check ambulatory pulse oximetry prior to discharge unless resting SpO2 is >95% on room air
- Right-sided pleural effusion is tiny and too small to safely perform thoracentesis; continue to monitor --> recheck CXR in 1-2 days
- Although she presented with abdominal pain, abdominal ultrasound shows unremarkable findings with contracted gallbladder which was poorly visualized with no intra/extrahepatic biliary ductal dilatation with CBD measuring 5.6 mm; no hydronephrosis
seen in the kidneys
- LFTs are WNL
- Lactate also WNL at 1mmol/L
- Pain control
- On admission, she was wheezing on exam at bedside mainly on the left hemithorax --> this has now resolved as of 05/07/2024
- Continue with Advair 45mcg and on 05/06 I started DuoNebs QID with prn nebulized bronchodilators for breakthrough symptoms
- Continue systemic steroids - wean down to 4mg IV q8hr s/p 4 mg IV q6hr, and continue to wean as she clinically improves --> if wheezing remains resolved by tomorrow with no worsening in SOB or O2 requirements, then continue to wean to 4mgm IV
q12hr --> I would like to try to wean down to the lowest possible steroid dose required as I feel that the steroids are worsening her mental status
- Mucinex
- May need vest if pt has difficulty expectorating her phlegm --> continue to monitor
- Aspiration precautions
- Incentive spirometer encouraged 10x per hour for at least 4 hrs a day
- Trend sNa with goal 135-145
- Replete electrolytes with K>4, Mg>2
- Agitation management per primary team - could consider nightly or BID Seroquel or prn Zyprexa (QTc 420ms from EKG on 05/05/2024)
- Maintain euglycemia with goal BG >100 and <180
- DVT ppx: LMWH
Of note, she follows with pulmonary at [facility] with Dr. Jeong. She has a history of severe COPD with severe restrictive lung disease and bronchiectasis with history of tree-in-bud nodular opacities and pulmonary MAC. She is aware of her serious
lung disease and she had opted for conservative treatment. Advised to continue follow-up with [facility] following discharge from here.
Pulmonary service will continue to follow along.
Data:
CTA chest, CT abdomen/pelvis with IV contrast 05/05/2024:
In comparison to very recent prior study there are again seen no central pulmonary arterial filling defects to suggest pulmonary embolism.
Widespread bilateral prominent likely chronic interstitial markings are again seen with areas of bronchiectasis.
There is new right lower lobe opacification compatible with subsegmental atelectasis and/or pneumonia and tiny right pleural effusion.
Evaluation of the soft tissues of the abdomen and pelvis markedly limited by beam hardening artifact from the patient's bilateral upper extremities, lack of oral/enteric contrast and marked paucity of intra-abdominal/pelvic fat, without intestinal
obstruction or free air. Bowel pathology cannot be excluded.
Large volume stool in the rectum.
RUQ abdominal ultrasound 05/05/2024: Essentially unremarkable abdominal ultrasound, as detailed above. Gallbladder poorly visualized and may be contracted.
Total time spent today was 38 minutes for this encounter. Time includes reviewing laboratory test/imaging results, reviewing pertinent medical records, obtaining and reviewing medical history, performing an appropriate exam, ordering medications,
tests and procedures. Time also includes documentation of this encounter, coordinating patient care and communicating with other healthcare professionals. Total time does not include separately billed tests performed on this date of service.
Subjective Data
-
Date of Service:
Date of Service: May 07, 2024
Chief Complaint: Pulmonary Follow Up
Subjective:
Patient was seen and evaluated today at bedside. Very confused, slightly agitated but is still answering my questions appropriately and staying in bed. Per the nurse, she required restraints earlier this morning. Currently on 2 L/min nasal
cannula saturating 94%.
Review of Systems
General: Other (Unable to obtain given patient's acute clinical status/confusion/dementia)
Objective Data
Data Reviewed
Vital Signs / I&O / Oxygen:
Vital Signs
Temp Pulse Resp BP Pulse Ox
97.6 F 109 18 149/91 93
05/07/24 07:25 05/07/24 11:16 05/07/24 11:16 05/07/24 07:25 05/07/24 11:16
Intake and Output
05/06/24 05/07/24 05/08/24
06:59 06:59 06:59
Intake Total 930 / 930
Output Total 200 / 200
Balance 930 / 930 -200 / -200
SaO2 93
Nasal Cannula flow liters per 3
minute
Physical Exam
General: Respiratory Distress (negative), Comfortable, Chills (negative), Sweats (negative) and Other (Confusion/slight agitation)
HEENT: Normocephalic and Anicteric
Cardiovascular: Peripheral Edema (negative) and Other (Difficult to auscultate cardiac sounds given loud rhonchi/rales heard from lungs)
Respiratory: Wheeze (negative), Crackles (Bilaterally (R >L)) and Rhonchi (Bilaterally (R >L))
GI: Soft, Non Distended, Non Tender and Normal Bowel Sounds
Neurology: Awake, Alert and Other (Confused)
Skin: Warm, Dry, Cyanosis (negative) and Jaundice (negative)
Labs/Micro/Reports
Lab Data
05/07/24 08:52
05/07/24 08:52
Microbiology
05/06/24 18:53 Urine Legionella Urinary Antigen - Final
Negative for Legionella pneumophila Serogroup 1 antigen.
A negative result does not rule out the possiblity of
Legionella infection due to other serogroups or species of
Legionella. Clinical correlation is recommended.
05/06/24 18:53 Urine Streptococcus pneumoniae Antigen (M - Final
Negative for Streptococcus pneumoniae antigen.
A negative result does not exclude infection with
Streptococcus pneumoniae. Clinical correlation is
recommended.
05/05/24 17:50 Blood/Venous Blood Culture - Preliminary
No Growth in 24 hours- Final report to follow
05/05/24 17:50 Blood/Venous Blood Culture - Preliminary
No Growth in 24 hours- Final report to follow
05/06/24 09:44 Nose Nasal Screen MRSA (PCR) - Final
MRSA not detected - performed by PCR methodology.
[2024-05-07 11:00] VITALS: BP 135/72; PULSE 120; O2SAT 93
[2024-05-07] MEDS: NOVOLOG FLEXPEN-LOW RESISTANCE 3 UNITS SC (11:11)
[2024-05-07 11:48] LABS: Glucose - Point of Care 334 mg/dl (70-99)
[2024-05-07] MEDS: NOVOLOG FLEXPEN-LOW RESISTANCE 4 UNITS SC (12:27)
--- NOTE | 2024-05-07 12:52 | CM ---
Patient seen at bedside with physicians. Patient from [facility]. CM spoke at length with patient dona and Marilin Ace at [facility] [phone]. Patient had episode of confusion and haldol administration per physician last dulce maria. Plan is
for patient to return to personal care tomorrow. Patient to have home O2 assessment per physician and is to have nebulizer treatments per review of chart. Patient dona is concerned about patient going to SNF and following discussion with CM
completed IMM form placed on chart.
Per Marilin from [facility] DON request is for patient to return tomorrow to personal care and for the nurse to call report to her at above phone number. Patient will need ambulance due to confusion. IF patient has further episodes of confusion please
discuss with Marilin options. Referral sent to [facility] for review. CM will continue to follow for discharge plan.
Plan; return to personal care with nebulizer treatments as ordered/home O2 assessment to be completed. Pending patient status overnight please update STONE with plan.
--- NOTE | 2024-05-07 14:14 | W.PN.HOSP.TC ---
Addendum entered and electronically signed by Shaye Damian MD 05/07/24 16:50:
I saw and evaluated the patient independently. I reviewed the resident�s note and agree with findings and plan as documented by Dr. Fish.
GENERAL: elderly, frail, cachectic, demented female in no apparent distress
HEENT: NC/AT 3L NC O2 in place
HEART: regular rate and rhythm, +S1, +S2
LUNGS : coarse crackles throughout anterior > posterior with faint wheezes throughout--improved
ABDOM: soft, tender RUQ and over lower ribs, nondistended, + bowel sounds
EXT: no cyanosis, clubbing, or edema
NEUROLOGIC: grossly intact with apparent dementia
sepsis (POA) likely due to Pneumonia, CAP versus HAP (pt recently hospitalized) vs progressive MARITZA--Potential pneumonia seen on CT of the chest in the ED--apprec pulm, cont vanco/cefepime--await culture results--trend WBC (was on steroids last
admission), lactate normal
Acute hypoxic respiratory failure on chronic hypoxic resp failure (due to 2L O2 dependent COPD)--due to CAP/HAP as above or progressive MARITZA with bronchiectasis noted on CT scan--cont IV steroids, wean as tolerated, apprec pulm--consideration for
maintenance Zithromax or doxy daily vs MWF--covid neg--no aspiration per VSE-- diet as per speech
sundowning/agitation--likely due to a combination of dementia (and out of her usual familiar environment) along with IV steroids--PRN seroquel--hopeful d/c back to [place]
Hypochloremic hyponatremia--possibly due to dehydration vs SIADH from chronic lung issues--stop IVF and follow sodium, now 130--check urine studies--may need renal if drops further--could be SIADH from lung process
constipation--noted on CT scan--start with dulcolax suppositories, miralax, colace--improved
Glaucoma--Continue home medication, latanoprost
hyperglycemia--likely from steroids, agree with SSI and HGB A1C check
DVT prophylaxis--Lovenox
code status--DNR
Original Note:
Today's Communication/Plan
-
.
Assessment / Plan
Assessment / Plan
1. Pneumonia, CAP versus HAP
-Potential pneumonia seen on CT of the chest in the ED.
-Given the patient's recent hospitalization this potentially hospital-acquired pneumonia.
-Vs. chronic MARITZA/pulmonary fibrosis
-Cefepime; vancomycin discontinued since MRSA neg
-Legionella/Strep Pneumo Urine Ag Neg
- Sputum Culture Pending
- Sputum AFB Pending
2. SIRS with a potential source of infection
- WBC 16.1 + tachycardia/tachypnea in ED --> WBC 11.5 yesterday --> 17.3 today (pt clinically improving, consider steroid induced leukocytosis)
-Blood cultures pending
-Lactate WNL
-Antibiotics as above
3. Acute hypoxic respiratory insufficiency
-Patient's baseline is 2 L; required 4-5L on admission; now requiring 2-3L
-Bronchiectasis noted on CT
-Continue DuoNeb treatment
-Start to taper the Decadron; now on Decadron q8
-Pulmonary consult appreciated
-COVID test negative
-Speech/nutrition consult for concerns for aspiration and pulmonary cachexia: reccs Level 6 soft/bite sized diet
-Home O2 Assessment Today
4. Hypochloremic hyponatremia
-132--> 130 --> 133
-F/u urine sodium, urine osmol, serum osmol results
- Continue to monitor BMP; Goal 135-145
- Consider renal if abnormal
5. Glaucoma
-Continue home medication, Latanoprost
6. DVT prophylaxis
-Lovenox
7. Hyperglycemia
- ACHS glucose checks
- SS Insulin Started
- Likely steroid induced hyperglycemia
8. Constipation
- improving. Continue to monitor BMs.
9. Agitation
- Likely steroid induced; steroid frequency lowered to q8
- Consider Risperidone PRN qhs if she becomes agitated again
Anticipated Discharge: Within 24 hours
Subjective/Interval History
-
Date of Service: May 07, 2024
History is limited secondary to dementia. Per nursing, at around 6 am this morning, the patient became combative. 1 dose of Haldol was given and soft wrist restraint was used. When I saw the patient 2 hours later, she was impatient but resting
comfortably. Upon revisit 3 hours after that, the patient was finishing up a breathing treatment, was pleasant, and conversant.
Objective Data
-
Labs:
Laboratory Results
05/07/24
08:52
WBC 17.3 H
Hgb 11.4 L
Hct 35.0 L
Plt Count 477 H
Sodium 133 L
Potassium 4.1
Chloride 96 L
Carbon Dioxide 25
BUN 18 H
Creatinine 0.5 L
Glucose 196 H
Calcium 9.5
Vital Signs:
Vital Signs
Temp Pulse Resp BP Pulse Ox
97.6 F 109 18 149/91 93
05/07/24 07:25 05/07/24 11:16 05/07/24 11:16 05/07/24 07:25 05/07/24 11:16
I&O
05/06/24 05/07/24 05/08/24
06:59 06:59 06:59
Intake Total 930 / 930
Output Total 200 / 200
Balance 930 / 930 -200 / -200
Review of Systems
-
Unable to obtain full review of systems at this time due to: Dementia
All other systems: Reviewed and negative
Physical Exam
-
General: Comfortable and Conversant
HEENT: Normocephalic and Atraumatic
Respiratory: Crackles
Cardiac: Regular Rhythm and S1/S2
GI: Soft and Nontender
Musculoskeletal: No Cyanosis and No Edema
Skin: Warm and Dry
Neuro: Awake, Alert and Oriented (to person)
Psych: Calm
Data Reviewed
-
Labs: Labs Reviewed by me and Discussed with Family
[2024-05-07 15:46] VITALS: BP 126/82
[2024-05-07 16:50] LABS: Glucose - Point of Care 151 mg/dl (70-99)
[2024-05-07] MEDS: NOVOLOG FLEXPEN-LOW RESISTANCE 1 UNITS SC (17:20)
[2024-05-07 17:47] LABS: Osmolality Urine 274 mOsm/kg (300-900)
[2024-05-07 17:53] LABS: Urine Sodium < 5 mmol/L (30-90)
[2024-05-07] MEDS: LOVENOX 30 MG SC (18:27)
[2024-05-07] MEDS: SEROQUEL 25 MG PO (20:45)
[2024-05-07] MEDS: XALATAN OPHTHALMIC SOLUTION 1 DROP BOTH EYES (20:46)
[2024-05-07 20:49] LABS: Glucose - Point of Care 306 mg/dl (70-99)
[2024-05-07 23:25] VITALS: BP 107/55
[2024-05-08] MEDS: DECADRON 4 MG IV (05:53)
[2024-05-08] MEDS: MAXIPIME 2000 MG IV ×2 (05:54→18:49)
[2024-05-08] MEDS: STERILE WATER FOR INJECTION 10 ML IV ×2 (05:54→18:49)
[2024-05-08 07:22] LABS: Hematocrit 30.3 % (37.0-47.0); Mean Corpuscular Hgb 27.2 pg (27.0-31.0); Mean Corpuscular Volume 82.6 fL (81.0-99.0); Mean Platelet Volume 9.3 fL (7.4-10.4); Platelet Count 404 10^3/uL (130-400); Red Blood Cell Count 3.67 10^6/uL (4.20-5.40); Red Cell Dist. Width 13.9 % (11.5-14.5)
[2024-05-08] MEDS: DUONEB 3 ML INH ×4 (07:47→18:13)
[2024-05-08] MEDS: ADVAIR HFA 45/21 MCG INHALER 2 PUFF INH ×2 (07:47→18:14)
[2024-05-08 07:53] LABS: ALT (SGPT) 20 U/L (0-35); AST (SGOT) 24 U/L (14-36); Alkaline Phosphatase 80 U/L (38-126); Blood Urea Nitrogen 19 mg/dl (7-17); Calcium 9.3 mg/dl (8.4-10.2); Carbon Dioxide 29 mmol/L (22-30); Chloride 97 mmol/L (98-107); Estimated Creatinine Clearance 44 ml/min; Glucose 161 mg/dl (70-99); Potassium 4.9 mmol/L (3.5-5.1); Sodium 134 mmol/L (135-145); Total Bilirubin 0.2 mg/dl (0.2-1.3); Total Protein 6.3 g/dl (6.3-8.2); eGFR > 60.00
[2024-05-08] MEDS: MUCINEX 600 MG PO ×2 (08:13→20:50)
[2024-05-08 08:23] LABS: Glucose - Point of Care 190 mg/dl (70-99)
[2024-05-08] MEDS: NOVOLOG FLEXPEN-LOW RESISTANCE 1 UNITS SC ×2 (08:25→13:13)
[2024-05-08 10:05] VITALS: BP 120/76
[2024-05-08 12:09] LABS: Glucose - Point of Care 187 mg/dl (70-99)
--- NOTE | 2024-05-08 13:56 | W.PN.HOSP.TC ---
Addendum entered and electronically signed by Shaye Damian MD 05/08/24 14:14:
I saw and evaluated the patient independently. I reviewed the resident�s note and agree with findings and plan as documented by Dr. Fish.
GENERAL: elderly, frail, cachectic, demented female in no apparent distress
HEENT: NC/AT 3L NC O2 in place
HEART: regular rate and rhythm, +S1, +S2
LUNGS : coarse crackles throughout anterior > posterior with faint wheezes throughout--improved
ABDOM: soft, tender RUQ and over lower ribs, nondistended, + bowel sounds
EXT: no cyanosis, clubbing, or edema
NEUROLOGIC: grossly intact with apparent dementia
sepsis (POA) likely due to Pneumonia, CAP versus HAP (pt recently hospitalized) vs progressive MARITZA (most likely)--Potential pneumonia seen on CT of the chest in the ED--apprec pulm, cont cefepime--urine legionella and strep neg as well as other
cultures -trend WBC (was on steroids last admission), lactate normal
Acute hypoxic respiratory failure on chronic hypoxic resp failure (due to 2L O2 dependent COPD)--due to CAP/HAP as above or progressive MARITZA with bronchiectasis noted on CT scan--stop IV steroids, apprec pulm--consideration for maintenance Zithromax
or doxy daily vs MWF--covid neg--no aspiration per VSE-- diet as per speech
sundowning/agitation--likely due to a combination of dementia (and out of her usual familiar environment) along with IV steroids (stopping)--PRN seroquel--hopeful d/c back to [place]--longer she is here, more confused she gets....
Hypochloremic hyponatremia--possibly due to dehydration vs SIADH from chronic lung issues--stop IVF and follow sodium, now 130--check urine studies--may need renal if drops further--could be SIADH from lung process
constipation--noted on CT scan--start with dulcolax suppositories, miralax, colace--improved
Glaucoma--Continue home medication, latanoprost
hyperglycemia--likely from steroids, agree with SSI and HGB A1C check
DVT prophylaxis--Lovenox
code status--DNR
Original Note:
Today's Communication/Plan
-
Steroids discontinued. Respiratory clinical improvement. Confusion likely secondary to steroids. Discharge planning back to NH vs NH via SNF. Consult CM.
Assessment / Plan
Assessment / Plan
1. Pneumonia, CAP versus HAP
-Potential pneumonia seen on CT of the chest in the ED.
-Given the patient's recent hospitalization this potentially hospital-acquired pneumonia.
-Vs. chronic MARITZA/pulmonary fibrosis
-Cefepime; vancomycin discontinued since MRSA neg
-Legionella/Strep Pneumo Urine Ag Neg
-Consider jail prophylaxis at discharge.
2. SIRS with a potential source of infection
- WBC 16.1 + tachycardia/tachypnea in ED --> WBC 11.5 --> 17.3 yesterday (pt clinically improving, consider steroid induced leukocytosis)
- WBC 9.0 today; elevated white count likely steroid induced.
-Blood cultures negative over course of admission
-Lactate WNL
-Antibiotics as above.
3. Acute hypoxic respiratory insufficiency
-Patient's baseline is 2 L; required 4-5L on admission; patient back to baseline over last 24 hours.
-Bronchiectasis noted on CT
-Continue DuoNeb treatment
-Steroids discontinued (see below)
-Pulmonary consult appreciated
-COVID test negative
-Speech/nutrition consult for concerns for aspiration and pulmonary cachexia: reccs Level 6 soft/bite sized diet
-Home O2 Assessment Today
4. Hypochloremic hyponatremia
-132--> 130 --> 133 --> 134 (continues to improve)
- Continue to monitor BMP; Goal 135-145
- Consider renal if abnormal
5. Glaucoma
-Continue home medication, Latanoprost
6. DVT prophylaxis
-Lovenox
7. Hyperglycemia
- ACHS glucose checks
- SS Insulin Started
- Likely steroid induced hyperglycemia
- improved today POC glucose 180-190
8. Constipation
- improving. Continue to monitor BMs.
9. Agitation/Confusion
- Pt less agitated today; seems a little more confused.
- Likely steroid induced; steroid treatment discontinued as patient back to respiratory baseline.
Anticipated Discharge: Within 24 hours
Subjective/Interval History
-
Date of Service: May 08, 2024
History is limited secondary to dementia. Per the son, patient seems more confused today than she did yesterday.
Objective Data
-
Labs:
Laboratory Results
05/08/24
07:00
WBC 9.0
Hgb 10.0 L
Hct 30.3 L
Plt Count 404 H
Sodium 134 L
Potassium 4.9
Chloride 97 L
Carbon Dioxide 29
BUN 19 H
Creatinine 0.6
Glucose 161 H
Calcium 9.3
Total Bilirubin 0.2
AST 24
ALT 20
Alkaline Phosphatase 80
Vital Signs:
Vital Signs
Temp Pulse Resp BP Pulse Ox
97.6 F 105 16 120/76 94
05/08/24 10:05 05/08/24 11:42 05/08/24 11:42 05/08/24 10:05 05/08/24 11:42
I&O
05/07/24 05/08/24 05/09/24
06:59 06:59 06:59
Intake Total 840 / 840
Output Total 200 / 200
Balance -200 / -200 840 / 840
Review of Systems
-
Unable to obtain full review of systems at this time due to: Dementia
Physical Exam
-
General: Conversant, Cachectic and Other (elderly, frail)
HEENT: Normocephalic and Atraumatic
Respiratory: Crackles, Non Labored Respirations and Other (normal work of breathing on 2L O2)
Cardiac: Regular Rhythm and S1/S2
GI: Soft and Nontender
Musculoskeletal: No Cyanosis and No Edema
Skin: Warm
Neuro: Awake and Alert
Psych: Other (slightly confused but calm; no agitation compared to yesterday. )
--- NOTE | 2024-05-08 15:19 | W.PN.PUL3 ---
Today's Communication / Plan
-
Continue cefepime while in the hospital, if plans for discharge complete Levaquin 500 for total of 7 days of antibiotics.
Continue secretion clearance interventions
Follow culture
Continue inhaler
Continue nebulizer for secretion clearance
Steroids discontinued. Continue to observe.
Aspiration precautions
Assessment
-
Assessment: 84-year-old female former tobacco smoker with a PMHx of COPD, restrictive lung defect, pulmonary MAC, bronchiectasis, dementia, GERD and glaucoma who presents with right side abdominal pain from [place] run. Patient is a poor historian due
to Alzheimer's dementia with confusion. On the morning prior to arrival, patient was endorsing right upper abdominal pain/right lower rib pain. She normally is on 2 L/min of oxygen but had required up to 4 L/min and the patient had a cough. In
the ER she required up to 5 L/min to reach saturations of 90%. Initial CXR showed no convincing evidence for an acute cardiopulmonary process. Abdominal ultrasound was unremarkable and CTA chest/CT abdomen/pelvis showed no evidence for a central
acute PE, with right lower lobe opacification concerning for pneumonia and/or subsegmental atelectasis. Also widespread chronic interstitial markings with areas of bronchiectasis. CT abdomen/pelvis was unremarkable with no etiology of her pain.
In the ER she was given DuoNebs, Solu-Medrol, cefepime/IV vancomycin and admitted to telemetry under the hospitalist. Pulmonary consulted for additional management/recommendations.
Chronic conditions STAFF PSYCHOLOGIST: Reported history of COPD, GERD, glaucoma, former tobacco use, reported Hx of MARITZA, history of bronchiectasis, advanced dementia/Alzheimer's
Impression:
#Right lower lobe pneumonia/HAP (new compared to recent CTA chest on 04/28/2024) with small parapneumonic effusion
#Sepsis without shock due to above
#Acute on chronic respiratory failure with hypoxia on supplemental oxygen due to above
#Chronic anemia (baseline Hb: 11.5�13g/dL)
#Thrombocytosis, likely reactive given acute illness
#Hypochloremia, hyponatremia
#Hyperglycemia
#AMS with confusion - possibly steroid induced in setting of dementia
#Pulmonary bronchiectasis in RUL, medial RML, lingula, and bilateral lower lobes
#Hx of severe COPD with mosaic attenuation likely due to air trapping on W[place] inhub 100mcg with prn albuterol MDI at home
#Severe restrictive lung defect (T% predicted via review of prior notes)
#Constipation
#Former tobacco smoker
Plan:
- There is new opacification with air bronchograms in the posterior right lower lobe and area of atelectasis in the anterolateral right lower lobe, suspicious for pneumonia with atelectasis; also tiny right lower lobe pleural effusion likely
parapneumonic
- Continue with broad-spectrum antibiotics with cefepime while here in the hospitalDay 2 of antibiotics ; MRSA swab negative hence IV vancomycin was DC'd --> would give total of 7 days of ABx-plan to transition to oral Levaquin 500 mg if patient to
be discharged.
-Blood cultures negative to date.
- Urine antigens for legionella and Strep PNA both negative
- Check sputum Cx-has not been able to provide adequate 05/08/2024
Patient does have history of MARITZA. This could be addressed in the outpatient setting.-Does have chronic changes on the CAT scan.
-currently off supplemental oxygen.
Right-sided pleural effusion is tiny and too small to safely perform thoracentesis; continue to monitor --> recheck CXR 05/09/2024
Not bronchospastic on exam 05/08/2024.
- Continue with Advair 45mcg and on 05/06 and while in the hospital DuoNebs QID with prn nebulized bronchodilators for breakthrough symptoms
- Continue systemic steroids -steroids discontinued 05/08/2024. Observe.
- Mucinex
- Aspiration precautions
- Incentive spirometer encouraged 10x per hour for at least 4 hrs a day, encourage
- Agitation management per primary team
-
- Maintain euglycemia with goal BG >100 and <180
- DVT ppx: LMWH
Of note, she follows with pulmonary at [facility] with Dr. Jeong. She has a history of severe COPD with severe restrictive lung disease and bronchiectasis with history of tree-in-bud nodular opacities and pulmonary MAC. She is aware of her serious
lung disease and she had opted for conservative treatment. Advised to continue follow-up with [facility] following discharge from here.
Pulmonary service will continue to follow along.
Data:
CTA chest, CT abdomen/pelvis with IV contrast 05/05/2024:
In comparison to very recent prior study there are again seen no central pulmonary arterial filling defects to suggest pulmonary embolism.
Widespread bilateral prominent likely chronic interstitial markings are again seen with areas of bronchiectasis.
There is new right lower lobe opacification compatible with subsegmental atelectasis and/or pneumonia and tiny right pleural effusion.
Evaluation of the soft tissues of the abdomen and pelvis markedly limited by beam hardening artifact from the patient's bilateral upper extremities, lack of oral/enteric contrast and marked paucity of intra-abdominal/pelvic fat, without intestinal
obstruction or free air. Bowel pathology cannot be excluded.
Large volume stool in the rectum.
RUQ abdominal ultrasound 05/05/2024: Essentially unremarkable abdominal ultrasound, as detailed above. Gallbladder poorly visualized and may be contracted.
Subjective Data
-
Date of Service:
Date of Service: May 08, 2024
Chief Complaint: Pulmonary Follow Up
Subjective:
Stable overnight
Continues to report coughing
Denies hemoptysis
Wheezing improved
Review of Systems
General: Fever (n)
Cardiopulmonary: Dyspnea (n)
GI: Abdominal Pain (n)
Objective Data
Data Reviewed
Vital Signs / I&O / Oxygen:
Vital Signs
Temp Pulse Resp BP Pulse Ox
97.6 F 105 16 120/76 94
05/08/24 10:05 05/08/24 11:42 05/08/24 11:42 05/08/24 10:05 05/08/24 11:42
Intake and Output
05/07/24 05/08/24 05/09/24
06:59 06:59 06:59
Intake Total 840 / 840
Output Total 200 / 200
Balance -200 / -200 840 / 840
SaO2 94
Nasal Cannula flow liters per 2
minute
Physical Exam
General: Respiratory Distress (negative), Comfortable, Chills (negative), Sweats (negative) and Other (Confusion/slight agitation)
HEENT: Normocephalic and Anicteric
Cardiovascular: Peripheral Edema (negative) and Other (Difficult to auscultate cardiac sounds given loud rhonchi/rales heard from lungs)
Respiratory: Wheeze (negative), Crackles (Bilaterally (R >L)) and Rhonchi (Bilaterally (R >L))
GI: Soft, Non Distended, Non Tender and Normal Bowel Sounds
Neurology: Awake, Alert and Other (Confused)
Skin: Warm, Dry, Cyanosis (negative) and Jaundice (negative)
Labs/Micro/Reports
Lab Data
05/08/24 07:00
05/08/24 07:00
Microbiology
05/05/24 17:50 Blood/Venous Blood Culture - Preliminary
No Growth in 48 hours- Final report to follow
05/05/24 17:50 Blood/Venous Blood Culture - Preliminary
No Growth in 48 hours- Final report to follow
05/06/24 18:53 Urine Legionella Urinary Antigen - Final
Negative for Legionella pneumophila Serogroup 1 antigen.
A negative result does not rule out the possiblity of
Legionella infection due to other serogroups or species of
Legionella. Clinical correlation is recommended.
05/06/24 18:53 Urine Streptococcus pneumoniae Antigen (M - Final
Negative for Streptococcus pneumoniae antigen.
A negative result does not exclude infection with
Streptococcus pneumoniae. Clinical correlation is
recommended.
05/06/24 09:44 Nose Nasal Screen MRSA (PCR) - Final
MRSA not detected - performed by PCR methodology.
[2024-05-08 15:25] VITALS: BP 113/47
[2024-05-08 17:03] LABS: Glucose - Point of Care 214 mg/dl (70-99)
[2024-05-08] MEDS: LOVENOX 30 MG SC (17:35)
[2024-05-08] MEDS: NOVOLOG FLEXPEN-LOW RESISTANCE 2 UNITS SC (17:38)
[2024-05-08] MEDS: SEROQUEL 25 MG PO (20:50)
[2024-05-08] MEDS: XALATAN OPHTHALMIC SOLUTION 1 DROP BOTH EYES (20:51)
[2024-05-08 21:16] LABS: Glucose - Point of Care 133 mg/dl (70-99)
[2024-05-08] MEDS: SEROQUEL 12.5 MG PO (23:08)
--- NOTE | 2024-05-09 02:00 | PTCARENOTE ---
Pt placed in 4 point soft restraints, 4 side rails. RN called into room when went alerted that pt was trying to rip out her IV. IV site still required for treatment. Pt is confused in thought and speech. While attempting to secure IV site Pt started
grabbing and digging her nails into staff. More staff entered to assist. Pt became increasingly agitated and attempted to bite and hit, kick, and blowing in the face of staff. While in restraints pt managed to remove o2 tubing and wrapped it around
her hand so tight it was cutting off circulation. O2 currently not on, pt has been 95 on 2L. Will monitor and attempt replaced when pt is in a calmer state. TANYA Barboza aware.
[2024-05-09] MEDS: MAXIPIME 2000 MG IV (06:00)
[2024-05-09] MEDS: STERILE WATER FOR INJECTION 10 ML IV (06:01)
[2024-05-09 06:24] LABS: Hematocrit 34.8 % (37.0-47.0); Hemoglobin 11.3 g/dL (12.0-16.0); Mean Corp Hgb Conc. 32.5 g/dL (33.0-37.0); Mean Corpuscular Hgb 27.2 pg (27.0-31.0); Mean Corpuscular Volume 83.9 fL (81.0-99.0); Mean Platelet Volume 9.3 fL (7.4-10.4); Platelet Count 464 10^3/uL (130-400); Red Blood Cell Count 4.15 10^6/uL (4.20-5.40); White Blood Cell Count 14.1 10^3/uL (4.8-10.8)
[2024-05-09 06:48] LABS: Blood Urea Nitrogen 22 mg/dl (7-17); Calcium 9.5 mg/dl (8.4-10.2); Carbon Dioxide 27 mmol/L (22-30); Chloride 96 mmol/L (98-107); Estimated Creatinine Clearance 38 ml/min; Glucose 109 mg/dl (70-99); Potassium 4.7 mmol/L (3.5-5.1); Sodium 135 mmol/L (135-145); eGFR > 60.00
[2024-05-09 07:00] VITALS: BP 150/89
[2024-05-09 07:28] LABS: Glucose - Point of Care 102 mg/dl (70-99)
[2024-05-09] MEDS: ADVAIR HFA 45/21 MCG INHALER 2 PUFF INH ×2 (07:58→17:47)
[2024-05-09] MEDS: DUONEB 3 ML INH ×2 (07:58→11:44)
[2024-05-09] MEDS: MUCINEX 600 MG PO ×2 (08:10→22:17)
[2024-05-09] MEDS: NOVOLOG FLEXPEN-LOW RESISTANCE SC ×3 (08:10→16:29)
[2024-05-09 11:10] LABS: Glucose - Point of Care 84 mg/dl (70-99)
--- NOTE | 2024-05-09 12:38 | W.PN.HOSP.TC ---
Addendum entered and electronically signed by Taras Fish DO, Resident 05/09/24 15:42:
Pt seen by pulmonary and psych;
Psych: started standing order of Seroquel 25mg @ 1600, with 25mg PRN for agitation.
Pulm: patient will be transitioned to PO Levaquin at discharge.
Considering patient is having agitation/confusion episodes, considered the possibilty of Cefepime-related AMS; discontinued the Cefepime. Pt to have a baseline EKG in the morning to assess QTc and then will start the patient on her outpatient dose
of Levaquin while she awaits placement.
Addendum entered and electronically signed by Shaye Damian MD 05/09/24 13:01:
I saw and evaluated the patient independently. I reviewed the resident�s note and agree with findings and plan as documented by Dr. Fish.
GENERAL: elderly, frail, cachectic, demented female in no apparent distress
HEENT: NC/AT 3L NC O2 in place
HEART: regular rate and rhythm, +S1, +S2
LUNGS : coarse crackles throughout anterior > posterior with faint wheezes throughout--improved
ABDOM: soft, tender RUQ and over lower ribs, nondistended, + bowel sounds
EXT: no cyanosis, clubbing, or edema
NEUROLOGIC: grossly intact with apparent dementia
sepsis (POA) likely due to Pneumonia, CAP versus HAP (pt recently hospitalized) vs progressive MARITZA (most likely)--Potential pneumonia seen on CT of the chest in the ED--apprec pulm, cont cefepime--urine legionella and strep neg as well as other
cultures -trend WBC (was on steroids last admission), lactate normal
Acute hypoxic respiratory failure on chronic hypoxic resp failure (due to 2L O2 dependent COPD)--due to CAP/HAP as above or progressive MARITZA with bronchiectasis noted on CT scan--stopped IV steroids, apprec pulm--consideration for maintenance
Zithromax or doxy daily vs MWF--covid neg--no aspiration per VSE-- diet as per speech--will need f/u with outpt pulm at [facility]
sundowning/agitation--likely due to a combination of dementia (and out of her usual familiar environment) along with IV steroids (stopped)--PRN seroquel--hopeful d/c back to [place]--longer she is here, more confused she gets....had another episode
requiring restraints and more seroquel....consult psych for med help
Hypochloremic hyponatremia--resolved---possibly due to dehydration vs SIADH from chronic lung issues--stop IVF and follow sodium--could be SIADH from chronic lung process
constipation--noted on CT scan--start with dulcolax suppositories, miralax, colace--improved
Glaucoma--Continue home medication, latanoprost
hyperglycemia--likely from steroids, agree with SSI and HGB A1C check
DVT prophylaxis--Lovenox
code status--DNR
Original Note:
Today's Communication/Plan
-
.
Assessment / Plan
Assessment / Plan
1. Pneumonia, CAP versus HAP
-Potential pneumonia seen on CT of the chest in the ED.
-Given the patient's recent hospitalization this potentially hospital-acquired pneumonia.
-Vs. chronic MARITZA/pulmonary fibrosis
-Cefepime continued while in hospital; per pulm recs: switch to Levaquin 500 PO on discharge for total of 7 days of abx.
-Legionella/Strep Pneumo Urine Ag Neg
-Consider intermediate prophylaxis at discharge.
2. SIRS with a potential source of infection
- WBC 16.1 + tachycardia/tachypnea in ED --> WBC 11.5 --> 17.3 (pt clinically improving, consider steroid induced leukocytosis)
- WBC 14.1 today; elevated white count likely steroid induced.
-Blood cultures negative over course of admission
-Lactate WNL
-Antibiotics as above.
3. Acute hypoxic respiratory insufficiency
-Patient's baseline is 2 L; required 4-5L on admission; patient back to baseline over last 48 hours. Ready for discharge clinically, await CM.
-Bronchiectasis noted on CT
-Continue DuoNeb treatment while still in hospital
-Steroids discontinued (see below)
-Pulmonary consult appreciated
-COVID test negative
-Speech/nutrition consult for concerns for aspiration and pulmonary cachexia: reccs Level 6 soft/bite sized diet
-Home O2 Assessment
4. Hypochloremic hyponatremia
-132--> 130 --> 133 --> 134--> 135 (continues to improve)
- Continue to monitor BMP; Goal 135-145
- Consider renal if abnormal
5. Glaucoma
-Continue home medication, Latanoprost
6. DVT prophylaxis
-Lovenox
7. Hyperglycemia
- ACHS glucose checks
- SS Insulin Started
- Likely steroid induced hyperglycemia
- improved today POC glucose 180-190
8. Constipation
- improving. Continue to monitor BMs.
9. Agitation/Confusion
- Pt had an episode of agitation last night. Pt needs to return to [place], longer she stays here the worse the episodes of owning will become. Medically ready to be d/c to [facility] or SNF; awaiting placement.
- Likely steroid induced; steroid treatment discontinued as patient back to respiratory baseline.
Anticipated Discharge: Within 24 hours
Subjective/Interval History
-
Date of Service: May 09, 2024
History limited secondary to dementia. Family not at bedside today. Per nursing, patient became agitated overnight and required restraints.
Objective Data
-
Labs:
Laboratory Results
05/09/24
05:52
WBC 14.1 H
Hgb 11.3 L
Hct 34.8 L
Plt Count 464 H
Sodium 135
Potassium 4.7
Chloride 96 L
Carbon Dioxide 27
BUN 22 H
Creatinine 0.7
Glucose 109 H
Calcium 9.5
Vital Signs:
Vital Signs
Temp Pulse Resp BP Pulse Ox
97.7 F 94 16 150/89 93
05/09/24 07:00 05/09/24 11:49 05/09/24 11:49 05/09/24 07:00 05/09/24 11:49
I&O
05/08/24 05/09/24 05/10/24
06:59 06:59 06:59
Intake Total 840 / 840 720 / 720
Balance 840 / 840 720 / 720
Review of Systems
-
Unable to obtain full review of systems at this time due to: Dementia
Physical Exam
-
General: No Apparent Distress, Comfortable, Conversant and Other (eating breakfast without complaints; pleasant this morning. )
HEENT: Normocephalic and Atraumatic
Respiratory: Crackles
Cardiac: Regular Rhythm and S1/S2
GI: Soft and Nontender
Musculoskeletal: No Edema
Skin: Warm and Dry
Neuro: Awake and Alert
Data Reviewed
-
Labs: Labs Reviewed by me
[2024-05-09 14:41] VITALS: BP 144/76
--- NOTE | 2024-05-09 14:49 | CON.MD ---
Consultation - Medical
-
84 y/o resident of [place] was re-admitted on 05/05/24 with abdominal pain and increased respiratory failure She is now medically improved and could be discharged from a medical perspective, but has become increasingly agitated in the
evenings requiring restraint and use of PRN Seroquel. Was given 25 mg. at 20:45 on 05/07 and on 05/08 (yesterday) 25 mg. at 20:50 and additional 12.5 mg. at 23:08. Psychiatry was consulted for management to allow for return to [place] or a SNF.
Chart was reviewed. CT of the Head without contrast on 04/28 had no acute findings. Reports states: The ventricles are normal in size, configuration, and position for age. There is no intra- or extra-axial mass, hemorrhage, or fluid collection.
No areas of abnormal mass effect or attenuation are noted. There is mild to moderate subcortical, deep, and periventricular white matter low-attenuation, compatible with changes of chronic small vessel ischemic disease and asymmetric on the left.
Mild bilateral sphenoid sinus mucosal thickening. No depressed calvarial fracture.
Her BP today is 144/76, P 111, RR 18 and O2 Sat 94% on 2L O2 (her usual).
Pt. was unable to give much useful information. She did not know she was at a hospital, when told it is [facility] this did not refresh her memory, and could not give the year of her . She did not recall the name of where she lives.
Has difficulty with word-finding using some approximations. Speech is not slurred. Hearing seems to be adequate. She is pleasant and not agitated or angry. She did try to get out of bed when a phone was ringing outside of her room. No evidence
of hallucinating or having paranoid ideation. Does not seem to recall becoming agitated in the evenings. Had no complaint about her care.
Her nephew was in the room with her and provided some additional information. He sees her mentation as very much deteriorated just during this hospitalization. 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 Has no children. Nephew apparently is decision-maker. Unknown if there was any history of mental illness.
Alzheimer's Disease with Behavioral Disturbance
Possible adverse effects of corticosteroids
Plan: As she has needed PRN Seroquel and restraints for the past two nights, I will order a standing order of Seroquel 25 mg. at 16:00 to try to get ahead of the agitation. Will continue the PRN dose as well. Hopefully, after she returns to
[place] a trial off of Seroquel can be tried. I explained to her nephew how benzodiazepines would be a poor choice because of her pulmonary compromise and potential increased risk of falls and confusion.
--- NOTE | 2024-05-09 15:02 | W.PN.PUL3 ---
Today's Communication / Plan
-
Continue inhalers
Secretion clearance interventions
Complete 7 days of antibiotics currently on cefepime, when ready for discharge may transition to Levaquin.
Monitor off steroids-not bronchospastic on exam 05/09/2024
Delirium management per primary team
Assessment
-
Assessment: 84-year-old female former tobacco smoker with a PMHx of COPD, restrictive lung defect, pulmonary MAC, bronchiectasis, dementia, GERD and glaucoma who presents with right side abdominal pain from [place]. Patient is a poor historian due
to Alzheimer's dementia with confusion. On the morning prior to arrival, patient was endorsing right upper abdominal pain/right lower rib pain. She normally is on 2 L/min of oxygen but had required up to 4 L/min and the patient had a cough. In
the ER she required up to 5 L/min to reach saturations of 90%. Initial CXR showed no convincing evidence for an acute cardiopulmonary process. Abdominal ultrasound was unremarkable and CTA chest/CT abdomen/pelvis showed no evidence for a central
acute PE, with right lower lobe opacification concerning for pneumonia and/or subsegmental atelectasis. Also widespread chronic interstitial markings with areas of bronchiectasis. CT abdomen/pelvis was unremarkable with no etiology of her pain.
In the ER she was given DuoNebs, Solu-Medrol, cefepime/IV vancomycin and admitted to telemetry under the hospitalist. Pulmonary consulted for additional management/recommendations.
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
Impression:
#Right lower lobe pneumonia/HAP (new compared to recent CTA chest on 04/28/2024) with small parapneumonic effusion
#Sepsis without shock due to above
#Acute on chronic respiratory failure with hypoxia on supplemental oxygen due to above
#Chronic anemia (baseline Hb: 11.5�13g/dL)
#Thrombocytosis, likely reactive given acute illness
#Hypochloremia, hyponatremia
#Hyperglycemia
#AMS with confusion - possibly steroid induced in setting of dementia
#Pulmonary bronchiectasis in RUL, medial RML, lingula, and bilateral lower lobes
#Hx of severe COPD with mosaic attenuation likely due to air trapping on Wixela inhub 100mcg with prn albuterol MDI at home
#Severe restrictive lung defect (T% predicted via review of prior notes)
#Constipation
#Former tobacco smoker
Plan:
- There is new opacification with air bronchograms in the posterior right lower lobe and area of atelectasis in the anterolateral right lower lobe, suspicious for pneumonia with atelectasis; also tiny right lower lobe pleural effusion likely
parapneumonic
-Continue cefepime day 3 of antibiotics.
MRSA swab negative hence IV vancomycin was DC'd --> would give total of 7 days of ABx-plan to transition to oral Levaquin 500 mg if patient to be discharged.
-Blood cultures negative to date.
- Urine antigens for legionella and Strep PNA both negative
- Check sputum Cx-has not been able to provide adequate 05/08/2024
Patient does have history of MARITZA. This could be addressed in the outpatient setting.-Does have chronic changes on the CAT scan.
-currently off supplemental oxygen.
Right-sided pleural effusion is tiny and too small to safely perform thoracentesis; continue to monitor --> chest x-ray 05/09/2024. Chronic bibasilar changes. Stable compared to prior. Stable minimal pleural effusion.
Follow-up with chest x-ray on as-needed basis
Not bronchospastic on exam 05/09/2024.
- Continue with Advair 45mcg and on 05/06 and while in the hospital DuoNebs QID with prn nebulized bronchodilators for breakthrough symptoms
- Systemic steroids -steroids discontinued 05/08/2024-confusion. Observe.
- Mucinex
- Aspiration precautions
Due to chronic bronchiectasis may consider low-dose macrolide therapy in the outpatient setting. For anti-inflammatory properties and prevention of acute exacerbation.
- Incentive spirometer encouraged 10x per hour for at least 4 hrs a day, encourage
-Delirium/agitation management per primary team
-
- Maintain euglycemia with goal BG >100 and <180
- DVT ppx: LMWH
Of note, she follows with pulmonary at [facility] with Dr. Jeong. She has a history of severe COPD with severe restrictive lung disease and bronchiectasis with history of tree-in-bud nodular opacities and pulmonary MAC. She is aware of her serious
lung disease and she had opted for conservative treatment. Advised to continue follow-up with [facility] following discharge from here.
Pulmonary service will continue to follow along.
I agree with discharge planning as soon as possible.
-----
Data:
CTA chest, CT abdomen/pelvis with IV contrast 05/05/2024:
In comparison to very recent prior study there are again seen no central pulmonary arterial filling defects to suggest pulmonary embolism.
Widespread bilateral prominent likely chronic interstitial markings are again seen with areas of bronchiectasis.
There is new right lower lobe opacification compatible with subsegmental atelectasis and/or pneumonia and tiny right pleural effusion.
Evaluation of the soft tissues of the abdomen and pelvis markedly limited by beam hardening artifact from the patient's bilateral upper extremities, lack of oral/enteric contrast and marked paucity of intra-abdominal/pelvic fat, without intestinal
obstruction or free air. Bowel pathology cannot be excluded.
Large volume stool in the rectum.
RUQ abdominal ultrasound 05/05/2024: Essentially unremarkable abdominal ultrasound, as detailed above. Gallbladder poorly visualized and may be contracted.
Subjective Data
-
Date of Service:
Date of Service: May 09, 2024
Chief Complaint: Pulmonary Follow Up
Subjective:
Intermittently confused
Denies any significant pulmonary complaints
Continues to have chronic coughing, no hemoptysis or increased purulent sputum production.
Review of Systems
General: Fever (n)
Cardiopulmonary: Dyspnea (n), Cough and Sputum Production
GI: Abdominal Pain (n)
Objective Data
Data Reviewed
Vital Signs / I&O / Oxygen:
Vital Signs
Temp Pulse Resp BP Pulse Ox
97.4 F 111 18 144/76 94
05/09/24 14:41 05/09/24 14:41 05/09/24 14:41 05/09/24 14:41 05/09/24 14:41
Intake and Output
05/08/24 05/09/24 05/10/24
06:59 06:59 06:59
Intake Total 840 / 840 720 / 720
Balance 840 / 840 720 / 720
SaO2 94
Nasal Cannula flow liters per 2
minute
Physical Exam
General: Respiratory Distress (negative), Comfortable, Chills (negative), Sweats (negative) and Other (Confusion/slight agitation)
HEENT: Normocephalic and Anicteric
Cardiovascular: Peripheral Edema (negative) and Other (Difficult to auscultate cardiac sounds given loud rhonchi/rales heard from lungs)
Respiratory: Wheeze (negative), Crackles (Bilaterally (R >L)) and Rhonchi (Bilaterally (R >L))
GI: Soft, Non Distended, Non Tender and Normal Bowel Sounds
Neurology: Awake, Alert and Other (Confused)
Skin: Warm, Dry, Cyanosis (negative) and Jaundice (negative)
Labs/Micro/Reports
Lab Data
05/09/24 05:52
05/09/24 05:52
Microbiology
05/05/24 17:50 Blood/Venous Blood Culture - Preliminary
No Growth in 72 hours- Final report to follow
05/05/24 17:50 Blood/Venous Blood Culture - Preliminary
No Growth in 72 hours- Final report to follow
05/06/24 18:53 Urine Legionella Urinary Antigen - Final
Negative for Legionella pneumophila Serogroup 1 antigen.
A negative result does not rule out the possiblity of
Legionella infection due to other serogroups or species of
Legionella. Clinical correlation is recommended.
05/06/24 18:53 Urine Streptococcus pneumoniae Antigen (M - Final
Negative for Streptococcus pneumoniae antigen.
A negative result does not exclude infection with
Streptococcus pneumoniae. Clinical correlation is
recommended.
05/06/24 09:44 Nose Nasal Screen MRSA (PCR) - Final
MRSA not detected - performed by PCR methodology.
[2024-05-09 15:48] VITALS: BP 143/79; PULSE 112; O2SAT 94
[2024-05-09] MEDS: SEROQUEL 25 MG PO ×2 (16:17→22:22)
[2024-05-09 16:21] LABS: Glucose - Point of Care 102 mg/dl (70-99)
[2024-05-09] MEDS: LOVENOX 30 MG SC (17:09)
--- NOTE | 2024-05-09 20:15 | PTCARENOTE ---
Bed alarm ringing and med sitter calling this RN.Pt attempting to get OOB.Pt confused,drowsy and disoriented x3.Pt unable to follow verbal redirection,removing nasal 02 ,laying sideways in the bed with head in between the side rails.Pt combative and
swinging/hitting staff with hands/arms when attempting to turn pt in bed.Instructed TANYA Young on above note via verbal phone call.Received orders for b/l soft wrist restraints with 4siderails up and @2013 applied to patient.
[2024-05-09 21:41] LABS: Glucose - Point of Care 130 mg/dl (70-99)
[2024-05-09] MEDS: XALATAN OPHTHALMIC SOLUTION 1 DROP BOTH EYES (22:17)
[2024-05-09 23:00] VITALS: BP 151/79
--- NOTE | 2024-05-10 | W.PN.UPDATE ---
Update Note
Progress Note Update
Patient increasingly agitated with flailing of arms/legs. Seroquel doses given as directed. soft 4 points with 4 rails added for safety.
--- NOTE | 2024-05-10 02:20 | PTCARENOTE ---
@2357 Instructed TANYA Young ,via TT, Seroquel 25 po prn administered @ 2221.Pt is wide awake yelling ,trying to get OOB,swinging legs over the rails and inching down in the bed swinging legs off the bed.Pt remains disoriented x3,unable to
follow verbal redirection and attempts to kick staff when staff is close to pt.@2359; Received order for soft 4 point restraints and 4side rails and applied to pt. @0200;Pt appears to be sleeping and comfortable in restraints.
[2024-05-10 07:28] VITALS: BP 138/66
[2024-05-10 07:37] LABS: Glucose - Point of Care 105 mg/dl (70-99)
[2024-05-10] MEDS: ADVAIR HFA 45/21 MCG INHALER 2 PUFF INH ×2 (07:43→20:06)
[2024-05-10] MEDS: NOVOLOG FLEXPEN-LOW RESISTANCE SC ×3 (08:13→16:48)
[2024-05-10] MEDS: MUCINEX 600 MG PO ×2 (08:26→21:40)
[2024-05-10 08:30] LABS: Hematocrit 34.7 % (37.0-47.0); Hemoglobin 11.1 g/dL (12.0-16.0); Mean Corpuscular Hgb 26.9 pg (27.0-31.0); Mean Corpuscular Volume 84.2 fL (81.0-99.0); Mean Platelet Volume 9.5 fL (7.4-10.4); Platelet Count 412 10^3/uL (130-400); Red Blood Cell Count 4.12 10^6/uL (4.20-5.40); Red Cell Dist. Width 13.9 % (11.5-14.5); White Blood Cell Count 12.2 10^3/uL (4.8-10.8)
[2024-05-10 09:01] LABS: Blood Urea Nitrogen 15 mg/dl (7-17); Calcium 8.8 mg/dl (8.4-10.2); Carbon Dioxide 30 mmol/L (22-30); Chloride 94 mmol/L (98-107); Estimated Creatinine Clearance 44 ml/min; Glucose 96 mg/dl (70-99); Potassium 4.1 mmol/L (3.5-5.1); Sodium 131 mmol/L (135-145); eGFR > 60.00
--- NOTE | 2024-05-10 09:12 | W.PN.PUL.V3 ---
Today's Communication / Plan
-
Delirium, sundowning and TME treatment per primary service and psychiatry
Antibiotics-total 7-10 days
Aspiration precautions
Inhalers and nebulizers as needed
Outpatient pulmonary evaluation-sees Dr. Jeong
Assessment
-
Assessment: 84-year-old female former tobacco smoker with a PMHx of COPD, restrictive lung defect, pulmonary MAC, bronchiectasis, dementia, GERD and glaucoma who presents with right side abdominal pain from [place] run. Patient is a poor historian due
to Alzheimer's dementia with confusion. On the morning prior to arrival, patient was endorsing right upper abdominal pain/right lower rib pain. She normally is on 2 L/min of oxygen but had required up to 4 L/min and the patient had a cough. In
the ER she required up to 5 L/min to reach saturations of 90%. Initial CXR showed no convincing evidence for an acute cardiopulmonary process. Abdominal ultrasound was unremarkable and CTA chest/CT abdomen/pelvis showed no evidence for a central
acute PE, with right lower lobe opacification concerning for pneumonia and/or subsegmental atelectasis. Also widespread chronic interstitial markings with areas of bronchiectasis. CT abdomen/pelvis was unremarkable with no etiology of her pain.
In the ER she was given DuoNebs, Solu-Medrol, cefepime/IV vancomycin and admitted to telemetry under the hospitalist. Pulmonary consulted for additional management/recommendations.
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
Impression:
#Right lower lobe pneumonia/HAP (new compared to recent CTA chest on 04/28/2024) with small parapneumonic effusion
#Sepsis without shock due to above
#Acute on chronic respiratory failure with hypoxia on supplemental oxygen due to above
#Chronic anemia (baseline Hb: 11.5�13g/dL)
#Thrombocytosis, likely reactive given acute illness
#Hypochloremia, hyponatremia
#Hyperglycemia
#AMS with confusion - possibly steroid induced in setting of dementia
#Pulmonary bronchiectasis in RUL, medial RML, lingula, and bilateral lower lobes
#Hx of severe COPD with mosaic attenuation likely due to air trapping on [place] inhub 100mcg with prn albuterol MDI at home
#Severe restrictive lung defect (T% predicted via review of prior notes)
#Constipation
#Former tobacco smoker
Toxic metabolic encephalopathy
Plan:
Respiratory status relatively stable
Continue supplemental oxygen
Aspiration precautions
Incentive spirometry if able to participate
Advair
Nebulizers as needed
Mucolytic's
Chest x-ray 05/09/2024-interstitial markings throughout both lungs more prominent right and left stable compared to prior study and consistent with pulmonary fibrosis
Cultures reviewed
Empiric antibiotics-was on cefepime, vancomycin discontinued-now on oral levofloxacin-treat total 7-10 days
Right-sided pleural effusion is tiny and too small to safely perform thoracentesis; continue to monitor --> chest x-ray 05/09/2024. Chronic bibasilar changes. Stable compared to prior. Stable minimal pleural effusion.
Due to chronic bronchiectasis may consider low-dose macrolide therapy in the outpatient setting. For anti-inflammatory properties and prevention of acute exacerbation.
Monitor mental status
Seroquel added
Psychiatry evaluation ongoing
Monitor blood sugar
Insulin supplementation as needed
DVT prophylaxis-on Lovenox
Nutrition with aspiration precautions
Early mobilization
Of note, she follows with pulmonary at [facility] with Dr. Jeong. She has a history of severe COPD with severe restrictive lung disease and bronchiectasis with history of tree-in-bud nodular opacities and pulmonary MAC. She is aware of her serious
lung disease and she had opted for conservative treatment. Advised to continue follow-up with [facility] following discharge from here.
-----
Data:
CTA chest, CT abdomen/pelvis with IV contrast 05/05/2024:
In comparison to very recent prior study there are again seen no central pulmonary arterial filling defects to suggest pulmonary embolism.
Widespread bilateral prominent likely chronic interstitial markings are again seen with areas of bronchiectasis.
There is new right lower lobe opacification compatible with subsegmental atelectasis and/or pneumonia and tiny right pleural effusion.
Evaluation of the soft tissues of the abdomen and pelvis markedly limited by beam hardening artifact from the patient's bilateral upper extremities, lack of oral/enteric contrast and marked paucity of intra-abdominal/pelvic fat, without intestinal
obstruction or free air. Bowel pathology cannot be excluded.
Large volume stool in the rectum.
RUQ abdominal ultrasound 05/05/2024: Essentially unremarkable abdominal ultrasound, as detailed above. Gallbladder poorly visualized and may be contracted.
Subjective Data
-
Date of Service:
Date of Service: May 10, 2024
Chief Complaint: Pulmonary Follow Up and Dyspnea Follow Up
Subjective:
Sedated, agitated overnight, given Seroquel, review of systems was unobtainable, no respiratory distress
Review of Systems
General: Other (Per HPI)
Objective Data
Data Reviewed
Vital Signs / I&O:
Vital Signs
Temp Pulse Resp BP Pulse Ox
98.4 F 67 18 138/66 97
05/10/24 07:28 05/10/24 07:45 05/10/24 07:45 05/10/24 07:28 05/10/24 07:45
Intake and Output
05/09/24 05/10/24 05/11/24
06:59 06:59 06:59
Intake Total 720 / 720 580 / 580
Output Total 1080 / 1080
Balance 720 / 720 -500 / -500
SaO2: 97
Nasal Cannula flow liters per minute: 2.5
Physical Exam
General: Respiratory Distress (negative), Comfortable, Chills (negative), Sweats (negative) and Other (Confusion/slight agitation)
HEENT: Normocephalic, Anicteric and Moist Mucous Membranes
Cardiovascular: Regular Rhythm, Peripheral Edema (negative) and Other (Difficult to auscultate cardiac sounds given loud rhonchi/rales heard from lungs)
Respiratory: Wheeze (negative), Crackles (Bilaterally (R >L)), Rhonchi (Bilaterally (R >L)), Non-Labored Respirations and Accessory Resp Muscle Use (n)
GI: Soft, Non Distended, Non Tender and Normal Bowel Sounds
Neurology: Other (Confused) and Other (Sedated)
Skin: Warm, Good Color, Cyanosis (negative) and Jaundice (negative)
Labs/Micro/Reports
Lab Data
05/10/24 08:11
05/10/24 08:11
Microbiology
05/05/24 17:50 Blood/Venous Blood Culture - Preliminary
No Growth in 4 days- Final report to follow
05/05/24 17:50 Blood/Venous Blood Culture - Preliminary
No Growth in 4 days- Final report to follow
05/06/24 18:53 Urine Legionella Urinary Antigen - Final
Negative for Legionella pneumophila Serogroup 1 antigen.
A negative result does not rule out the possiblity of
Legionella infection due to other serogroups or species of
Legionella. Clinical correlation is recommended.
05/06/24 18:53 Urine Streptococcus pneumoniae Antigen (M - Final
Negative for Streptococcus pneumoniae antigen.
A negative result does not exclude infection with
Streptococcus pneumoniae. Clinical correlation is
recommended.
--- NOTE | 2024-05-10 10:13 | W.PN.UPDATE ---
Update Note
Progress Note Update
I saw and evaluated the patient independently. I reviewed the resident�s note and agree with findings and plan as documented by Dr. Fsih.
Pt awoken from sleep but was confused.
Gen: NAD, NCAT, appears chronically ill
Neck: supple.
CV: RRR, +S1/S2, no m/r/g.
Resp: CTAB, no rales, wheezes, or rhonchi.
Neuro: CN 2-12 intact
Psych: calm
CT chest 04/28/24: No PE. 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 Underlying chronic interstitial lung disease not excluded.
CXR 05/05/24: No convincing acute cardiopulmonary process. Chronic interstitial changes.
CXR 05/09/24: Diffuse coarsening of the interstitial markings throughout both lungs more prominent on the right than the left, stable when compared with the prior study and consistent with interstitial fibrosis. Stable blunting of the right
costophrenic angle which may be pleural scarring or minimal effusion
Sepsis, POA:
-initially thought to be due to PNA (CAP vs HAP as pt was recently hospitalized) vs progressive MARITZA (most likely)
-Imaging not consistent with bacterial pneumonia, more likely progressive MARITZA
-was on IV steroids, now off
-pulm following
-Strep/Legionella urinary antigens NEG, MRSA screen NEG, BCxs NG, COVID NEG
-was on Cefepime but with likely acute toxic encephalopathy due to cefepime, abx changed to Levaquin as per pulm recs. As Levaquin can also cause acute toxic encephalopathy will stop Levaquin. Doubt patient needs any antibiotics at all at this
time. Will consult ID.
Acute on chronic hypoxic respiratory failure
-baseline chronic hypoxic respiratory failure due to COPD (on 2L NC O2 at baseline)
Dementia:
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
-psych following
-seroquel started
Other problems:
Hyponatremia, mild: possibly due to dehydration vs SIADH from chronic lung issues. Was on IVFs, now off
Constipation: improved with bowel regimen
Glaucoma: cont latanoprost
Steroid induced hyperglycemia: SSI/accuchecks, check a1c
Lovenox/DNR
[2024-05-10 11:48] LABS: Glucose - Point of Care 110 mg/dl (70-99)
--- NOTE | 2024-05-10 12:12 | W.PN.HOSP.TC ---
Today's Communication/Plan
-
.
Assessment / Plan
Assessment / Plan
1. Pneumonia, CAP versus HAP
-Potential pneumonia seen on CT of the chest in the ED.
-Vs. chronic MARITZA/pulmonary fibrosis (more likely at this point)
-Cefepime continued while in hospital; per pulm recs: switch to Levaquin 500 PO on discharge for total of 7 days of abx.
- Given the patient's episodes of agitation, hesitant to start Levaquin due to potential for encephalopathy.
- Consulted ID for reccs
-Consider half-way prophylaxis at discharge.
2. SIRS with a potential source of infection
- WBC 16.1 + tachycardia/tachypnea in ED --> WBC 11.5 --> 17.3 (pt clinically improving, consider steroid induced leukocytosis)
- WBC 12 today; elevated white count likely steroid induced.
-Blood cultures negative over course of admission
-Lactate WNL
-Antibiotics as above.
3. Acute hypoxic respiratory insufficiency
-Patient's baseline is 2 L; required 4-5L on admission; patient back to baseline over last 48 hours. Ready for discharge clinically, await CM.
-Bronchiectasis noted on CT
-Continue DuoNeb treatment while still in hospital
-Steroids discontinued (see below)
-Pulmonary consult appreciated
-COVID test negative
-Speech/nutrition consult for concerns for aspiration and pulmonary cachexia: reccs Level 6 soft/bite sized diet
-Home O2 Assessment
4. Hypochloremic hyponatremia
-132--> 130 --> 133 --> 134--> 135 --> 131
- Continue to monitor BMP; Goal 135-145
- Consider renal if abnormal
5. Glaucoma
-Continue home medication, Latanoprost
6. DVT prophylaxis
-Lovenox
7. Hyperglycemia
- ACHS glucose checks
- SS Insulin Started
- Likely steroid induced hyperglycemia
- improved today POC glucose in the low 100s
8. Constipation
- improving. Continue to monitor BMs.
9. Agitation/Confusion
- Pt had an episode of agitation last night. Pt needs to return to [place], longer she stays here the worse the episodes of sundowning will become. Medically ready to be d/c to [place] or SNF; awaiting placement.
- Likely steroid induced; steroid treatment discontinued as patient back to respiratory baseline.
- Seen by Psych; Seroquel 25mg qd @ 1600 + PRN seroquel 25 mg for agitation
Anticipated Discharge: Within 24 hours
Subjective/Interval History
-
Date of Service: May 10, 2024
History limited secondary to Alzheimer's Dementia. Per nursing the patient became agitated again last night and was given her PRN order of Seroquel and 4x soft restraints.
Objective Data
-
Labs:
Laboratory Results
05/10/24
08:11
WBC 12.2 H
Hgb 11.1 L
Hct 34.7 L
Plt Count 412 H
Sodium 131 L
Potassium 4.1
Chloride 94 L
Carbon Dioxide 30
BUN 15
Creatinine 0.5 L
Glucose 96
Calcium 8.8
Vital Signs:
Vital Signs
Temp Pulse Resp BP Pulse Ox
98.4 F 67 18 138/66 97
05/10/24 07:28 05/10/24 07:45 05/10/24 07:45 05/10/24 07:28 05/10/24 09:12
I&O
05/09/24 05/10/24 05/11/24
06:59 06:59 06:59
Intake Total 720 / 720 580 / 580
Output Total 1080 / 1080
Balance 720 / 720 -500 / -500
Review of Systems
-
Unable to obtain full review of systems at this time due to: Dementia
Physical Exam
-
General: No Apparent Distress and Comfortable
HEENT: Normocephalic and Atraumatic
Respiratory: Crackles
Cardiac: Regular Rhythm and S1/S2
Skin: Warm
Neuro: Awake and Alert
Psych: Calm and Confused
Data Reviewed
-
Labs: Labs Reviewed by me
--- NOTE | 2024-05-10 12:36 | CON.ID ---
Addendum entered and electronically signed by Teo Gonzales, 05/10/24 15:18:
I personally performed a history and physical exam of the patient and discussed management with the resident. I reviewed the resident's note and agree with the documented findings and plan of care HPI/CC.
Original Note:
Chief Complaint / Past History
History of Present Illness
This is a 84-year-old female patient with PMH of Alzheimer's, COPD, GERD, glaucoma and pulmonary MAC who presented to the ED from [facility] right abdominal pain, lower rib pain with cough. Patient is a poor historian due to dementia and history
mostly obtained from reviewing prior notes.
She was recently admitted around 2 weeks ago for acute on chronic hypoxic respiratory failure and delirium and was discharged after being weaned to baseline oxygen of 2L and improvement in delirium. After being discharged to [facility] she started to
have concerns of right upper upper abdominal pain and lower rib pain with cough. She denies any fever, abdominal pain nausea or vomiting. Upon presentation to the ED she was septic on admission and CT chest was done showing right lower lobe
opacification with possibility of pneumonia and small right pleural effusion she was then started on vancomycin and cefepime along with IV high-dose steroids. Due to continued severe agitation of patient steroids were stopped on 05/08. MRSA screen
came back negative therefore vancomycin was discontinued but continued on cefepime.
Past History
Past Medical History: COPD, GERD, Psychiatric (Alzheimer's) and Other (Glaucoma, pulmonary MAC)
Past Surgical History: Other (Hernia repair)
Allergy History:
No Known Allergies Allergy (Verified 05/05/24 17:04)
Social History
Tobacco: Former Smoker
Alcohol: None
Drug: None
Personal: Single
Living: Other ([facility])
Family History
Family History: Not Pertinent
Review of Systems
Review of Systems
General: Other (Poor historian); Negative Fever or Chills
Cardiovascular: Negative Chest Pain
Vital Signs
Temp Pulse Resp BP Pulse Ox
98.4 F 67 18 138/66 97
05/10/24 07:28 05/10/24 07:45 05/10/24 07:45 05/10/24 07:28 05/10/24 09:12
Physical Exam
Physical Exam
Constitutional: No Acute Distress, Chronically Ill and Cachetic
Cardiovascular: Regular Rate and S1/S2
Pulmonary: Clear
Gastrointestinal: Soft, Non Tender and Non Distended
Skin: Warm and Dry
Neurological: Awake; Negative Oriented
Lab / Diagnostic Study Results
05/10/24 08:11
05/10/24 08:11
Abs Immat Gran (auto) 0.1 10^3/uL (0-0.05) H 05/07/24 08:52
Absolute Neuts (auto) 16.0 10^3/uL (1.4-6.5) H 05/07/24 08:52
Absolute Lymphs (auto) 0.4 10^3/uL (1.2-3.4) L 05/07/24 08:52
Absolute Monos (auto) 0.8 10^3/uL (0.1-0.6) H 05/07/24 08:52
Absolute Basos (auto) 0.0 10^3/uL (0-0.2) 05/07/24 08:52
Immature Gran % 0.7 % (0-0.5) H 05/07/24 08:52
Neutrophils % 92.3 % (42.2-75.2) H 05/07/24 08:52
Lymphocytes % 2.1 % (20.5-51.1) L 05/07/24 08:52
Monocytes % 4.7 % (1.7-9.3) 05/07/24 08:52
Eosinophils % 0.0 % (0-6) 05/07/24 08:52
Basophils % 0.2 % (0-2) 05/07/24 08:52
Lactic Acid 1.0 mmol/L (0.7-2.0) 05/05/24 17:50
Microbiology Results
Micro:
05/05/24 17:50 Blood Culture - Preliminary
Blood/Venous No Growth in 4 days- Final report to follow
05/05/24 17:50 Blood Culture - Preliminary
Blood/Venous No Growth in 4 days- Final report to follow
05/06/24 18:53 Legionella Urinary Antigen - Final
Urine Negative for Legionella pneumophila Serogroup 1 antigen.
A negative result does not rule out the possiblity of
Legionella infection due to other serogroups or species of
Legionella. Clinical correlation is recommended.
Streptococcus pneumoniae Antigen (M - Final
Negative for Streptococcus pneumoniae antigen.
A negative result does not exclude infection with
Streptococcus pneumoniae. Clinical correlation is
recommended.
05/06/24 09:44 Nasal Screen MRSA (PCR) - Final
Nose MRSA not detected - performed by PCR methodology.
Assessment / Plan
Impression/Assessment:
Sepsis POA - thought to be secondary to ?CAP vs HAP
Progressing Pulmonary MAC
Dementia
Recommendations:
-Afebrile, not oriented
- WBC downtrending ( was taken off IV steroids recently)
- CT abd/pelvis 05/05: new right lower lobe opacification compatible with subsegmental atelectasis and/or pneumonia and tiny right pleural effusion. No PE.
-CXR on 05/09: diffuse coarsening of the interstitial markings throughout both lungs more prominent on the right than the left, stable when compared with the prior study and consistent with interstitial fibrosis
-Blood cultures, MRSA screen, urine screen for legionella/strep pneumoniae negative
-Initially on vanco/cefepime which was then narrowed to cefepime#day 3
-Pulmonary following
-Discontinue cefepime, would not recommend further abx need at this current time as imaging, clinical appearance and bloodwork not pointing to any source of infection (wbc elevation most likely due to steroids)
[2024-05-10 15:20] VITALS: BP 133/65
[2024-05-10 16:32] LABS: Glucose - Point of Care 121 mg/dl (70-99)
[2024-05-10] MEDS: LOVENOX 30 MG SC (17:20)
[2024-05-10] MEDS: XALATAN OPHTHALMIC SOLUTION 1 DROP BOTH EYES (21:41)
[2024-05-10 22:31] LABS: Glucose - Point of Care 123 mg/dl (70-99)
[2024-05-10 23:00] VITALS: BP 122/75
[2024-05-11] MEDS: SEROQUEL 25 MG PO ×3 (02:01→21:29)
[2024-05-11 06:32] LABS: Hematocrit 35.9 % (37.0-47.0); Hemoglobin 11.6 g/dL (12.0-16.0); Mean Corp Hgb Conc. 32.3 g/dL (33.0-37.0); Mean Corpuscular Hgb 27.4 pg (27.0-31.0); Mean Corpuscular Volume 84.9 fL (81.0-99.0); Mean Platelet Volume 9.2 fL (7.4-10.4); Platelet Count 414 10^3/uL (130-400); Red Blood Cell Count 4.23 10^6/uL (4.20-5.40); Red Cell Dist. Width 13.9 % (11.5-14.5); White Blood Cell Count 10.6 10^3/uL (4.8-10.8)
[2024-05-11 07:31] LABS: ALT (SGPT) 18 U/L (0-35); AST (SGOT) 19 U/L (14-36); Alkaline Phosphatase 86 U/L (38-126); Blood Urea Nitrogen 17 mg/dl (7-17); Calcium 8.6 mg/dl (8.4-10.2); Carbon Dioxide 28 mmol/L (22-30); Chloride 94 mmol/L (98-107); Estimated Creatinine Clearance 44 ml/min; Glucose 89 mg/dl (70-99); Potassium 4.2 mmol/L (3.5-5.1); Sodium 132 mmol/L (135-145); Total Bilirubin 0.5 mg/dl (0.2-1.3); Total Protein 6.1 g/dl (6.3-8.2); eGFR > 60.00
[2024-05-11 07:35] VITALS: BP 118/70
[2024-05-11] MEDS: ADVAIR HFA 45/21 MCG INHALER 2 PUFF INH (07:40)
[2024-05-11 08:20] LABS: Glucose - Point of Care 83 mg/dl (70-99)
[2024-05-11] MEDS: NOVOLOG FLEXPEN-LOW RESISTANCE SC ×3 (08:31→17:31)
[2024-05-11] MEDS: MUCINEX 600 MG PO ×2 (08:32→21:29)
--- NOTE | 2024-05-11 09:36 | W.PN.UPDATE ---
Update Note
Progress Note Update
I saw and evaluated the patient independently. I reviewed the resident�s note and agree with findings and plan as documented by Dr. Fish.
Pt awoken from sleep but was confused. Was able to respond 'good morning' but then answers every question with 'uh-huh.'
Gen: NAD, NCAT, appears chronically ill
Neck: supple.
CV: RRR, +S1/S2, no m/r/g.
Resp: rales in R base
Neuro: CN 2-12 intact
Psych: calm
CT chest 04/28/24: No PE. 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 Underlying chronic interstitial lung disease not excluded.
CXR 05/05/24: No convincing acute cardiopulmonary process. Chronic interstitial changes.
CXR 05/09/24: Diffuse coarsening of the interstitial markings throughout both lungs more prominent on the right than the left, stable when compared with the prior study and consistent with interstitial fibrosis. Stable blunting of the right
costophrenic angle which may be pleural scarring or minimal effusion
Sepsis, POA:
-initially thought to be due to PNA (CAP vs HAP as pt was recently hospitalized) vs progressive MARITZA (most likely)
-Imaging not consistent with bacterial pneumonia, more likely progressive MARITZA
-was on IV steroids, now off
-pulm following
-Strep/Legionella urinary antigens NEG, MRSA screen NEG, BCxs NG, COVID NEG
-was on Cefepime but with likely acute toxic encephalopathy due to cefepime, abx changed to Levaquin as per pulm recs. As Levaquin can also cause acute toxic encephalopathy it was stopped Levaquin. On 05/10/24, upon case review, I did not see any
indication for antibiotic therapy. ID was consulted and Dr. Gonzales agreed.
Acute on chronic hypoxic respiratory failure
-baseline chronic hypoxic respiratory failure due to COPD (on 2L NC O2 at baseline)
Dementia:
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
-psych following
-seroquel started
Other problems:
Hyponatremia, mild: possibly due to dehydration vs SIADH from chronic lung issues. Was on IVFs, now off
Constipation: improved with bowel regimen
Glaucoma: cont latanoprost
Steroid induced hyperglycemia: SSI/accuchecks, check a1c
Lovenox/DNR
Medically cleared for discharge. Case management aware. Poor prognosis.
--- NOTE | 2024-05-11 09:40 | W.PN.PUL.V3 ---
Today's Communication / Plan
-
Wean oxygen
Monitor agitation/delirium
Nebulizers
Disposition
Assessment
-
Assessment: 84-year-old female former tobacco smoker with a PMHx of COPD, restrictive lung defect, pulmonary MAC, bronchiectasis, dementia, GERD and glaucoma who presents with right side abdominal pain from [place] run. Patient is a poor historian due
to Alzheimer's dementia with confusion. On the morning prior to arrival, patient was endorsing right upper abdominal pain/right lower rib pain. She normally is on 2 L/min of oxygen but had required up to 4 L/min and the patient had a cough. In
the ER she required up to 5 L/min to reach saturations of 90%. Initial CXR showed no convincing evidence for an acute cardiopulmonary process. Abdominal ultrasound was unremarkable and CTA chest/CT abdomen/pelvis showed no evidence for a central
acute PE, with right lower lobe opacification concerning for pneumonia and/or subsegmental atelectasis. Also widespread chronic interstitial markings with areas of bronchiectasis. CT abdomen/pelvis was unremarkable with no etiology of her pain.
In the ER she was given DuoNebs, Solu-Medrol, cefepime/IV vancomycin and admitted to telemetry under the hospitalist. Pulmonary consulted for additional management/recommendations.
Chronic conditions CLOTHES MARKER: Reported history of COPD, GERD, glaucoma, former tobacco use, reported Hx of MARITZA, history of bronchiectasis, advanced dementia/Alzheimer's
Impression:
#Right lower lobe pneumonia/HAP (new compared to recent CTA chest on 04/28/2024) with small parapneumonic effusion
#Sepsis without shock due to above
#Acute on chronic respiratory failure with hypoxia on supplemental oxygen due to above
#Chronic anemia (baseline Hb: 11.5�13g/dL)
#Thrombocytosis, likely reactive given acute illness
#Hypochloremia, hyponatremia
#Hyperglycemia
#AMS with confusion - possibly steroid induced in setting of dementia
#Pulmonary bronchiectasis in RUL, medial RML, lingula, and bilateral lower lobes
#Hx of severe COPD with mosaic attenuation likely due to air trapping on Wixela inhub 100mcg with prn albuterol MDI at home
#Severe restrictive lung defect (T% predicted via review of prior notes)
#Constipation
#Former tobacco smoker
Toxic metabolic encephalopathy
Plan:
Respiratory status remains relatively stable
Continue supplemental oxygen-attempt to wean
Aspiration precautions
Incentive spirometry if able to participate
Advair
Nebulizers as needed
Mucolytic's
Chest x-ray 05/09/2024-interstitial markings throughout both lungs more prominent right and left stable compared to prior study and consistent with pulmonary fibrosis
Cultures reviewed
Empiric antibiotics-was on cefepime, vancomycin discontinued-now on oral levofloxacin-treat total 7-10 days
Right-sided pleural effusion is tiny and too small to safely perform thoracentesis; continue to monitor --> chest x-ray 05/09/2024. Chronic bibasilar changes. Stable compared to prior. Stable minimal pleural effusion.
Due to chronic bronchiectasis may consider low-dose macrolide therapy in the outpatient setting. For anti-inflammatory properties and prevention of acute exacerbation.
Monitor mental status
Seroquel continues
Psychiatry evaluation ongoing
Monitor blood sugar
Insulin supplementation as needed
DVT prophylaxis-on Lovenox
Nutrition with aspiration precautions
Early mobilization
Of note, she follows with pulmonary at [facility] with Dr. Jeong. She has a history of severe COPD with severe restrictive lung disease and bronchiectasis with history of tree-in-bud nodular opacities and pulmonary MAC. She is aware of her serious
lung disease and she had opted for conservative treatment. Advised to continue follow-up with [facility] following discharge from here.
-----
Data:
CTA chest, CT abdomen/pelvis with IV contrast 05/05/2024:
In comparison to very recent prior study there are again seen no central pulmonary arterial filling defects to suggest pulmonary embolism.
Widespread bilateral prominent likely chronic interstitial markings are again seen with areas of bronchiectasis.
There is new right lower lobe opacification compatible with subsegmental atelectasis and/or pneumonia and tiny right pleural effusion.
Evaluation of the soft tissues of the abdomen and pelvis markedly limited by beam hardening artifact from the patient's bilateral upper extremities, lack of oral/enteric contrast and marked paucity of intra-abdominal/pelvic fat, without intestinal
obstruction or free air. Bowel pathology cannot be excluded.
Large volume stool in the rectum.
RUQ abdominal ultrasound 05/05/2024: Essentially unremarkable abdominal ultrasound, as detailed above. Gallbladder poorly visualized and may be contracted.
Subjective Data
-
Date of Service:
Date of Service: May 11, 2024
Chief Complaint: Pulmonary Follow Up and Dyspnea Follow Up
Subjective:
Consent some confusion, arousable, no complaints of shortness of breath, no respiratory distress
Review of Systems
General: Other (Per HPI)
Objective Data
Data Reviewed
Vital Signs / I&O:
Vital Signs
Temp Pulse Resp BP Pulse Ox
97.3 F 100 18 118/70 95
05/11/24 07:35 05/11/24 07:41 05/11/24 07:41 05/11/24 07:35 05/11/24 07:41
Intake and Output
05/10/24 05/11/24 05/12/24
06:59 06:59 06:59
Intake Total 580 / 580 600 / 600
Output Total 1080 / 1080
Balance -500 / -500 600 / 600
SaO2: 95
Nasal Cannula flow liters per minute: 2
Physical Exam
General: Respiratory Distress (negative), Comfortable, Chills (negative), Sweats (negative) and Other (Confusion/slight agitation)
HEENT: Normocephalic, Anicteric and Moist Mucous Membranes
Cardiovascular: Regular Rhythm, Peripheral Edema (negative) and Other (Difficult to auscultate cardiac sounds given loud rhonchi/rales heard from lungs)
Respiratory: Wheeze (negative), Crackles (Bilaterally (R >L)), Rhonchi (Bilaterally (R >L)), Non-Labored Respirations and Accessory Resp Muscle Use (n)
GI: Soft, Non Distended, Non Tender and Normal Bowel Sounds
Neurology: Other (Confused) and Other (Sedated)
Skin: Warm, Good Color, Cyanosis (negative) and Jaundice (negative)
Labs/Micro/Reports
Lab Data
05/11/24 06:20
05/11/24 06:20
Microbiology
05/05/24 17:50 Blood/Venous Blood Culture - Final
No Growth - Final Report
05/05/24 17:50 Blood/Venous Blood Culture - Final
No Growth - Final Report
[2024-05-11 11:18] LABS: Glycohemoglobin (HgbA1c) 6.3 % (4.0-5.6)
[2024-05-11 11:38] VITALS: BP 119/55; BP 83/50; PULSE 89; O2SAT 98
[2024-05-11 11:41] VITALS: BP 119/55; BP 83/50; PULSE 89; O2SAT 98
--- NOTE | 2024-05-11 12:06 | W.PN.UPDATE ---
Update Note
Progress Note Update
Pt seen and reviewed with nursing staff. Pt did okay last night, but then was given Seroquel 25 mg at 2 am for yelling, trying to get out of bed, swinging legs out. Pt seen sleeping soundly, resting comfortably. Reviewed 2 existing orders for
Seroquel.
Imp: Dementia with Behavioral Disturbance
Rec: Change Seroquel to routine dose in the evening
[2024-05-11 12:07] LABS: Glucose - Point of Care 86 mg/dl (70-99)
--- NOTE | 2024-05-11 12:28 | PN.CDI ---
CDI
- -
CDI:
Physician Documentation Request
Admit Date: 05/05/24 18:54
Dear Doctor Abe,
05/06 Plate Embosser Assessment: 'CBW: 90 lbs 5 oz BMI 15.5 underweight range, 05/05. Pts weight previous admission listed as 94 lbs 12/14 reflective of a 4 lb (4%) weight loss in [address] able to visulize protrusion of
clavical, temporal wasting, fat loss over tricepts, Quad and calf muscle wasting. With observed muscle and fat wasting pt meets AND/ASPEN criteria for severe protein calorie malnutrition. '
Based on the above information and your assessment, which of the following most accurately represents the patient's nutritional status?
Severe protein calorie malnutrition
Other
[place] Criteria ([facility] Hospitalist 2017)
2 or more criteria must be present for either
non severe or severe malnutrition
Note that the criteria differs related to the
presence of an acute or chronic illness
Acute Illness Chronic Illness
Energy Intake Non Severe: <75% for >7 days Non Severe: <75% for >1 month
Severe: <50% for >5 days Severe: <75% for >1 month
Weight Loss Non Severe: 1-2% over 1 week Non Severe: 5% over 1 month
5% over 1 month 7.5% over 3 months
7.5% over 3 months 10% over 6 months
1 year N/A 20% over 1 year
Severe: >2% over 1 week Severe: >5% over 1 month
>5% over 1 month >7.5% over 3 months
>7.5% over 3 months >10% over 6 months
1 year N/A >20% over 1 year
Body Fat Non Severe: Mild Decrease Non Severe: Mild Loss
Severe: Moderate Decrease Severe: Severe Loss
Muscle Mass Non Severe: Mild Decrease Non Severe: Mild Loss
Severe: Moderate Decrease Severe: Severe Loss
Fluid Accumulation Non Severe: Mild Accumulation Non Severe: Mild Accumulation
Severe: Moderate to severe Severe: Moderate to severe
accumulation accumulation
Reduced Furniture Assembly Supervisor Strength Non Severe: N/A Non Severe: N/A
Severe: Measurably reduced Severe: Measurably reduced
Additional criteria that can be used to Determine if Mild or Moderate Malnutrition (Merck Manual 2018)
Mild Moderate Severe
Albumin gm/dl <3.0 gm/dl <2.5 gm/dl <2.0 gm/dl
Pre Albumin mg/dl <15 gm/dl <10 mg/dl <5.0 mg/dl
BMI <18.5 <17 <16
Use of terms such as suspected, likely, concern for, or probable (associated with a specific diagnosis that is being evaluated, monitored, or treated as if it exists) are acceptable and can be coded in the inpatient setting, when documented at the
time of discharge.
Thank you,
Dayanara Flores RN, BSN
CDI Specialist
Available via [place] text
Please use your independent medical judgment in providing your response.
[2024-05-11 15:00] VITALS: BP 123/65
--- NOTE | 2024-05-11 16:32 | CM ---
Spoke with attending who stated that patient is medically stable for discharge. Placed a call to [facility] admissions and spoke with Fani who confirmed that she can take patient back in the am if she has been stable behaviorally. Attending updated.
Plan: Case management will continue to follow and assist with discharge planning. [facility] if patient medically stable and free of behaviors in am.
[2024-05-11] MEDS: LOVENOX 30 MG SC (17:25)
[2024-05-11 17:29] LABS: Glucose - Point of Care 171 mg/dl (70-99)
[2024-05-11] MEDS: ADVAIR HFA 45/21 MCG INHALER INH (19:35)
[2024-05-11] MEDS: XALATAN OPHTHALMIC SOLUTION 1 DROP BOTH EYES (21:37)
[2024-05-11 23:37] VITALS: BP 122/70
--- NOTE | 2024-05-12 02:19 | PTCARENOTE ---
Patient agitated and combative, threw water ice at staff, attempted to bite staff, also took off monica bandage and wrapped around nurse's neck, using call benson to attempt to hit staff. Pulling off oxygen. patient unable to be reoriented.
[2024-05-12 07:15] VITALS: BP 133/67
[2024-05-12] MEDS: ADVAIR HFA 45/21 MCG INHALER 2 PUFF INH ×2 (07:28→19:56)
[2024-05-12 08:05] LABS: Glucose - Point of Care 93 mg/dl (70-99)
[2024-05-12] MEDS: NOVOLOG FLEXPEN-LOW RESISTANCE SC (08:11)
[2024-05-12] MEDS: MUCINEX 600 MG PO ×2 (08:12→20:49)
--- NOTE | 2024-05-12 08:35 | W.PN.UPDATE ---
Update Note
Progress Note Update
I saw and evaluated the patient independently. I reviewed the resident�s note and agree with findings and plan as documented by Dr. Fish.
Patient denies any new complaints. She says she does not know how she got to the hospital.
Gen: NAD, AAOx1, NCAT, appears chronically ill
Neck: supple.
CV: RRR, +S1/S2, no m/r/g.
Resp: CTAB anteriorly
Neuro: CN 2-12 intact
Psych: calm
CT chest 04/28/24: No PE. 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 Underlying chronic interstitial lung disease not excluded.
CXR 05/05/24: No convincing acute cardiopulmonary process. Chronic interstitial changes.
CXR 05/09/24: Diffuse coarsening of the interstitial markings throughout both lungs more prominent on the right than the left, stable when compared with the prior study and consistent with interstitial fibrosis. Stable blunting of the right
costophrenic angle which may be pleural scarring or minimal effusion
Sepsis, POA:
-initially thought to be due to PNA (CAP vs HAP as pt was recently hospitalized) vs progressive MARITZA (most likely)
-Imaging not consistent with bacterial pneumonia, more likely progressive MARITZA
-was on IV steroids, now off
-pulm following
-Strep/Legionella urinary antigens NEG, MRSA screen NEG, BCxs NG, COVID NEG
-was on Cefepime but with likely acute toxic encephalopathy due to cefepime, abx changed to Levaquin as per pulm recs. As Levaquin can also cause acute toxic encephalopathy it was stopped Levaquin. On 05/10/24, upon case review, I did not see any
indication for antibiotic therapy. ID was consulted and Dr. Gonzales agreed.
Acute on chronic hypoxic respiratory failure
-baseline chronic hypoxic respiratory failure due to COPD (on 2L NC O2 at baseline)
Dementia:
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
-psych following
-seroquel started
Other problems:
Hyponatremia, mild: possibly due to dehydration vs SIADH from chronic lung issues. Was on IVFs, now off
Constipation: improved with bowel regimen
Glaucoma: cont latanoprost
Steroid induced hyperglycemia: a1c 6.3%, SSI/accuchecks
Lovenox/DNR
Remains medically cleared for discharge since 24AM. Case management aware. Poor prognosis.
Total time spent on d/c = 31 min. This included today's physical exam, progress note, review of laboratory and diagnostic data, preparation of discharge documents and prescriptions, and discussions about the pt's hospital course and discharge plan
with the patient and other medical records analyst involved in the patient's care.
--- NOTE | 2024-05-12 09:20 | W.PN.PUL.V3 ---
Today's Communication / Plan
-
Wean oxygen
Aspiration precautions
Seroquel appears to be helping
Continue inhalers and nebulizers if needed
Pulmonary will sign off-please call with questions
Assessment
-
Assessment: 84-year-old female former tobacco smoker with a PMHx of COPD, restrictive lung defect, pulmonary MAC, bronchiectasis, dementia, GERD and glaucoma who presents with right side abdominal pain from [place] run. Patient is a poor historian due
to Alzheimer's dementia with confusion. On the morning prior to arrival, patient was endorsing right upper abdominal pain/right lower rib pain. She normally is on 2 L/min of oxygen but had required up to 4 L/min and the patient had a cough. In
the ER she required up to 5 L/min to reach saturations of 90%. Initial CXR showed no convincing evidence for an acute cardiopulmonary process. Abdominal ultrasound was unremarkable and CTA chest/CT abdomen/pelvis showed no evidence for a central
acute PE, with right lower lobe opacification concerning for pneumonia and/or subsegmental atelectasis. Also widespread chronic interstitial markings with areas of bronchiectasis. CT abdomen/pelvis was unremarkable with no etiology of her pain.
In the ER she was given DuoNebs, Solu-Medrol, cefepime/IV vancomycin and admitted to telemetry under the hospitalist. Pulmonary consulted for additional management/recommendations.
Chronic conditions PHARMACIST IN CHARGE: Reported history of COPD, GERD, glaucoma, former tobacco use, reported Hx of MARITZA, history of bronchiectasis, advanced dementia/Alzheimer's
Impression:
#Right lower lobe pneumonia/HAP (new compared to recent CTA chest on 04/28/2024) with small parapneumonic effusion
#Sepsis without shock due to above
#Acute on chronic respiratory failure with hypoxia on supplemental oxygen due to above
#Chronic anemia (baseline Hb: 11.5�13g/dL)
#Thrombocytosis, likely reactive given acute illness
#Hypochloremia, hyponatremia
#Hyperglycemia
#AMS with confusion - possibly steroid induced in setting of dementia
#Pulmonary bronchiectasis in RUL, medial RML, lingula, and bilateral lower lobes
#Hx of severe COPD with mosaic attenuation likely due to air trapping on Wixela inhub 100mcg with prn albuterol MDI at home
#Severe restrictive lung defect (T% predicted via review of prior notes)
#Constipation
#Former tobacco smoker
Toxic metabolic encephalopathy
Plan:
Respiratory status continues to be relatively stable
Continue supplemental oxygen-attempt to wean-assess discharge supplemental oxygen needs
Aspiration precautions
Incentive spirometry if able to participate
Advair continues
Nebulizers as needed-current minimal bronchospasm
Mucolytic's
Chest x-ray 05/09/2024-interstitial markings throughout both lungs more prominent right and left stable compared to prior study and consistent with pulmonary fibrosis
Cultures reviewed
Empiric antibiotics-was on cefepime, vancomycin discontinued-now on oral levofloxacin-treat total 7-10 days
Right-sided pleural effusion is tiny and too small to safely perform thoracentesis; continue to monitor --> chest x-ray 05/09/2024. Chronic bibasilar changes. Stable compared to prior. Stable minimal pleural effusion.
Due to chronic bronchiectasis may consider low-dose macrolide therapy in the outpatient setting-for anti-inflammatory properties and prevention of acute exacerbation.
Monitor mental status
Seroquel continues-appears to be working
Psychiatry evaluation ongoing-correspondence reviewed
Monitor blood sugar
Insulin supplementation as needed
DVT prophylaxis-on Lovenox
Nutrition with aspiration precautions
Early mobilization
Respiratory status has stabilized-pulmonary will sign off-please call with questions
Of note, she follows with pulmonary at [facility] with Dr. Jeong. She has a history of severe COPD with severe restrictive lung disease and bronchiectasis with history of tree-in-bud nodular opacities and pulmonary MAC. She is aware of her serious
lung disease and she had opted for conservative treatment. Advised to continue follow-up with [facility] following discharge from here.
-----
Data:
CTA chest, CT abdomen/pelvis with IV contrast 05/05/2024:
In comparison to very recent prior study there are again seen no central pulmonary arterial filling defects to suggest pulmonary embolism.
Widespread bilateral prominent likely chronic interstitial markings are again seen with areas of bronchiectasis.
There is new right lower lobe opacification compatible with subsegmental atelectasis and/or pneumonia and tiny right pleural effusion.
Evaluation of the soft tissues of the abdomen and pelvis markedly limited by beam hardening artifact from the patient's bilateral upper extremities, lack of oral/enteric contrast and marked paucity of intra-abdominal/pelvic fat, without intestinal
obstruction or free air. Bowel pathology cannot be excluded.
Large volume stool in the rectum.
RUQ abdominal ultrasound 05/05/2024: Essentially unremarkable abdominal ultrasound, as detailed above. Gallbladder poorly visualized and may be contracted.
Subjective Data
-
Date of Service:
Date of Service: May 12, 2024
Chief Complaint: Pulmonary Follow Up and Dyspnea Follow Up
Subjective:
Less somnolent, awakens, confused, no complaints of shortness of breath, chest pain or abdominal pain
Review of Systems
General: Other (Per HPI)
Objective Data
Data Reviewed
Vital Signs / I&O:
Vital Signs
Temp Pulse Resp BP Pulse Ox
98.2 F 95 16 133/67 98
05/12/24 07:15 05/12/24 07:30 05/12/24 07:30 05/12/24 07:15 05/12/24 07:30
Intake and Output
05/11/24 05/12/24 05/13/24
06:59 06:59 06:59
Intake Total 600 / 600
Balance 600 / 600
SaO2: 98
Nasal Cannula flow liters per minute: 2
Physical Exam
General: Respiratory Distress (negative), Comfortable, Chills (negative), Sweats (negative) and Other (Confusion/slight agitation)
HEENT: Normocephalic, Anicteric and Moist Mucous Membranes
Cardiovascular: Regular Rhythm, Peripheral Edema (negative) and Other (Difficult to auscultate cardiac sounds given loud rhonchi/rales heard from lungs)
Respiratory: Wheeze (negative), Crackles (Bilaterally (R >L)), Rhonchi (Bilaterally (R >L)), Non-Labored Respirations and Accessory Resp Muscle Use (n)
GI: Soft, Non Distended, Non Tender and Normal Bowel Sounds
Neurology: Other (Confused) and Other (Sedated)
Skin: Warm, Good Color, Cyanosis (negative) and Jaundice (negative)
Labs/Micro/Reports
Lab Data
05/11/24 06:20
05/11/24 06:20
Microbiology
05/05/24 17:50 Blood/Venous Blood Culture - Final
No Growth - Final Report
05/05/24 17:50 Blood/Venous Blood Culture - Final
No Growth - Final Report
[2024-05-12 11:11] LABS: Glucose - Point of Care 203 mg/dl (70-99)
--- NOTE | 2024-05-12 11:49 | CM ---
Reviewed chart, patient was aggressive and combative last evening and therefore [facility] will not take until her behaviors are managed. Spoke with attending. Will message Psychiatry to determine best path.
Fani in admissions at [facility] stated that she will not take patient until patient is closer to 48 hrs with no behaviors.
Plan: Case management will continue to follow and assist with discharge planning. [facility] when behaviorally stable for Rehab.
[2024-05-12 11:55] VITALS: BP 137/97
--- NOTE | 2024-05-12 12:27 | W.PN.HOSP.TC ---
Today's Communication/Plan
-
.
Assessment / Plan
Assessment / Plan
1. Pneumonia, CAP versus HAP
-Potential pneumonia seen on CT of the chest in the ED.
-Vs. chronic MARITZA/pulmonary fibrosis (more likely at this point)
-Cefepime continued while in hospital; per pulm recs: switch to Levaquin 500 PO on discharge for total of 7 days of abx.
- Given the patient's episodes of agitation, hesitant to start Levaquin due to potential for encephalopathy.
- Consulted ID for reccs
- Pt clinically improved and taken off of antibiotics for concern for medication induced AMS.
-Consider local company intermodal truck driver prophylaxis at discharge.
2. SIRS with a potential source of infection
- WBC 16.1 + tachycardia/tachypnea in ED --> WBC 11.5 --> 17.3 (pt clinically improving, consider steroid induced leukocytosis)
- WBC 11.3 today
-Blood cultures negative over course of admission
-Lactate WNL
3. Acute hypoxic respiratory insufficiency
-Patient's baseline is 2 L; required 4-5L on admission; patient back to baseline over last 48 hours. Ready for discharge clinically, await CM.
-Bronchiectasis noted on CT
-Continue DuoNeb treatment while still in hospital
-Steroids discontinued (see below)
-Pulmonary consult appreciated
-COVID test negative
-Speech/nutrition consult for concerns for aspiration and pulmonary cachexia: reccs Level 6 soft/bite sized diet
-Home O2 Assessment
4. Hypochloremic hyponatremia
-132--> 130 --> 133 --> 134--> 135 --> 131
- Continue to monitor BMP; Goal 135-145
- Consider renal if abnormal
5. Glaucoma
-Continue home medication, Latanoprost
6. DVT prophylaxis
-Lovenox
7. Hyperglycemia
- ACHS glucose checks
- SS Insulin Started
- Likely steroid induced hyperglycemia
- improved today POC glucose in the low 100s
8. Constipation
- improving. Continue to monitor BMs.
9. Agitation/Confusion
- Pt had an episode of agitation last night. Pt needs to return to [place], longer she stays here the worse the episodes of sundowning will become. Medically ready to be d/c to [place] or SNF; awaiting placement.
- Likely steroid induced; steroid treatment discontinued as patient back to respiratory baseline.
- Seen by Psych; Seroquel 25mg qd @ 1600 + PRN seroquel 25 mg for agitation
10. Syncope
- VSS after event, EKG shows NSR
- Likely vasovagal
- CXR, BMP, cardiology consult
Anticipated Discharge: 24 - 48 hours
Subjective/Interval History
-
Date of Service: May 12, 2024
History limited secondary to dementia. Pt was medically cleared for discharge but has been having episodes of agitation secondary to sundowning. intermediate will not take her back unless she is agitation free for 48 hours. Pt had another event last
night (see nursing note). Per nursing patient had an episode of syncope today while she was sitting on commode and having a BM.
Objective Data
-
Labs:
Laboratory Results
05/12/24
12:11
WBC Pending
Hgb Pending
Hct Pending
Plt Count Pending
Sodium Pending
Potassium Pending
Chloride Pending
Carbon Dioxide Pending
BUN Pending
Creatinine Pending
Glucose Pending
Calcium Pending
Vital Signs:
Vital Signs
Temp Pulse Resp BP Pulse Ox
98.2 F 95 16 133/67 98
05/12/24 07:15 05/12/24 07:30 05/12/24 07:30 05/12/24 07:15 05/12/24 09:20
I&O
05/11/24 05/12/24 05/13/24
06:59 06:59 06:59
Intake Total 600 / 600 300 / 300
Balance 600 / 600 300 / 300
Review of Systems
-
Unable to obtain full review of systems at this time due to: Dementia
Physical Exam
-
General: Well Developed and Well Nourished
HEENT: Normocephalic and Atraumatic
Respiratory: Crackles
Cardiac: Regular Rhythm and S1/S2
GI: Soft and Nontender
Musculoskeletal: No Edema
Neuro: Awake
Psych: Calm and Confused
Data Reviewed
-
Diagnostic Radiology: Report Reviewed by me
Medical Tests (Nuc Med, Echo etc): Report Reviewed by me
Labs: Labs Reviewed by me
[2024-05-12 12:29] LABS: Hematocrit 35.6 % (37.0-47.0); Hemoglobin 11.8 g/dL (12.0-16.0); Mean Corp Hgb Conc. 33.1 g/dL (33.0-37.0); Mean Corpuscular Hgb 27.8 pg (27.0-31.0); Mean Corpuscular Volume 83.8 fL (81.0-99.0); Mean Platelet Volume 9.3 fL (7.4-10.4); Platelet Count 451 10^3/uL (130-400); Red Blood Cell Count 4.25 10^6/uL (4.20-5.40); White Blood Cell Count 11.3 10^3/uL (4.8-10.8)
[2024-05-12 12:43] LABS: Blood Urea Nitrogen 16 mg/dl (7-17); Calcium 8.8 mg/dl (8.4-10.2); Carbon Dioxide 30 mmol/L (22-30); Chloride 94 mmol/L (98-107); Estimated Creatinine Clearance 44 ml/min; Glucose 234 mg/dl (70-99); Magnesium 2.1 mg/dl (1.6-2.3); Potassium 3.9 mmol/L (3.5-5.1); Sodium 131 mmol/L (135-145); eGFR > 60.00
[2024-05-12] MEDS: NOVOLOG FLEXPEN-LOW RESISTANCE 2 UNITS SC ×2 (13:24→16:25)
--- NOTE | 2024-05-12 14:37 | CON.CAR ---
Addendum entered and electronically signed by Sweta Machado MD 05/12/24 20:52:
I saw and examined the patient.
The Medical Coding Auditor's note was reviewed and I agree with the note.
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
while moving bowels on commode. Patient couldn't recall event, nor can tell me about any symptoms before or after. Reportedly no chest pain or worsened SOB prior.
Vitals and labs reviewed. Tele with no evidence of arrhythmias or heart block. Echocardiogram with preserved LVEF and otherwise structurally normal heart and no significant valvular abnormalities.
Reccs:
1. History in regards to syncope seems to be most consistent with likely vasovagal event with no tele events so far suggesting high grade heart block or arrhythmias. Normal heart structurally without significant valvular abnormalities and normal
LVEF.
2. No further cardiac workup indicated unless clinical scenario changes or any new findings noted on tele.
3. We will sign off from cardiac standpoint. Please call us with any new questions or concerns.
Sweta Machado MD, [facility], [facility].
Original Note:
Consultation
Consultation Request
Date/Time Consultation Requested: 05/12/24
Date/Time Consultation Performed: 05/12/24
Requesting Provider: Dr. Olivares
Performing Provider: Dr. Sweta Machado
Reason for Consultation: Syncope
Medical History
-
History of Present Illness:
Patient came to [facility] for acute on chronic hypoxic respiratory insufficiency and possible sepsis 05/05/24 and cardiology is now consulted for syncope this morning. Patient has dementia and cannot give a reliable history, but her nephew, Leonardo, came
into the room and was able to tell me that the patient lived independently in her own home up until of this year. Patient then transitioned into assisted living at [facility] due to worsening cognition. Patient did not have children and
her nephew has been her primary caregiver and advocate and takes her to doctor's appointments. Nephew describes seeing Pulm and having additional scans earlier this year for MARITZA, but patient did not wish to pursue more aggressive therapy. Patient
has now had a series of admissions for respiratory issues. This admission the patient had a deterioration is mental status thought to be related to sundowning and prednisone, but also possibly cefepime. Cardiology is consulted for syncope that
happened this morning when patient was sitting on the commode moving her bowels. Patient has no recollection of syncope. Tele reviewed and no arrhythmia or pause. BP was 137/97 at that time.
PMH:
Recent admission for delirium, respiratory failure, COPD and MARITZA 04/28/24 until 04/29/24
Recent admission for COPD and bronchiectasis 12/15/23 until 12/20/23
Severe COPD
Severe RLD
Pulmonary MAC
Dementia with agitation
Past Medical History
Past Medical History: Other (in HPI)
Past Surgical History: Other (cataracts)
Social History
Tobacco: Non-Smoker
Alcohol: None
Drug: None
Personal:
Living: Other (living independently in her own home until then assisted living at [facility] and now in rehab at [facility])
Family History
Family History: Other (CVA)
Allergies / Home Medications
Allergy/AdvReac Type Severity Reaction Status Date / Time
No Known Allergies Allergy Verified 05/05/24 17:04
�Medication �Instructions �Recorded �Confirmed �Type
fluticasone 100 mcg-salmeterol 50 1 inh inhalation R BID 12/15/23 05/05/24 History
mcg/dose blistr powdr for Lung/Breathing Issues
inhalation (Wixela Inhub)
latanoprost 0.005 % eye drops 1 drp BOTH EYES BID Eye Condition 12/15/23 05/05/24 History
acetaminophen 325 mg tablet 650 mg PO Q4HPRN PRN mild pain 04/28/24 05/05/24 History
(Tylenol)
albuterol sulfate 90 mcg/actuation 2 puff inhalation R Q6HPRN PRN 04/28/24 05/05/24 History
aerosol inhaler shortness of breath or wheezing
guaifenesin 600 mg tablet, 600 mg PO Q12H cough 05/05/24 05/05/24 History
extended release 12 hr
Review of Systems
-
History Source: Patient and Family (nephew)
All other systems: Negative unless noted
Physical Exam
Vital Signs
Temp Pulse Resp BP Pulse Ox
98.4 F 74 24 137/97 100
05/12/24 11:55 05/12/24 11:55 05/12/24 11:55 05/12/24 11:55 05/12/24 11:55
GEN: NAD. AAO to self only, didn't know she was in the hospital or why
HEENT: EOMI, MMM
LUNGS: Diffuse rales and rhonchi, no audible wheeze
CV: Reg, S1/S2, no murmur
ABD: soft, BS+, NT, ND
EXT: No clubbing, cyanosis, lesions or edema B/L
NEURO: Gross non-focal
SKIN: Warm, dry and pink. No rash
Lab Results
05/12/24 12:11
05/12/24 12:11
Troponin I < 0.012 ng/ml 05/05/24 12:59
Impression / Plan
-
PCP: Dr. Norman
Cardiology: Dr. Guilherme Horne at [facility]
Pulm: Dr. Jeong at [facility]
Impression:
Admitted with acute on chronic hypoxic respiratory insufficiency on admission and sepsis 05/05/24
Syncope 05/12/24
Recent admission for delirium, respiratory failure, COPD and MARITZA 04/28/24 until 04/29/24
Recent admission for COPD and bronchiectasis 12/15/23 until 12/20/23
Severe COPD
Severe RLD
Pulmonary MAC
Dementia with agitation
h/o coronary calcification on CT scan
At 09/26/2023: EF 60 to 65%, stage I diastolic dysfunction, normal RV size and function, mild MR, no , mild to moderate aortic regurgitation
Echo 05/12/2024: EF 60 to 65%, stage I diastolic dysfunction, mild MR
Plan:
-Patient came to [facility] for acute on chronic hypoxic respiratory insufficiency and possible sepsis 05/05/24 and cardiology is now consulted for syncope this morning. Patient has dementia and cannot give a reliable history, but her nephew, Leonardo, came
into the room and was able to tell me that the patient lived independently in her own home up until of this year. Patient then transitioned into assisted living at [facility] due to worsening cognition. Patient did not have children and
her nephew has been her primary caregiver and advocate and takes her to doctor's appointments. Nephew describes seeing Pulm and having additional scans earlier this year for MARITZA, but patient did not wish to pursue more aggressive therapy. Patient
has now had a series of admissions for respiratory issues. This admission the patient had a deterioration is mental status thought to be related to sundowning and prednisone, but also possibly cefepime. Cardiology is consulted for syncope that
happened this morning when patient was sitting on the commode moving her bowels. Patient has no recollection of syncope. Tele reviewed and no arrhythmia or pause. BP was 137/97 at that time. She cannot complete orthostatic VS and transfer back to
rehab has been delayed due to recurrent episodes of agitated behavior including hitting and throwing objects at nurses.
-ECG reviewed by me and patient is SR without ischemic changes
-Patient cannot comply with orthostatic VS. Mostly normotensive to HTN this admission without any BP meds ordered.
-Talked with patient's nephew bedside and we ultimately had a goals of care discussion. Patient is a DNR, but her nephew is not ready for hospice because it will reduce the amount of PT and other services.
-Called patient's primary director community organization at [facility] and got an old echo which is stable to echo from today.
-Cont tele and look for arrhythmia, but patient would not be a candidate for any procedures and nephew would not patient to have anything more than medicines.
-76 min including chart prep, talking GOC with nephew,
[2024-05-12] MEDS: RISPERDAL M-TAB (ORALLY DISINTEGRATING) 0.25 MG PO (15:17)
[2024-05-12 15:25] VITALS: BP 124/63
[2024-05-12 16:24] LABS: Glucose - Point of Care 228 mg/dl (70-99)
[2024-05-12] MEDS: LOVENOX 30 MG SC (17:01)
[2024-05-12 19:18] VITALS: BP 120/60
--- NOTE | 2024-05-12 21:07 | W.PN.UPDATE ---
Update Note
Progress Note Update
Pt seen at bedside, was sleeping at the time. Chart reviewed. Pt remains intermittently agitated during the day though better at night with initiation of seroquel 25mg HS. When agitated can still pose danger to self when trying to get OOB.
Imp: Dementia with Behavioral Disturbance
Rec: Change Seroquel to 25mg AM + 75mg HS
[2024-05-12 21:14] LABS: Glucose - Point of Care 175 mg/dl (70-99)
[2024-05-12] MEDS: RISPERDAL M-TAB (ORALLY DISINTEGRATING) 0.5 MG PO (22:28)
[2024-05-12] MEDS: XALATAN OPHTHALMIC SOLUTION 1 DROP BOTH EYES (22:30)
[2024-05-12 23:36] VITALS: BP 102/73
[2024-05-13] VITALS (8 sets, daily range): BP systolic 104–144; BP diastolic 48–74; PULSE 83; O2SAT 99
[2024-05-13 06:59] LABS: Hematocrit 35.2 % (37.0-47.0); Hemoglobin 11.5 g/dL (12.0-16.0); Mean Corp Hgb Conc. 32.7 g/dL (33.0-37.0); Mean Corpuscular Hgb 28.3 pg (27.0-31.0); Mean Corpuscular Volume 86.5 fL (81.0-99.0); Mean Platelet Volume 9.7 fL (7.4-10.4); Platelet Count 407 10^3/uL (130-400); Red Blood Cell Count 4.07 10^6/uL (4.20-5.40); Red Cell Dist. Width 14.2 % (11.5-14.5); White Blood Cell Count 11.1 10^3/uL (4.8-10.8)
[2024-05-13 07:22] LABS: Blood Urea Nitrogen 14 mg/dl (7-17); Calcium 8.5 mg/dl (8.4-10.2); Carbon Dioxide 29 mmol/L (22-30); Chloride 96 mmol/L (98-107); Estimated Creatinine Clearance 44 ml/min; Glucose 120 mg/dl (70-99); Potassium 4.2 mmol/L (3.5-5.1); Sodium 133 mmol/L (135-145); eGFR > 60.00
[2024-05-13] MEDS: ADVAIR HFA 45/21 MCG INHALER INH ×2 (07:29→20:11)
[2024-05-13 07:34] LABS: Glucose - Point of Care 145 mg/dl (70-99)
[2024-05-13] MEDS: MUCINEX 600 MG PO ×2 (08:00→22:06)
[2024-05-13] MEDS: RISPERDAL M-TAB (ORALLY DISINTEGRATING) 0.25 MG PO ×3 (08:00→20:45)
[2024-05-13] MEDS: NOVOLOG FLEXPEN-LOW RESISTANCE SC ×2 (08:00→16:37)
--- NOTE | 2024-05-13 09:34 | W.PN.UPDATE ---
Addendum entered and electronically signed by Codey Olivares MD 05/13/24 11:33:
Severe protein calorie malnutrition
Addendum entered and electronically signed by Codey Olivares MD 05/13/24 11:28:
.
Original Note:
Update Note
Progress Note Update
I saw and evaluated the patient independently. I reviewed the resident�s note and agree with findings and plan as documented by Dr. Fish.
Patient denies any new complaints.
Gen: NAD, AAOx1, NCAT, appears chronically ill
Neck: supple.
CV: remains RRR, +S1/S2, no m/r/g.
Resp: remains CTAB anteriorly
Neuro: remains CN 2-12 intact
Psych: calm
CT chest 04/28/24: No PE. 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 Underlying chronic interstitial lung disease not excluded.
CXR 05/05/24: No convincing acute cardiopulmonary process. Chronic interstitial changes.
CXR 05/09/24: Diffuse coarsening of the interstitial markings throughout both lungs more prominent on the right than the left, stable when compared with the prior study and consistent with interstitial fibrosis. Stable blunting of the right
costophrenic angle which may be pleural scarring or minimal effusion
Echo: Left ventricle is small in size. Normal left ventricular wall thickness and
systolic function. No regional wall motion abnormalities are seen. LV ejection
fraction is 60-65% by Jaimes's method of discs. Stage I diastolic dysfunction
suggestive of abnormal relaxation.
Mild mitral regurgitation.
Syncope:
-occurred 05/12/24 while having a BM, likely vasovagal
-appreciate cardiology
-Telemetry without arrhythmias or high degree HB that would account for patient's syncope
-echo above
Sepsis, POA:
-initially thought to be due to PNA (CAP vs HAP as pt was recently hospitalized) vs progressive MARITZA (most likely)
-Imaging not consistent with bacterial pneumonia, more likely progressive MARITZA
-was on IV steroids, now off
-pulm following
-Strep/Legionella urinary antigens NEG, MRSA screen NEG, BCxs NG, COVID NEG
-was on Cefepime but with likely acute toxic encephalopathy due to cefepime, abx changed to Levaquin as per pulm recs. As Levaquin can also cause acute toxic encephalopathy it was stopped Levaquin. On 05/10/24, upon case review, I did not see any
indication for antibiotic therapy. ID was consulted and Dr. Gonzales agreed.
Acute on chronic hypoxic respiratory failure
-baseline chronic hypoxic respiratory failure due to COPD (on 2L NC O2 at baseline)
Dementia:
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
-psych following
-Continue Risperdal
Other problems:
Hyponatremia, mild: possibly due to dehydration vs SIADH from chronic lung issues. Was on IVFs, now off
Constipation: improved with bowel regimen
Glaucoma: cont latanoprost
Steroid induced hyperglycemia: a1c 6.3%, SSI/accuchecks
Lovenox/DNR
Medically cleared for d/c. Case management aware.
--- NOTE | 2024-05-13 09:39 | W.PN.HOSP.TC ---
Today's Communication/Plan
-
.
Assessment / Plan
Assessment / Plan
1. Pneumonia, CAP versus HAP
-Potential pneumonia seen on CT of the chest in the ED.
-Vs. chronic MARITZA/pulmonary fibrosis (more likely at this point)
-Cefepime continued while in hospital; per pulm recs: switch to Levaquin 500 PO on discharge for total of 7 days of abx.
- Given the patient's episodes of agitation, hesitant to start Levaquin due to potential for encephalopathy.
- Consulted ID for reccs
- Pt clinically improved and taken off of antibiotics for concern for medication induced AMS.
-Consider terminal gauger prophylaxis at discharge.
2. SIRS with a potential source of infection
- WBC 16.1 + tachycardia/tachypnea in ED --> WBC 11.5 --> 17.3 (pt clinically improving, consider steroid induced leukocytosis)
- WBC 11.3 today
-Blood cultures negative over course of admission
-Lactate WNL
3. Acute hypoxic respiratory insufficiency
-Patient's baseline is 2 L; required 4-5L on admission; patient back to baseline over last 48 hours. Ready for discharge clinically, await CM.
-Bronchiectasis noted on CT
-Continue DuoNeb treatment while still in hospital
-Steroids discontinued (see below)
-Pulmonary consult appreciated
-COVID test negative
-Speech/nutrition consult for concerns for aspiration and pulmonary cachexia: reccs Level 6 soft/bite sized diet
-Home O2 Assessment
4. Hypochloremic hyponatremia
-132--> 130 --> 133 --> 134--> 135 --> 131
- Continue to monitor BMP; Goal 135-145
- Consider renal if abnormal
5. Glaucoma
-Continue home medication, Latanoprost
6. DVT prophylaxis
-Lovenox
7. Hyperglycemia
- ACHS glucose checks
- SS Insulin Started
- Likely steroid induced hyperglycemia
- improved today POC glucose in the low 100s
8. Constipation
- improving. Continue to monitor BMs.
9. Agitation/Confusion
- Pt needs to return to [place], longer she stays here the worse the episodes of sundowning will become. Medically ready to be d/c to [place] or SNF; awaiting placement.
- Likely steroid induced; steroid treatment discontinued as patient back to respiratory baseline.
- Seen by Psych; Seroquel 25mg qd @ 1600 + PRN seroquel 25 mg for agitation
- Risperdal PRN
- No agitation last night; patient resting comfortably this morning.
10. Syncope
- VSS after event, EKG shows NSR
- Likely vasovagal
- Cards agrees, signed off
Medically Cleared for D/c; CM aware.
Anticipated Discharge: Within 24 hours
Subjective/Interval History
-
Date of Service: May 13, 2024
History limited secondary to dementia. No acute complaints over night. Per nursing, patient had a quiet night, without episodes of agitation or aggresiveness.
Objective Data
-
Labs:
Laboratory Results
05/13/24
06:09
WBC 11.1 H
Hgb 11.5 L
Hct 35.2 L
Plt Count 407 H
Sodium 133 L
Potassium 4.2
Chloride 96 L
Carbon Dioxide 29
BUN 14
Creatinine 0.5 L
Glucose 120 H
Calcium 8.5
Vital Signs:
Vital Signs
Temp Pulse Resp BP Pulse Ox
98.4 F 77 16 120/59 98
05/13/24 07:15 05/13/24 07:15 05/13/24 07:15 05/13/24 07:15 05/13/24 07:15
I&O
05/12/24 05/13/2405/14/24
06:59 06:59 06:59
Intake Total 300 / 300 120 / 120
Balance 300 / 300 120 / 120
Review of Systems
-
Unable to obtain full review of systems at this time due to: Dementia
Physical Exam
-
General: No Apparent Distress and Cachectic
HEENT: Normocephalic and Atraumatic
Respiratory: Crackles
Cardiac: Regular Rhythm and S1/S2
GI: Soft and Nontender
Musculoskeletal: No Edema
Neuro: Awake and Alert
Psych: Calm
--- NOTE | 2024-05-13 11:05 | PN.CDI ---
CDI
- -
CDI:
Physician Documentation Request
Admit Date: 05/05/24 18:54
Dear Doctor Abe,
05/06 [employer] Assessment: 'CBW: 90 lbs 5 oz BMI 15.5 underweight range, 05/05. Pts weight previous admission listed as 94 lbs 12/14 reflective of a 4 lb (4%) weight loss in [address] able to visulize protrusion of
clavical, temporal wasting, fat loss over tricepts, Quad and calf muscle wasting. With observed muscle and fat wasting pt meets AND/ASPEN criteria for severe protein calorie malnutrition. '
Based on the above information and your assessment, which of the following most accurately represents the patient's nutritional status?
Severe protein calorie malnutrition
Other
P[place] Criteria ([facility] Hospitalist 2017)
2 or more criteria must be present for either
non severe or severe malnutrition
Note that the criteria differs related to the
presence of an acute or chronic illness
Acute Illness Chronic Illness
Energy Intake Non Severe: <75% for >7 days Non Severe: <75% for >1 month
Severe: <50% for >5 days Severe: <75% for >1 month
Weight Loss Non Severe: 1-2% over 1 week Non Severe: 5% over 1 month
5% over 1 month 7.5% over 3 months
7.5% over 3 months 10% over 6 months
1 year N/A 20% over 1 year
Severe: >2% over 1 week Severe: >5% over 1 month
>5% over 1 month >7.5% over 3 months
>7.5% over 3 months >10% over 6 months
1 year N/A >20% over 1 year
Body Fat Non Severe: Mild Decrease Non Severe: Mild Loss
Severe: Moderate Decrease Severe: Severe Loss
Muscle Mass Non Severe: Mild Decrease Non Severe: Mild Loss
Severe: Moderate Decrease Severe: Severe Loss
Fluid Accumulation Non Severe: Mild Accumulation Non Severe: Mild Accumulation
Severe: Moderate to severe Severe: Moderate to severe
accumulation accumulation
Reduced Review Rn Strength Non Severe: N/A Non Severe: N/A
Severe: Measurably reduced Severe: Measurably reduced
Additional criteria that can be used to Determine if Mild or Moderate Malnutrition (Merck Manual 2018)
Mild Moderate Severe
Albumin gm/dl <3.0 gm/dl <2.5 gm/dl <2.0 gm/dl
Pre Albumin mg/dl <15 gm/dl <10 mg/dl <5.0 mg/dl
BMI <18.5 <17 <16
Use of terms such as suspected, likely, concern for, or probable (associated with a specific diagnosis that is being evaluated, monitored, or treated as if it exists) are acceptable and can be coded in the inpatient setting, when documented at the
time of discharge.
Thank you,
Dayanara Flores RN, BSN
CDI Specialist
Available via [place] text
Please use your independent medical judgment in providing your response.
[2024-05-13 13:25] LABS: Glucose - Point of Care 332 mg/dl (70-99)
[2024-05-13] MEDS: NOVOLOG FLEXPEN-LOW RESISTANCE 4 UNITS SC (13:29)
--- NOTE | 2024-05-13 14:18 | W.PN.ID1 ---
Date of Service
Date of Service: May 13, 2024
Today's Communication
Continue off antibiotics.
Sign off
Assessment / Plan
Impression/Assessment:
Sepsis POA - thought to be secondary to ?CAP vs HAP
Progressing Pulmonary MAC
Dementia
Recommendations:
Continue off of antibiotics.
Little more to add from a Infectious Disease standpoint.
Will see again at your request.
Chief Complaint
-: Pneumonia
Subjective / Review of Systems
Review of Systems: No Fever, No Chills and No Cough
Vital Signs / Physical Exam
Vital Signs
Vital Signs
Temp Pulse Resp BP Pulse Ox
97.6 F 95 16 113/57 98
05/13/24 11:00 05/13/24 11:00 05/13/24 11:00 05/13/24 11:00 05/13/24 11:00
Physical Exam
Constitutional: No Acute Distress, Comfortable, Chronically Ill, Non-toxic and Cachetic
Eyes: Sclera Anicteric
Cardiovascular: S1/S2; Negative S3/S4
Pulmonary: Coarse and Non Labored
Gastrointestinal: Soft and Non Tender
Objective Data
Lab Data
Lab Results
05/13/24 06:09
05/13/24 06:09
Estimated Creat Clear 44 ml/min 05/13/24 06:09
Lactic Acid 1.0 mmol/L (0.7-2.0) 05/05/24 17:50
Total Bilirubin 0.5 mg/dl (0.2-1.3) 05/11/24 06:20
AST 19 U/L (14-36) 05/11/24 06:20
ALT 18 U/L (0-35) 05/11/24 06:20
Alkaline Phosphatase 86 U/L (38-126) 05/11/24 06:20
Most recent labs reviewed.
Micro Results:
05/05/24 17:50 Blood Culture - Final
Blood/Venous No Growth - Final Report
05/05/24 17:50 Blood Culture - Final
Blood/Venous No Growth - Final Report
05/06/24 18:53 Legionella Urinary Antigen - Final
Urine Negative for Legionella pneumophila Serogroup 1 antigen.
A negative result does not rule out the possiblity of
Legionella infection due to other serogroups or species of
Legionella. Clinical correlation is recommended.
Streptococcus pneumoniae Antigen (M - Final
Negative for Streptococcus pneumoniae antigen.
A negative result does not exclude infection with
Streptococcus pneumoniae. Clinical correlation is
recommended.
05/06/24 09:44 Nasal Screen MRSA (PCR) - Final
Nose MRSA not detected - performed by PCR methodology.
Imaging :
CT abd/pelvis 05/05: new right lower lobe opacification compatible with subsegmental atelectasis and/or pneumonia and tiny right pleural effusion. No PE.
CXR on 05/09: diffuse coarsening of the interstitial markings throughout both lungs more prominent on the right than the left, stable when compared with the prior study and consistent with interstitial fibrosis
--- NOTE | 2024-05-13 14:40 | CM ---
Addendum entered by LAZ Solorzano 05/13/24 16:17:
Spoke with patient's nephew who is agreeable to transfer when patient is stable.
Original Note:
Reviewed chart. Spoke with Fani in admissions at [facility] who confirmed that if patient has no behaviors today, she can transfer tomorrow.
Plan: Case management will continue to follow and assist with discharge planning. Bed at [facility] when she is behaviorally stable.
[2024-05-13 16:34] LABS: Glucose - Point of Care 95 mg/dl (70-99)
[2024-05-13] MEDS: LOVENOX 30 MG SC (17:03)
[2024-05-13] MEDS: RISPERDAL M-TAB (ORALLY DISINTEGRATING) 0.5 MG PO (22:06)
[2024-05-13] MEDS: XALATAN OPHTHALMIC SOLUTION 1 DROP BOTH EYES (22:06)
[2024-05-13 22:51] LABS: Glucose - Point of Care 139 mg/dl (70-99)
[2024-05-14 03:54] VITALS: BP 104/48
[2024-05-14 07:33] VITALS: BP 111/51
--- NOTE | 2024-05-14 07:35 | W.PN.UPDATE ---
Addendum entered and electronically signed by Codey Olivares MD 05/14/24 13:26:
Total time spent on d/c = 33 min. This included today's physical exam, progress note, review of laboratory and diagnostic data, preparation of discharge documents and prescriptions, and discussions about the pt's hospital course and discharge plan
with the patient and other medical record technician involved in the patient's care.
Original Note:
Update Note
Progress Note Update
I saw and evaluated the patient independently. I reviewed the resident�s note and agree with findings and plan as documented by Dr. Fish.
Patient denies any new complaints.
Gen: NAD, AAOx1, NCAT, appears chronically ill
Neck: supple.
CV: continues to remain RRR, +S1/S2, no m/r/g.
Resp: continues to remain CTAB anteriorly
Neuro: continues to remain CN 2-12 intact
Psych: calm
CT chest 04/28/24: No PE. 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 Underlying chronic interstitial lung disease not excluded.
CXR 05/05/24: No convincing acute cardiopulmonary process. Chronic interstitial changes.
CXR 05/09/24: Diffuse coarsening of the interstitial markings throughout both lungs more prominent on the right than the left, stable when compared with the prior study and consistent with interstitial fibrosis. Stable blunting of the right
costophrenic angle which may be pleural scarring or minimal effusion
Echo: Left ventricle is small in size. Normal left ventricular wall thickness and
systolic function. No regional wall motion abnormalities are seen. LV ejection
fraction is 60-65% by Jaimes's method of discs. Stage I diastolic dysfunction
suggestive of abnormal relaxation.
Mild mitral regurgitation.
Syncope:
-occurred 05/12/24 while having a BM, likely vasovagal
-appreciate cardiology
-Telemetry without arrhythmias or high degree HB that would account for patient's syncope
-echo above
Sepsis, POA:
-initially thought to be due to PNA (CAP vs HAP as pt was recently hospitalized) vs progressive MARITZA (most likely)
-Imaging not consistent with bacterial pneumonia, more likely progressive MARITZA
-was on IV steroids, now off
-pulm following
-Strep/Legionella urinary antigens NEG, MRSA screen NEG, BCxs NG, COVID NEG
-was on Cefepime but with likely acute toxic encephalopathy due to cefepime, abx changed to Levaquin as per pulm recs. As Levaquin can also cause acute toxic encephalopathy it was stopped Levaquin. On 05/10/24, upon case review, I did not see any
indication for antibiotic therapy. ID was consulted and Dr. Gonzales agreed.
Acute on chronic hypoxic respiratory failure
-baseline chronic hypoxic respiratory failure due to COPD (on 2L NC O2 at baseline)
Dementia:
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
-psych following
-Continue Risperdal
Other problems:
Severe protein calorie malnutrition
Hyponatremia, mild: possibly due to dehydration vs SIADH from chronic lung issues. Was on IVFs, now off
Constipation: improved with bowel regimen
Glaucoma: cont latanoprost
Steroid induced hyperglycemia: a1c 6.3%, SSI/accuchecks
Lovenox/DNR
Remains medically stable for d/c since 05/13/24AM. Case management aware.
[2024-05-14 07:46] LABS: Glucose - Point of Care 116 mg/dl (70-99)
[2024-05-14] MEDS: ADVAIR HFA 45/21 MCG INHALER 2 PUFF INH (07:53)
[2024-05-14] MEDS: NOVOLOG FLEXPEN-LOW RESISTANCE SC (09:15)
[2024-05-14] MEDS: RISPERDAL M-TAB (ORALLY DISINTEGRATING) 0.25 MG PO ×2 (09:15→16:44)
[2024-05-14] MEDS: MUCINEX 600 MG PO (09:15)
--- NOTE | 2024-05-14 10:43 | W.PN.HOSP.TC ---
Today's Communication/Plan
-
.
Assessment / Plan
Assessment / Plan
1. Pneumonia, CAP versus HAP
-Potential pneumonia seen on CT of the chest in the ED.
-Vs. chronic MARITZA/pulmonary fibrosis (more likely at this point)
-Cefepime continued while in hospital; per pulm recs: switch to Levaquin 500 PO on discharge for total of 7 days of abx.
- Given the patient's episodes of agitation, hesitant to start Levaquin due to potential for encephalopathy.
- Consulted ID for reccs
- Pt clinically improved and taken off of antibiotics for concern for medication induced AMS.
-Consider oil heaterman prophylaxis at discharge.
2. SIRS with a potential source of infection
- WBC 16.1 + tachycardia/tachypnea in ED --> WBC 11.5 --> 17.3 (pt clinically improving, consider steroid induced leukocytosis)
- WBC 11.3 today
-Blood cultures negative over course of admission
-Lactate WNL
3. Acute hypoxic respiratory insufficiency
-Patient's baseline is 2 L; required 4-5L on admission; patient back to baseline over last 48 hours. Ready for discharge clinically, await CM.
-Bronchiectasis noted on CT
-Continue DuoNeb treatment while still in hospital
-Steroids discontinued (see below)
-Pulmonary consult appreciated
-COVID test negative
-Speech/nutrition consult for concerns for aspiration and pulmonary cachexia: reccs Level 6 soft/bite sized diet
-Home O2 Assessment
4. Hypochloremic hyponatremia
-132--> 130 --> 133 --> 134--> 135 --> 131
- Continue to monitor BMP; Goal 135-145
- Consider renal if abnormal
5. Glaucoma
-Continue home medication, Latanoprost
6. DVT prophylaxis
-Lovenox
7. Hyperglycemia
- ACHS glucose checks
- SS Insulin Started
- Likely steroid induced hyperglycemia
- improved today POC glucose in the low 100s
8. Constipation
- improving. Continue to monitor BMs.
9. Agitation/Confusion
- Pt needs to return to [place], longer she stays here the worse the episodes of sundowning will become. Medically ready to be d/c to [place] or SNF; awaiting placement.
- Likely steroid induced; steroid treatment discontinued as patient back to respiratory baseline.
- Seen by Psych; Seroquel 25mg qd @ 1600 + PRN seroquel 25 mg for agitation
- Risperdal PRN
- No agitation for 48 hours.
10. Syncope
- VSS after event, EKG shows NSR
- Likely vasovagal
- Cards agrees, signed off
Medically Cleared for D/c; CM aware.
Anticipated Discharge: Today
Subjective/Interval History
-
Date of Service: May 14, 2024
No acute complaints. Patient is resting comfortably eating her breakfast. History is limited secondary to dementia.
Objective Data
-
Vital Signs:
Vital Signs
Temp Pulse Resp BP Pulse Ox
97.6 F 87 16 111/51 96
05/14/24 07:33 05/14/24 07:54 05/14/24 07:54 05/14/24 07:33 05/14/24 07:54
I&O
05/13/24 05/14/24 05/15/24
06:59 06:59 06:59
Intake Total 300 / 300 340 / 340
Balance 300 / 300 340 / 340
Review of Systems
-
Unable to obtain full review of systems at this time due to: Dementia
Physical Exam
-
General: No Apparent Distress, Comfortable, Conversant and Other (frail)
HEENT: Normocephalic and Atraumatic
Respiratory: Clear to Auscultation
Cardiac: Regular Rhythm and S1/S2
GI: Soft
Skin: Warm and Dry
Neuro: Awake and Alert
Psych: Calm
[2024-05-14 11:29] VITALS: BP 116/56
[2024-05-14 11:54] LABS: Glucose - Point of Care 157 mg/dl (70-99)
[2024-05-14] MEDS: NOVOLOG FLEXPEN-LOW RESISTANCE 1 UNITS SC (12:33)
--- NOTE | 2024-05-14 13:23 | CM ---
Reviewed chart, spoke with RN who stated that in report he was advised that patient had a minor episode of combativeness last evening which warranted soft limb restraints for a small duration. Placed a call to Fani in admissions to update. She spoke
with manager medical who stated that patient can go to SNF today. Attending updated. Will call nephew.
# For report [phone] and fax# [phone]
Will complete medical necessity and transfer sheet.
Will review IMM with patient's nephew.
Plan: Case management will continue to follow and assist with discharge planning. [place] today.
[2024-05-14 15:23] VITALS: BP 123/63
== END 2024-05-14 17:13 | DRG 871 ==
LOC: 3 WEST ACU 18:54
PROVIDERS: ADMITTING PHYSICIAN Internal Medicine; ATTENDING PHYSICIAN Internal Medicine; CONSULT PHYSICIAN Internal Medicine Infectious Disease; CONSULT PHYSICIAN Psychiatry & Neurology Psychiatry; EMERGENCY PHYSICIAN Emergency Medicine; FAMILY PHYSICIAN Family Medicine; OTHER PHYSICIAN Internal Medicine Critical Care Medicine; OTHER PHYSICIAN Internal Medicine Interventional Cardiology
DX: A41.9 Sepsis, unspecified organism (principal); E43 Unspecified severe protein-calorie malnutrition; J18.9 Pneumonia, unspecified organism; J96.21 Acute and chronic respiratory failure with hypoxia; G92.8 Other toxic encephalopathy; J44.0 Chronic obstructive pulmonary disease with (acute) lower respiratory infection; Z66 Do not resuscitate; F02.818 Dementia in other diseases classified elsewhere, unspecified severity, with other behavioral disturbance; F02.811 Dementia in other diseases classified elsewhere, unspecified severity, with agitation; J47.0 Bronchiectasis with acute lower respiratory infection; R64 Cachexia; Z68.1 Body mass index [BMI] 19.9 or less, adult; E22.2 Syndrome of inappropriate secretion of antidiuretic hormone; E87.8 Other disorders of electrolyte and fluid balance, not elsewhere classified; D75.839 Thrombocytosis, unspecified; G30.9 Alzheimer's disease, unspecified; D64.9 Anemia, unspecified; H40.9 Unspecified glaucoma; K59.00 Constipation, unspecified; K21.9 Gastro-esophageal reflux disease without esophagitis; R73.9 Hyperglycemia, unspecified; T38.0X5A Adverse effect of glucocorticoids and synthetic analogues, initial encounter; R55 Syncope and collapse; Z87.891 Personal history of nicotine dependence; Z99.81 Dependence on supplemental oxygen; Z11.52 Encounter for screening for COVID-19
CPT/HCPCS: 71045; 71275; 74177; 74230; 76700; 80048; 80053; 81003; 82962; 83036; 83605; 83690; 83735; 83930; 83935; 84300; 84484; 85025; 85027; 87040; 87449; 87641; 87811; 87899; 92526; 92610; 92611; 93005; 93306; 94640; 96365; 96375; 97116; 97162; 97166; 97530; 97535; 99285; Q9967

== ENCOUNTER 2024-08-02 10:53 | Emergency (ER) | payer MEDICARE, OTHER, SELFPAY ==
[2024-08-02 11:05] VITALS: BP 112/58
[2024-08-02 11:07] VITALS: BMI 15.9
[2024-08-02 11:10] VITALS: BP 103/61
[2024-08-02 11:35] LABS: % Basophils 0.6 % (0-2); % Eosinophils 0.2 % (0-6); % Immature Granulocytes 0.8 % (0-0.5); % Lymphocytes 16.1 % (20.5-51.1); % Monocytes 12.7 % (1.7-9.3); % Neutrophils 69.6 % (42.2-75.2); Absolute Immature Granulocytes 0.1 10^3/uL (0-0.05); Absolute Monocytes 0.8 10^3/uL (0.1-0.6); Absolute Neutrophils 4.4 10^3/uL (1.4-6.5); Hematocrit 38.7 % (37.0-47.0); Hemoglobin 12.3 g/dL (12.0-16.0); Mean Corp Hgb Conc. 31.8 g/dL (33.0-37.0); Mean Corpuscular Hgb 26.9 pg (27.0-31.0); Mean Corpuscular Volume 84.5 fL (81.0-99.0); Mean Platelet Volume 9.1 fL (7.4-10.4); Nucleated Red Blood Cells % 0 %; Platelet Count 368 10^3/uL (130-400); Red Blood Cell Count 4.58 10^6/uL (4.20-5.40); Red Cell Dist. Width 13.4 % (11.5-14.5); White Blood Cell Count 6.3 10^3/uL (4.8-10.8)
[2024-08-02 11:43] LABS: COVID-19 Antigen Positive (Negative)
[2024-08-02 11:47] LABS: ALT (SGPT) 11 U/L (0-35); AST (SGOT) 26 U/L (14-36); Albumin 3.8 g/dl (3.5-5.0); Alkaline Phosphatase 68 U/L (38-126); Blood Urea Nitrogen 12 mg/dl (7-17); Calcium 8.3 mg/dl (8.4-10.2); Carbon Dioxide 31 mmol/L (22-30); Chloride 90 mmol/L (98-107); Estimated Creatinine Clearance 45 ml/min; Glucose 131 mg/dl (70-99); Potassium 4.3 mmol/L (3.5-5.1); Sodium 129 mmol/L (135-145); Total Bilirubin 0.5 mg/dl (0.2-1.3); Total Protein 8.2 g/dl (6.3-8.2); eGFR > 60.00
[2024-08-02 12:00] VITALS: BP 111/60
--- NOTE | 2024-08-02 12:02 | ED.GENMED ---
History of Present Illness
General
Chief Complaint: Breathing Problem
Source: patient and ambulance crew
Exam Limitations: dementia
Time Seen by Provider: 08/02/24 11:34
Nursing documentation reviewed up to this point in time: agreed with
History of Present Illness
History of Present Illness:
84-year-old female presents emergency department due to respiratory distress. She was coughing. She denies any complaints at this time. She has a history of dementia.
Past History
Past History
ED Past Medical History: COPD, GERD and Other (Glaucoma)
ED Past Surgical History: Other (abdominal hernia repair)
Social History
Tobacco: Non-smoker
Alcohol: None
Drug: None
Living: assisted living
Review of Systems
Review of Systems
Allergies reviewed?: Yes
All Other Systems: Not applicable
Constitutional: Reports no symptoms
EENT: Reports no symptoms
Respiratory: Reports cough and trouble breathing
Cardiac: Reports no symptoms
ABD/GI: Reports no symptoms
: Reports no symptoms
Musculoskeletal: Reports no symptoms
Skin: Reports no symptoms
Neurological: Reports no symptoms
Endocrine: Reports no symptoms
Hematologic/Lymphatic: Reports no symptoms
Psychiatric: Reports no symptoms
Phy Exam
Physical Exam
Physical Exam:
Physical Exam
General: no apparent distress, not acutely ill
Neck: supple. no meningeal signs. normal posterior pharynx
Heart: s1/s2 regular rate and rhythm, no murmur. equal radial
pulses.
HEENT: Pupils equal round reactive to light, EOMI
Lungs: no acute respiratory distress. clear bilaterally, intermittent cough
Abdomen: normal bowel sounds. not tender. no CVAT
Neuro: alert and oriented to person. no focal neurological deficits cranial nerves II through XII intact
Skin: no rash
Psychiatric: well kept. interactive and cooperative
Extremities: no edema. no calf tenderness. negative homans. good distal pulses
Scores
Heart Failure Risk
Heart Failure Risk Score: Not Applicable
Course
Orders/Labs/Results
Orders:
Orders
08/02/24 11:20
Electrocardiogram (*1) Urgent
Reason for Study: Shortness of Breath
EKG- Treatment ONCE
08/02/24 11:22
COVID-19 Antigen Urgent
Source: Nasal Swab
Complete Blood Count/With Diff Urgent
Comprehensive Metabolic Panel Urgent
Influenza A+B Rapid Molecular Urgent
TK Source: Nasal Swab
Specimen Description:
08/02/24 12:01
CR Chest - 2 Views Urgent
Comment:
Reason For Exam: short of breath, covid
08/02/24 13:33
IV Insert/Care/Rem.- Treatment PRN
Cefepime HCl [Maxipime] 1,000 mg IV NOW STA
08/02/24 13:35
Vancomycin 1 Gram/200 ml [Vancocin] 1 gram in 200 ml IV NOW
08/02/24 13:51
Blood Culture Q30M
TK Source: Blood/Venous
Specimen Description:
Blood Culture Q30M
TK Source: Blood/Venous
Specimen Description:
08/02/24 14:12
Amoxicillin 875 mg/Clav 125 mg [Augmentin 875 mg/125 mg] 1 tablet PO NOW STA
Doxycycline [Vibramycin] 100 mg PO NOW STA
Abnormal Lab Results
08/02/24
11:22
MCH 26.9 L pg
(27.0-31.0)
MCHC 31.8 L g/dL
(33.0-37.0)
Abs Immat Gran (auto) 0.1 H 10^3/uL
(0-0.05)
Absolute Lymphs (auto) 1.0 L 10^3/uL
(1.2-3.4)
Absolute Monos (auto) 0.8 H 10^3/uL
(0.1-0.6)
Immature Gran % 0.8 H %
(0-0.5)
Lymphocytes % 16.1 L %
(20.5-51.1)
Monocytes % 12.7 H %
(1.7-9.3)
Sodium 129 L mmol/L
(135-145)
Chloride 90 L mmol/L
(98-107)
Carbon Dioxide 31 H mmol/L
(22-30)
Glucose 131 H mg/dl
(70-99)
Calcium 8.3 L mg/dl
(8.4-10.2)
SARS-CoV-2 Antigen Positive A
(Negative)
08/02/24 11:22
08/02/24 11:22
Vital Signs
Initial and Last Documented VS:
Initial Vital Signs
Temp Pulse Resp BP Pulse Ox
97.7 F 83 18 112/58 85
08/02/24 11:05 08/02/24 11:05 08/02/24 11:05 08/02/24 11:05 08/02/24 11:05
Last Documented Vital Signs
Temp Pulse Resp BP Pulse Ox
97.7 F 80 25 103/61 92
08/02/24 11:05 08/02/24 11:45 08/02/24 11:45 08/02/24 11:10 08/02/24 11:45
MDM/Problems Addressed
Differential Diagnosis Includes:
Pneumonia, COVID, COPD
MDM/Problems Addressed:
84-year-old female with no respiratory distress, COVID-positive, questionable bilateral pneumonia on chest x-ray. Discussed with son, who would like her to go home due to her dementia and sundowning. He is aware of risks. Will treat with
Augmentin and doxycycline
Chronic conditions affecting care: COPD
Acute Exacerbation and/or Progression of Chronic Illness: COPD
*Radiology
Radiology exam reviewed: radiology read reviewed (Chest x-ray bilateral pneumonia)
*Pulse Oximetry
Patient hypoxic: no
*EKG
Interpreted by ED Provider?: Yes
EKG Intrepretation Date: 08/02/24
EKG Intrepretation Time: 11:33
Interpretation: abnormal
Comparison EKG: no comparison EKG present
Heart Rate: 93
Rate: normal
Rhythm: sinus and PVC's
[place]: normal axis and left axis deviation
Interval: normal interval
QRS Pattern: normal QRS
Ischemia: no ischemia
*Salesperson Furs Interpretation
Rate: Salesperson Furs- N/A
*Critical Care Note
Total Time (30-74mins, 75-104mins- exclusive of procedures): Not Applicable
Patient Management
Social determinants of health affecting care: Living situation and Strong social support
Escalation/DeEscalation of care consider admission/obs:
Admission considered, but son would like to take patient home
ED Attending Note
-
Portions of this chart may have been created with voice recognition software.� Occasional wrong word or��sound alike� substitutions may have occurred due to the inherent limitations of voice recognition software.
Discharge Plan
Departure
Patient Disposition: Fpc/SNF
Date of Disposition: 08/02/24
Time of Disposition: 14:04
Admit to: Telemetry
Condition: Good
Discharge Problem:
COPD (chronic obstructive pulmonary disease), COVID-19, Pneumonia
Instructions: Pneumonia in adults, Exacerbation of COPD (DC), COVID-19 - ED discharge instructions
Prescriptions:
New
amoxicillin-pot clavulanate 875-125 mg tablet
1 tab PO BID Qty: 20 0RF
doxycycline hyclate 100 mg capsule
100 mg PO BID Qty: 20 0RF
No Action
latanoprost 0.005 % Drops
1 drp BOTH EYES BID
fluticasone propion-salmeterol [Wixela Inhub] 100-50 mcg/dose Blister With Device
1 inh INHALATION R BID
albuterol sulfate 90 mcg/actuation HFA aerosol inhaler
2 puff inhalation R Q6HPRN PRN (Reason: shortness of breath or wheezing)
guaifenesin 600 mg tablet extended release 12hr
600 mg PO Q12
Referrals:
Rima Norman MD [Family Provider] - Call in 1-3 days for appt
Interventions
Interventions:
*Risk Screen - Suicide Last Done: 08/02/24 11:08
*General Assessment Last Done: 08/02/24 11:08
*Neglect/Abuse Screening Last Done: 08/02/24 11:08
ED- Fall Risk Assessment Last Done: 08/02/24 11:09
*ED COVID-19 Vaccine History Last Done: 08/02/24 11:08
ED- Cardiac Assessment Last Done: 08/02/24 11:08
ED- Pulmonary Assessment Last Done: 08/02/24 11:08
Discharge Date and Time
Print Language: SWAZI
[2024-08-02 13:16] VITALS: BP 126/82
--- NOTE | 2024-08-02 13:58 | HPS.HSE ---
Family Physician
-
Family Physician: Rima Norman MD
Chief Complaint
History of Present Illness
84-year-old female from [facility] sent in for respiratory distress with oxygen 85% on room air however patient is supposed to be chronically on 2 L nasal cannula O2 did improve to 92% on 2 L. Patient has history of dementia unable to give
review of systems or history of present illness. She is COVID-positive in the ER with bilateral pneumonia right midlung opacity and left lower lung opacity
Past medical history chronic MARITZA/pulmonary fibrosis, chronic hypoxic respiratory insufficiency on 2 L nasal cannula baseline, hypochloremic hyponatremia, glaucoma, dementia, agitation/confusion/sundowning, vasovagal syncope
Impression/plan:
Admit to telemetry
Acute on chronic hypoxic respiratory insufficiency secondary to COVID 19 infection and bilateral pneumonia.
Chronic hypoxic respiratory insufficiency secondary to MARITZA/ILD 2 L nasal cannula dependent
-Influenza negative
-WBC 6.3, 97.7F, HR 80 85% RA, 92% 2 LNC
103/61
CXR: Patchy area of parenchymal opacity involving the lateral left lower lung. BN shaped focus opacity in the right midlung.
Acute on chronic hypochloremic hyponatremia
NA 129, chloride 90 (baseline appears 94�96)
IV NSS
Check random cortisol in the a.m., check TSH with free T4 reflex, urine osmo, urine sodium, serum Osmo
Pneumonia, CAP versus HAP
-Potential pneumonia seen on CT of the chest in the ED.
-Vs. chronic MARITZA/pulmonary fibrosis (more likely at this point)
-Cefepime continued while in hospital; per pulm recs: switch to Levaquin 500 PO on discharge for total of 7 days of abx.
- Given the patient's episodes of agitation, hesitant to start Levaquin due to potential for encephalopathy.
- Consulted ID for reccs
- Pt clinically improved and taken off of antibiotics for concern for medication induced AMS.
-Consider assisted prophylaxis at discharge.
2. SIRS with a potential source of infection
- WBC 16.1 + tachycardia/tachypnea in ED --> WBC 11.5 --> 17.3 (pt clinically improving, consider steroid induced leukocytosis)
- WBC 11.3 today
-Blood cultures negative over course of admission
-Lactate WNL
3. Acute hypoxic respiratory insufficiency
-Patient's baseline is 2 L; required 4-5L on admission; patient back to baseline over last 48 hours. Ready for discharge clinically, await CM.
-Bronchiectasis noted on CT
-Continue DuoNeb treatment while still in hospital
-Steroids discontinued (see below)
-Pulmonary consult appreciated
-COVID test negative
-Speech/nutrition consult for concerns for aspiration and pulmonary cachexia: reccs Level 6 soft/bite sized diet
-Home O2 Assessment
4. Hypochloremic hyponatremia
-132--> 130 --> 133 --> 134--> 135 --> 131
- Continue to monitor BMP; Goal 135-145
- Consider renal if abnormal
5. Glaucoma
-Continue home medication, Latanoprost
6. DVT prophylaxis
-Lovenox
7. Hyperglycemia
- ACHS glucose checks
- SS Insulin Started
- Likely steroid induced hyperglycemia
- improved today POC glucose in the low 100s
8. Constipation
- improving. Continue to monitor BMs.
9. Agitation/Confusion
- Pt needs to return to [place], longer she stays here the worse the episodes of sundowning will become. Medically ready to be d/c to [place] or SNF; awaiting placement.
- Likely steroid induced; steroid treatment discontinued as patient back to respiratory baseline.
- Seen by Psych; Seroquel 25mg qd @ 1600 + PRN seroquel 25 mg for agitation
- Risperdal PRN
- No agitation for 48 hours.
10. Syncope
- VSS after event, EKG shows NSR
- Likely vasovagal
- Cards agrees, signed off
Medically Cleared for D/c; CM aware.
Medical History
Allergies / Home Medications
Allergies reflects when Allergies were last updated in [facility].
Home Medications with original date entered in [facility]
Physical Exam
Vital Signs
Vital Signs
Temp Pulse Resp BP Pulse Ox
97.7 F 80 25 103/61 92
08/02/24 11:05 08/02/24 11:45 08/02/24 11:45 08/02/24 11:10 08/02/24 11:45
Laboratory Results
-
08/02/24 11:22
08/02/24 11:22
Laboratory Results
Total Bilirubin 0.5 mg/dl (0.2-1.3) 08/02/24 11:22
AST 26 U/L (14-36) 08/02/24 11:22
ALT 11 U/L (0-35) 08/02/24 11:22
Alkaline Phosphatase 68 U/L (38-126) 08/02/24 11:22
Impression/Plan
-
IMPRESSION:
PLAN:
[2024-08-02] MEDS: AUGMENTIN 875 MG/125 MG 1 TABLET PO (14:30)
[2024-08-02] MEDS: VIBRAMYCIN 100 MG PO (14:30)
[2024-08-02 15:12] VITALS: BP 124/72
[2024-08-02 18:01] VITALS: BP 119/74
== END 2024-08-02 18:03 ==
LOC: EMR 10:53
PROVIDERS: EMERGENCY PHYSICIAN Emergency Medicine; FAMILY PHYSICIAN Family Medicine
DX: U07.1 COVID-19 (principal); J12.82 Pneumonia due to coronavirus disease 2019; J44.0 Chronic obstructive pulmonary disease with (acute) lower respiratory infection; K21.9 Gastro-esophageal reflux disease without esophagitis
CPT/HCPCS: 99285; 71046; 80053; 85025; 87040; 87502; 87811; 93005